=== PATIENT | male | born 1960 | race Caucasian/White ===

== ENCOUNTER 2018-02-19 21:29 | Emergency (ER) | payer SELFPAY ==
[2018-02-19 21:32] VITALS: BP 184/106; PULSE 110; RESP 24; TEMP 36.9; O2SAT 97
[2018-02-19] MEDS: ONDANSETRON 4 MG/2 ML INJ IV ×2 (21:57→23:10)
[2018-02-19] MEDS: LORazepam 2 MG/ML SYRINGE 1 MG IV (21:57)
[2018-02-19 22:11] LABS: Add Manual Diff / Slide Review NO; Basophils Percent Auto 0.9 % (0-2); Eosinophils Percent Auto 0.4 % (2-4); Hematocrit 39.7 % (41-53); Hemoglobin 13.9 g/dL (13.5-17.5); Lymphocytes Percent Auto 7.2 % (25-40); Mean Corpuscular Volume 97.3 fL (80-100); Monocytes Percent Auto 7.4 % (3-14); Neutrophils Absolute Auto 3700 /uL (3000-5900); Neutrophils Percent Auto 84.1 % (50-75); Red Blood Cell Count 4.08 X10^6/uL (4.5-5.9); Red Cell Distribution Width 14.3 % (11.6-14.8); White Blood Cell Count 4.4 X10^3/uL (4.5-11.0)
[2018-02-19] MEDS: SODIUM CHLORIDE 0.9% 1,000 ML 150 ML IV (22:13)
--- NOTE | 2018-02-19 22:13 | PC.NURSE ---
pt comes in via [facility]. states he had been a long time hard life drinker and stopped four years ago. pt experienced stressors latley and began to drink again. Pt states he drank a fith a day for last two weeks or so. stopped cold turkey yesterday at 4pm. began having headaches and tremmors today and called EMS for help. pt had one liter infused in EMS rig and provider verbally changed ordered rate to 150ml/hr for TKO. Pt states he has withdrawn in the past and has experienced headaches, tremmors and sweats. never siezed. Provider notified and orders recieved.
[2018-02-19 22:28] LABS: Platelet Count 41 X10^3/uL (150-400)
[2018-02-19 22:30] LABS: Alanine Aminotransferase 173 IU/L (21-72); Albumin 4.9 g/dL (3.5-5.0); Albumin Globulin Ratio 1.5 (1.0-2.8); Alkaline Phosphatase 101 U/L (38-126); Aspartate Aminotransferase 234 IU/L (17-59); BUN Creatinine Ratio 17.1 (6-22); Bilirubin Total 3.5 mg/dL (0.2-1.3); Blood Urea Nitrogen 12 mg/dL (9-20); Carbon Dioxide 26 mmol/L (22-32); Chloride 101 mmol/L (98-107); Estimated Glomerular Filt Rate > 60.0 mL/min (>60); Ethanol (ETOH) < 10 mg/dL; Globulin 3.3 g/dL (1.7-4.1); Glucose 140 mg/dL (70-100); HEMOLYSIS < 15 (0-50); Lipase 316 U/L (23-300); Potassium 3.7 mmol/L (3.4-5.1); Sodium 141 mmol/L (137-145); Total Protein 8.2 g/dL (6.3-8.2)
--- NOTE | 2018-02-19 22:56 | DI.US.S_ITS ---
PROCEDURE: US ABDOMEN COMPLETE INDICATIONS: ruq pain elevated bili TECHNIQUE: Real-time scanning was performed of the abdominal and retroperitoneal organs, with image documentation. COMPARISON: None. FINDINGS: Liver: Hepatic parenchyma is mottled and demonstrates increased echogenicity, compatible with steatosis. Gallbladder: Demonstrates calculi within its lumen but no evidence of wall thickening. Gallbladder is distended. Biliary ducts: Intrahepatic bile ducts are non-dilated. Extrahepatic bile duct caliber measures 8 mm. Normal is 6-7 mm or less in diameter, or 10 mm or less post-cholecystectomy. Pancreas: Visualized portions of the pancreas are sonographically normal. Spleen: Spleen is normal in size and homogeneous in echotexture. Kidneys: Kidneys are normal in size and echotexture. Right kidney measures 12.5 cm long; left kidney measures 13.8 cm long. No hydronephrosis or nephrolithiasis. No solid masses. Aorta: Not well-seen Iliacs: Not well-seen IVC: Not well-seen Miscellaneous: No free abdominal fluid. IMPRESSION: 1. Mottled appearance of hepatic parenchyma. Hepatic steatosis. 2. Cholelithiasis. Mild gallbladder distention. Recommend correlation with clinical symptoms for cholecystitis. 3. Concordant with preliminary interpretation. Dictated by: Meghna Emery M.D. on 02/20/2018 at 10:22 Approved by: Meghna Emery M.D. on 02/20/2018 at 10:25
--- NOTE | 2018-02-19 23:04 | ED_ITS ---
HPI - Alcohol General Chief Complaint: Toxicology Problem Stated Complaint: ETOH Time Seen by Provider: 02/19/18 21:44 Source: EMS Mode of arrival: EMS Limitations: no limitations History of Present Illness HPI narrative: Patient is a 57-year-old male who presents with alcohol withdrawal. He was sober previously for the last 4 years until 2 weeks ago. He recently moved here not much social life. He started drinking a 5th a day. Last drink was yesterday. Started having chest pain and vomiting today. He started feeling shaking unable to keep anything down. He said he previously home when to [facility] and then his checked himself into rehab place in [place]. complaint: alcohol withdrawal Related Data Home Medications Medication Instructions Recorded Confirmed labetalol 100 mg PO BID #0 tab 04/29/16 lisinopril 10 mg PO QDAY #0 04/29/16 Previous Rx's Medication Instructions Recorded lorazepam [Ativan] 2 mg PO SEE INSTRUCTIONS #11 tab 03/14/16 ondansetron [Zofran ODT] 4 mg SUBLINGUAL Q6HP PRN #10 odt 03/14/16 lorazepam [Ativan] 1 mg PO QD-BID PRN #7 tab 02/20/18 ondansetron HCl [Zofran] 4 mg PO Q6-8H PRN #10 tab 02/20/18 Allergies Allergy/AdvReac Type Severity Reaction Status Date / Time caffeine [CAFFEINE] Allergy Unknown RASH, FEVER Verified 02/19/18 23:02 codeine [CODEINE] Allergy Unknown RASH Verified 02/19/18 23:02 Review of Systems Review of Systems All systems reviewed & are unremarkable except as noted in HPI and below Constitutional Denies chills, Denies fever(s), Denies lethargy and Denies weakness Eyes Denies blurry vision Cardiovascular Reports chest pain (Worse with breathing and movement), Denies dyspnea and Denies dyspnea on exertion Respiratory Denies cough, Denies dyspnea, Denies dyspnea on exertion and Denies wheezing Gastrointestinal Gastrointestinal: Reports as per HPI Neurologic Denies confusion and Denies weakness Psychiatric Denies anxiety, Denies confusion and Denies mood swings Allergic/Immunologic Denies wheezing PFSH Medical History Alcohol abuse (Acute) Social History alcohol intake: current Exam Initial Vital Signs Initial Vital Signs: Vital Signs Temperature 98.4 F 02/19/18 21:32 Pulse Rate 110 H 02/19/18 21:32 Respiratory Rate 24 02/19/18 21:32 Blood Pressure 184/106 H 02/19/18 21:32 Pulse Oximetry 97 02/19/18 21:32 GENERAL: [Well-appearing, well-nourished] and in [no acute] distress. HEENT: Head atraumatic,EOMI, pupils reactive, face symmetric CARDIOVASCULAR: Regular rate and rhythm without murmurs, rubs or gallops. RESPIRATORY: Breath sounds equal bilaterally, no wheezes rales or rhonchi. ABDOMEN: Soft, nontender. Normoactive bowel sounds all 4 quadrants. No guarding or rebound. EXTREMITIES: Normal range of motion, no clubbing or edema. Neurovascularly intact NEUROLOGICAL: Alert and oriented x4.Normal gait and speech. Cranial nerves II through XII grossly intact. No tremors, no asterixis. SKIN: Warm, dry, no laceration, no petechiae, no rashes or lesions. Course Orders Ordered: Discontinued Medications Sodium Chloride (Normal Saline 0.9%) 1,000 mls @ 1,000 mls/hr IV BOLUS ONE Stop: 02/19/18 22:43 Last Infusion: 02/20/18 05:45 Dose: 0 mls/hr Admin: 02/19/18 22:13 Dose: 150 mls/hr Lorazepam (Ativan) 1 mg IV NOW ONE Stop: 02/19/18 21:45 Last Admin: 02/19/18 21:57 Dose: 1 mg Lorazepam (Ativan) 2 mg IV NOW ONE Stop: 02/19/18 22:57 Last Admin: 02/19/18 23:10 Dose: 2 mg Lorazepam (Ativan) 2 mg IV NOW ONE Stop: 02/20/18 03:31 Last Admin: 02/20/18 05:05 Dose: 2 mg Ondansetron HCl (Zofran) 4 mg IV NOW ONE Stop: 02/19/18 21:45 Last Admin: 02/19/18 21:57 Dose: 4 mg Ondansetron HCl (Zofran) 4 mg IV NOW ONE Stop: 02/19/18 22:57 Last Admin: 02/19/18 23:10 Dose: 4 mg Vital Signs - 8 hr 02/19/18 21:32 Temperature 98.4 F Pulse Rate 110 H Respiratory Rate 24 Blood Pressure 184/106 H Pulse Oximetry 97 MDM - Alcohol Lab Data Attestation: I reviewed the patient's lab results. Result diagrams: 02/19/18 22:00 02/19/18 22:00 Labs: Lab Results 02/19/18 02/19/18 02/19/18 Range/Units 22:00 22:00 22:00 WBC 4.4 L (4.5-11.0) X10^3/uL RBC 4.08 L (4.5-5.9) X10^6/uL Hgb 13.9 (13.5-17.5) g/dL Hct 39.7 L (41-53) % MCV 97.3 (80-100) fL MCH 34.0 (26-34) PG MCHC 35.0 (30-36) % RDW 14.3 (11.6-14.8) % Plt Count 41 L (150-400) X10^3/uL Neut % (Auto) 84.1 H (50-75) % Lymph % (Auto) 7.2 L (25-40) % [place] % (Auto) 7.4 (3-14) % Eos % (Auto) 0.4 L (2-4) % Baso % (Auto) 0.9 (0-2) % Neut # (Auto) 3700 (6000-3577) /uL Sodium 141 (137-145) mmol/L Potassium 3.7 (3.4-5.1) mmol/L Chloride 101 (98-107) mmol/L Carbon Dioxide 26 (22-32) mmol/L BUN 12 (9-20) mg/dL Creatinine 0.70 (0.66-1.25) mg/dL Estimated GFR > 60.0 (>60) mL/min BUN/Creatinine Ratio 17.1 (6-22) Glucose 140 H (70-100) mg/dL Calcium 10.0 (8.4-10.2) mg/dL Total Bilirubin 3.5 H (0.2-1.3) mg/dL AST 234 H (17-59) IU/L ALT 173 H (21-72) IU/L Alkaline Phosphatase 101 (38-126) U/L Total Creatine Kinase 438 H (55-170) U/L CK-MB (CK-2) 5.00 H (<2.37) ng/mL CK-MB (CK-2) Rel Index 1.1 L (1.5-5.0) % Troponin I < 0.012 (0.01-0.034) ng/mL Total Protein 8.2 (6.3-8.2) g/dL Albumin 4.9 (3.5-5.0) g/dL Globulin 3.3 (1.7-4.1) g/dL Albumin/Globulin Ratio 1.5 (1.0-2.8) Lipase 316 H (23-300) U/L Ethyl Alcohol < 10 mg/dL Imaging Data Chest x-ray: Attestation: I personally reviewed and interpreted this imaging study as follows: My impression: No acute cardiopulmonary process US - abdomen: Radiologist's impression: 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 Negative reported sonographic Prajapati sign but correlate with whether patient was premedicated. No bile duct dilation or eliana cholecystic fluid. Slightly dilated at 8 mm common bile duct. Not seen distally. Hepatomegaly and fatty liver. Limited visual lies a peña of pain crease and distal duci. MDM Narrative Medical decision making narrative: Patient requires couple doses of IV Ativan but overall does not appear in or delirium tremens. Noted to have elevated bilirubin and liver enzymes. And 2016 total bilirubin was 1.4, AST 194 and ALT 177. Today total bilirubin 3.5 AST 234 and ALT 173. He is reexamined multiple times without any right upper quadrant pain. Ultrasound does show sludge and stones. At this time I have discussed with him that he may electively require a cholecystectomy however a without pain or symptoms at this time likely not needed emergently. I think liver enzymes and bilirubin are likely from recent alcohol use. Discharge Plan Departure Patient Disposition: Home, Self-Care Clinical Impression: Alcohol withdrawal Discharge Date/Time: 02/20/18 05:45 Interventions: ED Discharge Assessment Last Done: 02/20/18 05:46 Instructions: DI for Drug or Alcohol Withdrawal Activity Restrictions/Additional Instructions: *You have been diagnosed with alcohol withdrawal *What to do: New may eventually need to have your gallbladder removed, please make appointment with surgery in the next 1-2 weeks *Continue to take medications as directed -Ativan at taper as prescribed -Zofran 4 mg every 6-8 hours if needed for nausea or vomiting *Follow up with your primary care provider in 2-3 days *Return to ER if you should have or any new, worsening or concerning symptoms Prescriptions: New ondansetron HCl [Zofran] 4 mg tablet 4 mg PO Q6-8H PRN (Reason: nausea and vomiting) Qty: 10 RF: 0 lorazepam [Ativan] 1 mg tablet 1 mg PO QD-BID PRN (Reason: tremor(s)) Qty: 7 RF: 0 No Action lorazepam [Ativan] 2 MG tablet 2 mg PO SEE INSTRUCTIONS Qty: 11 RF: 0 ondansetron [Zofran ODT] 4 MG tablet,disintegrating 4 mg Sublingual Q6HP PRNQty: 10 RF: 0 lisinopril 10 MG tablet 10 mg PO QDAY Qty: 0 RF: 0 labetalol 100 MG tablet 100 mg PO BID Qty: 0 RF: 0 Referrals: [facility] [Outside] [facility] [Outside] Milli Boateng ARNP [Primary Care Provider] -
[2018-02-19 23:10] LABS: Creatine Kinase 438 U/L (55-170)
[2018-02-19] MEDS: LORazepam 2 MG/ML SYRINGE IV (23:10)
--- NOTE | 2018-02-19 23:21 | DI.RAD.S_ITS ---
PROCEDURE: XR CHEST 1V INDICATIONS: chest pain TECHNIQUE: One view of the chest was acquired. COMPARISON: [facility], CR, XR [employer] PA CXR MIN 3VW RT, 04/01/2016, 20:14. FINDINGS: Surgical changes and devices: None. Lungs and pleura: No pleural effusions or pneumothorax. Lungs are clear. Mediastinum: Mediastinal contours appear normal. Heart size is normal. Bones and chest wall: No suspicious bony lesions. Overlying soft tissues appear unremarkable. IMPRESSION: No acute process. Concordant with preliminary interpretation. Dictated by: Meghna Emery M.D. on 02/20/2018 at 9:34 Approved by: Meghna Emery M.D. on 02/20/2018 at 9:34
[2018-02-19 23:25] LABS: CKMB % Relative Index 1.1 % (1.5-5.0)
[2018-02-19 23:26] LABS: Troponin I < 0.012 ng/mL (0.01-0.034)
[2018-02-19 23:49] VITALS: BP 146/107; PULSE 92; RESP 26; O2SAT 99
[2018-02-20 00:10] VITALS: BP 169/96; PULSE 85; RESP 19; O2SAT 96
[2018-02-20] MEDS: LORazepam 2 MG/ML SYRINGE IV (05:05)
[2018-02-20 05:46] VITALS: BP 173/106; PULSE 101; RESP 18; TEMP 37.1; O2SAT 100
== END 2018-02-20 05:45 | disposition home or self-care (01) ==
PROVIDERS: Emergency Provider Emergency Medicine; Family Provider Nurse Practitioner Gerontology; PCP Nurse Practitioner Gerontology
DX: F10.239 Alcohol dependence with withdrawal, unspecified (principal)
CPT/HCPCS: 36415; 71045; 76700; 80053; 80320; 82550; 82553; 83690; 84484; 85025; 96361; 96374; 96375; 96376; 99283; 99284; J2060; J2405

== ENCOUNTER 2018-03-31 20:54 | Emergency (ER) | payer MEDICARE, SELFPAY ==
[2018-03-31 21:07] VITALS: BP 159/89; PULSE 120; RESP 17; O2SAT 99; BMI 27.6
--- NOTE | 2018-03-31 21:29 | PC.NURSE ---
Asked pt. and daughter several times to stay to have ribs and ETOH assessed by MD. Pt. reported that he was going to go home and go to detox in am. He refused my assistance to help - Was a and o at time of leaving. Daughter and grandson with patient.
== END 2018-03-31 21:29 | disposition left against medical advice (07) ==
LOC: ED 21:09
PROVIDERS: Family Provider Nurse Practitioner Gerontology; PCP Nurse Practitioner Gerontology
DX: F10.929 Alcohol use, unspecified with intoxication, unspecified (principal)
CPT/HCPCS: 99282; 99283

== ENCOUNTER 2018-05-21 11:49 | Emergency (ER) | payer MEDICARE, SELFPAY ==
--- NOTE | 2018-05-21 12:10 | PC.NURSE ---
Have gone out twice for patient and center receptionist told me that he has stepped outside, I will check back in the lobby for him and i am checking into the crisis center now to see if we have a bed available.
[2018-05-21 12:21] VITALS: BP 173/103; PULSE 93; RESP 18; TEMP 37.1; O2SAT 98; BMI 28.5
== END 2018-05-21 14:07 | disposition left against medical advice (07) ==
PROVIDERS: Family Provider Nurse Practitioner Gerontology; PCP Nurse Practitioner Gerontology
DX: F10.929 Alcohol use, unspecified with intoxication, unspecified (principal)
CPT/HCPCS: 99281; 99282

== ENCOUNTER 2022-10-24 12:27 | Emergency (ER) | payer MEDICARE, SELFPAY ==
[2022-10-24] VITALS (28 sets, daily range): BP systolic 126–178; BP diastolic 71–92; PULSE 81–107; RESP 12–24; TEMP 36.9; O2SAT 93–98; BMI 27.0
--- NOTE | 2022-10-24 13:39 | DI.CT.S_ITS ---
PROCEDURE: CT CERVICAL SPINE WO CON INDICATIONS: multiple falls / etoh TECHNIQUE: Noncontrast 3 mm thick sections acquired from the skull base to the T4 level. Sagittal and coronal reformats were then constructed. For radiation dose reduction, the following was used: automated exposure control, adjustment of mA and/or kV according to patient size. COMPARISON: None. FINDINGS: Image quality: Excellent. Bones: No fractures or dislocations. Visualized superior ribs are intact. Cervical spondylosis with multilevel facet arthropathy, left greater than right. There are levels of bony foraminal narrowing present. Soft tissues: Prevertebral soft tissues are normal in thickness. No paravertebral hematomas. No apical pneumothoraces. Dense bilateral carotid atherosclerotic calcifications. IMPRESSION: 1. No evidence acute cervical fracture or dislocation. 2. Cervical spondylosis. 3. ASCVD. Dictated by: Sriram Cash M.D. on 10/24/2022 at 14:56 Approved by: Sriram Cash M.D. on 10/24/2022 at 15:00
--- NOTE | 2022-10-24 13:39 | DI.CT.S_ITS ---
PROCEDURE: CT HEAD/BRAIN WO CON INDICATIONS: multiple falls / etoh TECHNIQUE: Noncontrast 4.5 mm thick angled axial sections acquired from the foramen magnum to the vertex, with coronal and sagittal reformats. For radiation dose reduction, the following was used: automated exposure control, adjustment of mA and/or kV according to patient size. COMPARISON: [facility], CT, HEAD WITHOUT CONTRAST, 05/26/2011, 11:05. FINDINGS: Image quality: Excellent. CSF spaces: Basal cisterns are patent. No extra-axial fluid collections. The ventricles are symmetric in size and shape. Brain: No intracranial bleeds or masses. There is cerebral volume loss for age, with resultant ventricular and sulcal prominence. There are periventricular and deep white matter chronic small vessel ischemic changes. There is intracranial internal carotid artery and vertebral artery atherosclerosis. Skull and face: Calvarium and visualized facial bones appear intact, without suspicious lesions. Sinuses: Visualized sinuses and mastoids are clear. IMPRESSION: 1. No evidence acute intracranial abnormality. 2. ASCVD. Dictated by: Sriram Cash M.D. on 10/24/2022 at 15:02 Approved by: Sriram Cash M.D. on 10/24/2022 at 15:03
[2022-10-24 14:19] LABS: Add Manual Diff / Slide Review NO; Basophils Absolute Auto 100 /uL (0-100); Basophils Percent Auto 3.1 % (0-2); Eosinophils Absolute Auto 0 /uL (0-450); Eosinophils Percent Auto 0.5 % (2-4); Hematocrit 39.5 % (41-53); Hemoglobin 13.5 g/dL (13.5-17.5); Lymphocytes Absolute Auto 2000 /uL (1100-4500); Lymphocytes Percent Auto 46.7 % (25-40); Mean Corpuscular HGB Conc 34.2 % (30-36); Mean Corpuscular Hemoglobin 31.5 PG (26-34); Mean Corpuscular Volume 92.2 fL (80-100); Monocytes Absolute Auto 400 /uL (0-900); Monocytes Percent Auto 9.3 % (3-14); Neutrophils Absolute Auto 1700 /uL (1500-7000); Neutrophils Percent Auto 40.4 % (50-75); Platelet Count 189 X10^3/uL (150-400); Red Blood Cell Count 4.29 X10^6/uL (4.5-5.9); Red Cell Distribution Width 17.4 % (11.6-14.8); White Blood Cell Count 4.2 X10^3/uL (4.5-11.0)
[2022-10-24 14:33] LABS: Acetaminophen < 10 ug/mL (10-30); Alanine Aminotransferase 48 IU/L (<50); Albumin 4.5 g/dL (3.5-5.0); Alkaline Phosphatase 82 U/L (38-126); Aspartate Aminotransferase 80 IU/L (17-59); Bilirubin Total 0.8 mg/dL (0.2-1.3); Blood Urea Nitrogen 19 mg/dL (9-20); COVID19 -Nasal RAPID Negative (Negative); Calcium 8.6 mg/dL (8.4-10.2); Carbon Dioxide 20 mmol/L (22-32); Chloride 106 mmol/L (98-107); Estimated Glomerular Filt Rate > 60 mL/min (>60); Globulin 4.4 g/dL (1.7-4.1); Glucose 84 mg/dL (80-110); Potassium 4.4 mmol/L (3.4-5.1); Salicylate < 1.0 mg/dL (<20); Sodium 146 mmol/L (137-145); Total Protein 8.9 g/dL (6.3-8.2)
[2022-10-24 14:41] LABS: Ethanol (ETOH) 387 mg/dL; HEMOLYSIS 63 (0-50)
[2022-10-24 14:48] LABS: Free T4, Direct Thyroxine 0.67 ng/dL (0.78-2.19)
[2022-10-24 15:03] LABS: Thyroid Stimulating Hormone 0.429 uIU/mL (0.47-4.68)
--- NOTE | 2022-10-24 15:23 | ED.FALL ---
HPI - Fall General Chief Complaint: Fall Stated Complaint: alcohol issues Time Seen by Provider: 10/24/22 13:50 Source: family Mode of arrival: Wheelchair History of Present Illness HPI Narrative: Patient is a 62-year-old male. A significant history of alcohol abuse. Also has a history of alcohol withdrawal. Is here for evaluation of injuries that he sustained when 2 days ago he fell. He states he was drinking at the time. He did sustain a bruise to his left forehead. Also has bruising on the back of his right wrist. He denies any neck pain but does admit to drinking alcohol today. He is also here seeking help with alcohol. He was recently admitted to an outside facility for several days for alcohol detox. He was discharged with resources for follow-up and rehab however he has continued to drink. Here in the emergency department he denies any specific pain. Related Data Allergies Allergy/AdvReac Type Severity Reaction Status Date / Time caffeine [CAFFEINE] Allergy Unknown RASH, FEVER Verified 10/24/22 17:11 codeine [CODEINE] Allergy Unknown RASH Verified 10/24/22 17:11 Review of Systems Review of Systems ROS Unobtainable: All systems reviewed & are unremarkable except as noted in HPI and below Patient History Medical History Alcohol abuse Social History Smoking Status: Never smoker alcohol intake: current Smoking Status: Never smoker alcohol intake frequency: 3 or more drinks per day Substance Use Type: does not use Exam Initial Vital Signs Initial Vital Signs: Vital Signs Temperature 98.5 F 10/24/22 13:03 Pulse Rate 89 10/24/22 13:03 Respiratory Rate 18 10/24/22 13:03 Blood Pressure 142/86 H 10/24/22 13:03 Pulse Oximetry 97 10/24/22 13:03 Oxygen Delivery Method Room Air 10/24/22 13:03 Const General: cooperative and comfortable HENMT Head: contusion (Left forehead) Face and sinus: normal facial exam Resp Effort & Inspection: normal respiratory effort Auscultation: clear to auscultation bilaterally Cardio Rate: regular rate Rhythm: regular rhythm Skin Other: Contusion on the back of the right hand Neuro General: patient alert, patient awake and moves all extremities Extrem Other: Contusion on the back of the right hand however is full range of motion. Course Orders Ordered: ED Orders 10/24/22 13:39 CT cervical spine wo con Stat CT head/brain wo con Stat 10/24/22 13:43 Consult to DIELECTRIC TESTER - Taxonomist Stat 10/24/22 13:52 EKG-12 Lead Stat 10/24/22 14:08 Acetaminophen Stat COVID19 -Nasal RAPID Stat Complete Blood Count AUTO DIFF Stat Comprehensive Metabolic Panel Stat Ethanol (ETOH) Stat Free T4, Direct Thyroxine Stat Salicylate Stat Thyroid Stimulating Hormone Stat 10/24/22 16:30 Urine Culture Stat Urine Drug Screen, Rapid Stat Urine Microscopic Stat 10/24/22 18:00 ETOH [Ethanol (ETOH)] Stat Discontinued Medications Acetaminophen (Acetaminophen 325 Mg Tablet) 650 mg PO NOW ONE Stop: 10/24/22 15:24 Last Admin: 10/24/22 15:43 Dose: 650 mg Documented By: NEMO Sodium Chloride (Normal Saline 0.9%) 1,000 mls @ 1,000 mls/hr IV BOLUS ONE Stop: 10/24/22 16:22 Last Infusion: 10/24/22 16:52 Dose: 0 mls/hr Documented By: Admin: 10/24/22 15:44 Dose: 1,000 mls/hr Documented By: NEMO Thiamine HCl 100 mg/ Sodium (Chloride) 101 mls @ 404 mls/hr IV NOW ONE Stop: 10/24/22 15:24 Last Infusion: 10/24/22 15:59 Dose: 0 mls/hr Documented By: Admin: 10/24/22 15:44 Dose: 404 mls/hr Documented By: NEMO Vital Signs Vital signs: Vital Signs - 8 hr 10/24/22 13:03 10/24/22 13:33 10/24/22 13:34 Temperature 98.5 F Pulse Rate 89 84 Respiratory Rate 18 Blood Pressure 142/86 H 164/91 H Pulse Oximetry 97 96 Oxygen Delivery Method Room Air 10/24/22 13:34 10/24/22 14:00 10/24/22 14:00 Temperature Pulse Rate 82 81 Respiratory Rate 20 19 Blood Pressure 174/92 H Pulse Oximetry 96 95 Oxygen Delivery Method 10/24/22 14:30 10/24/22 14:31 10/24/22 14:31 Temperature Pulse Rate 90 89 Respiratory Rate 19 14 Blood Pressure 144/77 H Pulse Oximetry 96 97 Oxygen Delivery Method 10/24/22 15:00 10/24/22 15:04 10/24/22 15:04 Temperature Pulse Rate 92 H 89 Respiratory Rate 12 21 Blood Pressure 152/82 H Pulse Oximetry 98 96 Oxygen Delivery Method 10/24/22 15:30 10/24/22 15:30 10/24/22 16:00 Temperature Pulse Rate 93 H Respiratory Rate 12 Blood Pressure 149/81 H 126/71 Pulse Oximetry 97 Oxygen Delivery Method Room Air 10/24/22 16:00 10/24/22 16:22 10/24/22 16:22 Temperature Pulse Rate 98 H 102 H Respiratory Rate 22 12 Blood Pressure 178/90 H Pulse Oximetry 97 97 Oxygen Delivery Method 10/24/22 16:30 10/24/22 16:30 10/24/22 17:00 Temperature Pulse Rate 100 H Respiratory Rate 17 Blood Pressure 156/87 H 161/83 H Pulse Oximetry 95 Oxygen Delivery Method Room Air 10/24/22 17:00 10/24/22 17:30 Temperature Pulse Rate 91 H 101 H Respiratory Rate 20 22 Blood Pressure Pulse Oximetry 97 Oxygen Delivery Method Room Air MDM - Fall Medical Records Attestation: I reviewed the patient's medical records. Lab Data Attestation: I reviewed the patient's lab results. 10/24/22 14:08 10/24/22 14:08 Labs: Lab Results 10/24/22 10/24/22 10/24/22 Range/Units 14:08 14:08 14:08 WBC 4.2 L (4.5-11.0) X10^3/uL RBC 4.29 L (4.5-5.9) X10^6/uL Hgb 13.5 (13.5-17.5) g/dL Hct 39.5 L (41-53) % MCV 92.2 (80-100) fL MCH 31.5 (26-34) PG MCHC 34.2 (30-36) % RDW 17.4 H (11.6-14.8) % Plt Count 189 (150-400) X10^3/uL Neut % (Auto) 40.4 L (50-75) % Lymph % (Auto) 46.7 H (25-40) % [place] % (Auto) 9.3 (3-14) % Eos % (Auto) 0.5 L (2-4) % Baso % (Auto) 3.1 H (0-2) % Neut # (Auto) 1700 (3953-3526) /uL Lymph # (Auto) 2000 (5241-0076) /uL [place] # (Auto) 400 (0-900) /uL Eos # (Auto) 0 (0-450) /uL Baso # (Auto) 100 (0-100) /uL Sodium 146 H (137-145) mmol/L Potassium 4.4 (3.4-5.1) mmol/L Chloride 106 (98-107) mmol/L Carbon Dioxide 20 L (22-32) mmol/L BUN 19 (9-20) mg/dL Creatinine 0.73 (0.66-1.25) mg/dL Estimated GFR > 60 (>60) mL/min BUN/Creatinine Ratio 26.0 H (6-22) Glucose 84 (80-110) mg/dL Calcium 8.6 (8.4-10.2) mg/dL Total Bilirubin 0.8 (0.2-1.3) mg/dL AST 80 H (17-59) IU/L ALT 48 (<50) IU/L Alkaline Phosphatase 82 (38-126) U/L Total Protein 8.9 H (6.3-8.2) g/dL Albumin 4.5 (3.5-5.0) g/dL Globulin 4.4 H (1.7-4.1) g/dL Albumin/Globulin Ratio 1.0 (1.0-2.8) TSH 0.429 L (0.47-4.68) uIU/mL Free T4 0.67 L (0.78-2.19) ng/dL Urine RBC (0-5/HPF) Urine WBC (0-5/HPF) Urine Bacteria (None) Urine Mucus (Negative) Ur Culture Indicated? Salicylates < 1.0 (<20) mg/dL U Opiates 300ng/mL cut (Negative) Ur Oxycodone Screen (Negative) Urine Methadone Screen (Negative) Acetaminophen < 10 (10-30) ug/mL Ur Barbiturates Screen (Negative) U Tricyclic Antidepress (Negative) Ur Phencyclidine Scrn (Negative) Ur Amphetamines Screen (Negative) U Methamphetamines Scrn (Negative) Ur MDMA Scrn (Ecstasy) (Negative) U Benzodiazepines Scrn (Negative) Urine Cocaine Screen (Negative) U Marijuana (THC) Screen (Negative) Ethyl Alcohol 387 H ( - 10) mg/dL SARS-CoV-2 (PCR) (Negative) 10/24/22 10/24/22 10/24/22 Range/Units 14:08 16:30 16:30 WBC (4.5-11.0) X10^3/uL RBC (4.5-5.9) X10^6/uL Hgb (13.5-17.5) g/dL Hct (41-53) % MCV (80-100) fL MCH (26-34) PG MCHC (30-36) % RDW (11.6-14.8) % Plt Count (150-400) X10^3/uL Neut % (Auto) (50-75) % Lymph % (Auto) (25-40) % [place] % (Auto) (3-14) % Eos % (Auto) (2-4) % Baso % (Auto) (0-2) % Neut # (Auto) (8807-0036) /uL Lymph # (Auto) (3824-9964) /uL [place] # (Auto) (0-900) /uL Eos # (Auto) (0-450) /uL Baso # (Auto) (0-100) /uL Sodium (137-145) mmol/L Potassium (3.4-5.1) mmol/L Chloride (98-107) mmol/L Carbon Dioxide (22-32) mmol/L BUN (9-20) mg/dL Creatinine (0.66-1.25) mg/dL Estimated GFR (>60) mL/min BUN/Creatinine Ratio (6-22) Glucose (80-110) mg/dL Calcium (8.4-10.2) mg/dL Total Bilirubin (0.2-1.3) mg/dL AST (17-59) IU/L ALT (<50) IU/L Alkaline Phosphatase (38-126) U/L Total Protein (6.3-8.2) g/dL Albumin (3.5-5.0) g/dL Globulin (1.7-4.1) g/dL Albumin/Globulin Ratio (1.0-2.8) TSH (0.47-4.68) uIU/mL Free T4 (0.78-2.19) ng/dL Urine RBC 0-1/hpf (0-5/HPF) Urine WBC 5-10/hpf H (0-5/HPF) Urine Bacteria Few (2-10) H (None) Urine Mucus 2+ H (Negative) Ur Culture Indicated? Specimen cultured Salicylates (<20) mg/dL U Opiates 300ng/mL cut Negative (Negative) Ur Oxycodone Screen Negative (Negative) Urine Methadone Screen Negative (Negative) Acetaminophen (10-30) ug/mL Ur Barbiturates Screen Positive H (Negative) U Tricyclic Antidepress Negative (Negative) Ur Phencyclidine Scrn Negative (Negative) Ur Amphetamines Screen Negative (Negative) U Methamphetamines Scrn Negative (Negative) Ur MDMA Scrn (Ecstasy) Negative (Negative) U Benzodiazepines Scrn Positive H (Negative) Urine Cocaine Screen Negative (Negative) U Marijuana (THC) Screen Negative (Negative) Ethyl Alcohol ( - 10) mg/dL SARS-CoV-2 (PCR) Negative (Negative) Urine Dip Bedside Urine Glucose Negative Bedside Urine Bilirubin - Negative Bedside Urine Ketone +/- 5 Urine Specific [place] 1.030 Bedside Urine Occult Blood +/- Bedside Urine pH 5.5 Bedside Urine Protein ++ 100 Bedside Urine Urobilinogen - Negative Bedside Urine Nitrite - Negative Bedside Urine Leukocytes - Negative Esterase Imaging Data CT - cervical spine: Radiologist's Impression: PROCEDURE:? CT CERVICAL SPINE WO CON ? INDICATIONS:? multiple falls / etoh ? TECHNIQUE:? Noncontrast 3 mm thick sections acquired from the skull base to the T4 level.? Sagittal and coronal reformats were then constructed.? For radiation dose reduction, the following was used:? automated exposure control, adjustment of mA and/or kV according to patient size.? ? COMPARISON:? None. ? FINDINGS:? Image quality:? Excellent.? ? Bones:? No fractures or dislocations.? Visualized superior ribs are intact.? Cervical spondylosis with multilevel facet arthropathy, left greater than right.? There are levels of bony foraminal narrowing present. ? Soft tissues:? Prevertebral soft tissues are normal in thickness.? No paravertebral hematomas.? No apical pneumothoraces.? Dense bilateral carotid atherosclerotic calcifications.? ? ? IMPRESSION:? ? 1. No evidence acute cervical fracture or dislocation. ? 2. Cervical spondylosis. ? 3. ASCVD.? CT scan - head: Radiologist's Impression: PROCEDURE:? CT HEAD/BRAIN WO CON ? INDICATIONS:? multiple falls / etoh ? TECHNIQUE:? Noncontrast 4.5 mm thick angled axial sections acquired from the foramen magnum to the vertex, with coronal and sagittal reformats.? For radiation dose reduction, the following was used:? automated exposure control, adjustment of mA and/or kV according to patient size.? ? COMPARISON:? [facility], CT, HEAD WITHOUT CONTRAST, 05/26/2011, 11:05. ? FINDINGS:? Image quality:? Excellent.? ? CSF spaces:? Basal cisterns are patent.? No extra-axial fluid collections.? The ventricles are symmetric in size and shape.? ? Brain:? No intracranial bleeds or masses.? There is cerebral volume loss for age, with resultant ventricular and sulcal prominence.? There are periventricular and deep white matter chronic small vessel ischemic changes.? There is intracranial internal carotid artery and vertebral artery atherosclerosis.? ? Skull and face:? Calvarium and visualized facial bones appear intact, without suspicious lesions.? ? Sinuses:? Visualized sinuses and mastoids are clear.? ? IMPRESSION:? ? 1. No evidence acute intracranial abnormality. ? 2. ASCVD ECG Data Attestation: I personally reviewed and interpreted this ECG as follows: Interpretation: Sinus rhythm Ventricular rate is 78 Normal axis Normal QRS Normal QTC PVC MDM Narrative Medical decision making narrative: Patient's head CT and cervical spine CT are negative. He does have a contusion to his left forehead and a contusion in the back of his right wrist that did no specific intervention here in the emergency department. He reports no other injuries from his fall 2 days ago. He is intoxicated. He does not have any signs of withdrawal currently but I would not be surprised given his previous history. I was able to review the records from his prior admission. He states he does have a place at a rehab facility however social work was able to look into this facility appears that it is not a medical detox facility which I feel that the patient would need medications for the withdrawal. Care turned over to Dr. Jacobo to follow-up on his alcohol level and disposition. Discharge Plan Departure Referrals: Milli Boateng ARNP [Primary Care Provider] -
[2022-10-24] MEDS: ACETAMINOPHEN 325 MG TABLET 650 MG PO (15:43)
[2022-10-24] MEDS: THIAMINE 100 MG in SODIUM CHLORIDE 0.9% 100 ML 404 MG IV (15:44)
[2022-10-24] MEDS: SODIUM CHLORIDE 0.9% 1,000 ML 1000 ML IV (15:44)
[2022-10-24 17:27] LABS: UR Morphine/Opiate cutoff 300 Negative (Negative); Ur Creatinine Normal (Normal); Ur Specific Gravity Normal (Normal); Urine Amphetamines Negative (Negative); Urine Cocaine Negative (Negative); Urine Methamphetamines Negative (Negative); Urine Phencyclidine Negative (Negative); Urine Tetrahydrocannabinol Negative (Negative); Urine pH Normal (Normal)
[2022-10-24 17:28] LABS: Urine Barbiturates Positive (Negative); Urine Benzodiazepines Positive (Negative); Urine MDMA Negative (Negative); Urine Methadone Negative (Negative); Urine Oxycodone Negative (Negative); Urine Tricyclic Antidepressant Negative (Negative)
[2022-10-24 17:30] LABS: RBC Urine 0-1/HPF (0-5/HPF); WBC Urine 5-10/HPF (0-5/HPF)
[2022-10-24 17:31] LABS: Bacteria Urine Few (2-10); Culture Indicated Urine Specimen Cultured; Mucus Urine 2+ (Negative)
--- NOTE | 2022-10-24 17:49 | CM.SWNOTE ---
ANIMAL EVISCERATOR Assessment ANIMAL EVISCERATOR - Supervisor Scrap Preparation Assessment ANIMAL EVISCERATOR/Supervisor Scrap Preparation Assessment Time Spent with Patient Start date 10/24/22 Visit Start Time 17:10 End date 10/24/22 Visit End Time 17:25 Total time Care Management spent on 15 minutes patient visit-in minutes Substance Abuse Screening Include Onset, Duration, Intensity Presenting Problem Patient presents to ED with daughter due to ETOH dependence and concern for withdrawals. Patient's daughter was called by hotel staff where patient was staying, patient was found unconscious. Patient endorses he drank at least 10-12 ounces of [employer] whiskey today, patient endorses drinking a 1/ 5 of whiskey daily. Patient's BAL upon arrival is 387. Patient's daughter endorses that patient has hx of drinking a half gallon of ETOH on a daily basis. Precipitating Event(s) Patient endorses his brother recently in [place]. Patient recently discharged from [facility] 10/14/22-10/19/22 for ETOH withdrawals, prior to that patient was at [facility] 09/21/22-/10/04/22 for similar presentation as well. Patient Strengths Patient is seeking help and sobriety, patient's daughter is supportive and wanting to support patient in getting into [facility] in [place], [place] (Ph. # [phone]) A year long rehab, sobriety program. Current Behavioral Health Provider(s) Patient has hx of with [facility], Provider, Ph. # in [place], patient denies current outpatient provider. Family Hx of Behavioral Abuse None reported Rehab Facilities? ((Date(s), Location(s) Patient has hx of detoxing at ) hospitals, patient endorses he was at [facility] a few years ago. Patient endorses hx of engaging in AA. History of Withdrawal? Seizures? Patient denies hx of seizures and DTs. Patient endorses hx of shakes. Longest Period of Sobriety Patient endorses that he was sober from [id number] Psychosocial information & Support Patient is 62 y/o male who has Systems [facility] in [place]. Patient has daughter, grandchildren and men's group from [employer] as supports. School/Work Patient is on SSI disability. Legal Concerns Legal Matters - Outstanding Issues Patient endorses he has a breathalyzer in his car, and has an upcoming court date for a charge he does not know the specifics of. Mental Status Orientation (Person/Place/Time) A/Ox4 Stated Mood ok Affect (Congruent with Mood?) euthymic, full range, congruent with mood Thought Content - Specify/Describe None reported Obsessions, Delusions, Hallucinations Thought Processes (Itlvrur-Hrvkbdus-Kqtj coherent Natngcoq-Kbweqibq-Mvplsoxjnw- Yavsbkfngddkcg-Nmvqvud-Bbowiceoqshy- Thought Blocking) Speech (Jlcdhr-Hrca-Tlnmizm-Rapid-Soft- normal Loud-Pressured) Motor (Itnana-Halyfgnjm-Lxme-Other) normal Insight (Dfsv-Ygxc-Lhid/Limited) fair Judgement (Whcm-Daou-Vgjb/Limited) fair Impulse Control (Adequate-Impaired) adequate Memory (Jmromjdso-Qyjyhs-Xomlsf, intact, not formally assessed Impaired-Intact) Concentration (Intact-Impaired) intact Attention (Intact-Impaired) intact Behavior (Appropriate-Inappropriate) appropriate Additional Comment Patient presents as calm, cooperative and communicative. Risk Assessment Suicidal Ideation (Plan) No Homicidal Ideation (Plan) No Intervention Intervention ANIMAL EVISCERATOR enters room to meet with patient. Patient endorses daily Whiskey intake, and endorses that his brother recently. Patient presents as tearful, patient endorses he is voluntarily seeking detox and wants to go the the [facility] year long inpatient program he went to before. Patient has support from daughter and support from [employer] who will pick patient up upon d/c from [facility](ph. # [phone]) Patient has hx of daily drinking, going to hospital due to withdrawals, discharging and then drinking again. Patient endorses plan to detox and sustain from drinking. It is the opinion of this ANIMAL EVISCERATOR that patient is appropriate for and will benefit from detox for crisis stabilization and medication management. ANIMAL EVISCERATOR reviews the above with ED provider Dr. Valdes who indicates agreement and understanding. Plan RA Plan ANIMAL EVISCERATOR to seek detox bed for patient upon medical clearance . ESE FergusonSW
[2022-10-24 19:16] LABS: Ethanol (ETOH) 230 mg/dL
--- NOTE | 2022-10-24 19:56 | CM.SWNOTE ---
BILLING SPEC Note BILLING SPEC calls [facility] intake Julito per patient and patient's daughter's report of plan of care for rehabilitation. Julito reports that they are not a detox facility and patient will need to detox prior to rehab, it is reported that Julito can pick patient up when he is medically clear from detox. (Ph. # [phone] BILLING SPEC calls [facility], it is reported they are full. BILLING SPEC calls [facility], it is reported they are full. BILLING SPEC calls [facility], no answer BILLING SPEC calls [facility], it is reported there are no voluntary intakes until Thursday. BILLING SPEC calls [facility], it is reported they have detox beds, BILLING SPEC faxes clinicals for review. [facility] calls and reports patient has been accepted at [facility] with ETA of 2:30 AM on 10/25/22. Accepting provider VICKIE Garcia. Nurse to Nurse Ph. # [phone]. With patient's consent, BILLING SPEC calls patient's daughter Bigg (Ph. [phone] ) who reports she will gather clothing and belongings and bring them to patient at facility in [place]. Bigg reports that she spoke with Julito and he plans to pick patient up from detox. BILLING SPEC calls Julito with [facility] and leaves with patient's consent regarding patient's acceptance to detox facility [facility], BILLING SPEC provides phone number and address for facility. Plan: patient to transfer to [facility] via EMS for detox bed early tomorrow AM, Patient to f/u with residential rehab after detox. Lexis Chacko, JEWEL INSERTER
[2022-10-24] MEDS: PHENobarbital 65 MG/ML VIAL 260 MG IV (20:03)
[2022-10-25] VITALS: PULSE 81; O2SAT 94
[2022-10-25 00:30] VITALS: PULSE 93; O2SAT 95
[2022-10-25 01:00] VITALS: PULSE 77; RESP 20; O2SAT 93
== END 2022-10-25 02:01 ==
PROVIDERS: Emergency Medicine; Emergency Provider Emergency Medicine; Family Provider Nurse Practitioner Gerontology; PCP Nurse Practitioner Gerontology
DX: F10.129 Alcohol abuse with intoxication, unspecified (principal); S00.83XA Contusion of other part of head, initial encounter; W19.XXXA Unspecified fall, initial encounter; Y90.8 Blood alcohol level of 240 mg/100 ml or more; Z20.822 Contact with and (suspected) exposure to COVID-19; R07.9 Chest pain, unspecified
CPT/HCPCS: 36415; 70450; 72125; 80053; 80305; 80320; 80329; 81003; 81015; 84439; 84443; 85025; 87086; 87635; 93005; 93010; 96374; 99285; C9803; G0480; J2560

== ENCOUNTER 2024-10-29 08:06 | Inpatient (IN) | payer MEDICARE, SELFPAY ==
[2024-10-29] VITALS (29 sets, daily range): BP systolic 118–196; BP diastolic 63–110; PULSE 87–155; RESP 6–28; TEMP 36.4–36.9; O2SAT 89–99; BMI 26.3
--- NOTE | 2024-10-29 08:28 | EKG_ITS ---
[facility] [address] [place] [address] Test Date: 2024-10-29 Pat Name: Gold Alaniz Department: [facility] Room: Gender: Male Fitness Instructor: : 1960 Requested By: Order Number: [id number] Reading MD: Gian Mc MD Measurements Intervals [place] Rate: 110 P: 85 MA: 178 QRS: 63 QRSD: 140 T: 39 QT: 368 QTc: 498 Interpretive Statements Critical Test Result: Arrhythmia Poor data quality, interpretation may be adversely affected Sinus tachycardia with frequent and consecutive premature ventricular complexes Right bundle branch block Electronically Signed On 10-30-2024 8:25:11 PDT by Gian Mc MD
--- NOTE | 2024-10-29 08:29 | DI.RAD.S_ITS ---
PROCEDURE: XR KNEE LT 3V INDICATIONS: Pain/injury TECHNIQUE: 3 views of the knee were acquired. COMPARISON: Located Within [facility], CR, XR KNEE 3 VIEWS BILATERAL, 09/21/2022, 11:15. FINDINGS: Bones: No fractures or dislocations. No suspicious bony lesions. Tiny osteophytes of the patella and central knee Soft tissues: No joint effusion. No suspicious soft tissue calcifications. IMPRESSION: No acute bony abnormality or significant effusion. Tiny osteophytes consistent with mild osteoarthrosis. Dictated by: Craig Hernandez M.D. on 10/29/2024 at 8:24 Approved by: Craig Hernandez M.D. on 10/29/2024 at 8:26
--- NOTE | 2024-10-29 08:32 | ED_ITS ---
HPI - Alcohol General Chief Complaint: Toxicology Problem Stated Complaint: LT knee pain; serious alcohol withdrawl Time Seen by Provider: 10/29/24 08:22 History of Present Illness HPI narrative: Patient here for alcohol withdrawal shakes tremors. No seizure or hallucinations or altered mental status. Last alcohol consumption 2-1/2 hours ago. Patient drinks a 5th of whiskey a day. He is trying to stop drinking. Complains of left knee pain. 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 Has had pain and swelling since then. No nausea or vomiting. Patient is very tremulous. Patient is cooperative. Related Data Allergies Allergy/AdvReac Type Severity Reaction Status Date / Time caffeine [CAFFEINE] Allergy Unknown RASH, FEVER Verified 10/29/24 11:37 codeine [CODEINE] Allergy Unknown RASH Verified 10/29/24 11:37 Review of Systems Review of Systems Narrative: GENERAL: Negative chills, fatigue, malaise, fever, sweats. HEENT: Negative sinus pain, ear pain, sore throat RESPIRATORY: Negative dyspnea, cough CARDIOVASCULAR: Negative chest pain, palpitations GASTROINTESTINAL: Negative vomiting, nausea, abdominal pain : Negative dysuria, frequency, hematuria MUSCULOSKELETAL: Positive muscle or bony pain SKIN: Negative rash, skin lesions NEUROLOGIC: Negative weakness, numbness, positive tremors ROS Unobtainable: All systems reviewed & are unremarkable except as noted in HPI and below Patient History Medical History Alcohol abuse Social History household members: none Smoking Status: Never smoker alcohol intake: current alcohol intake frequency: 3 or more drinks per day Exam Narrative Exam Narrative: GENERAL: in no distress, not toxic not dyspneic HEAD: Normocephalic. EYES: Pupils equal round ENT: Mucous membranes moist. NECK: Trachea midline. CARDIOVASCULAR: Regular rate and rhythm RESPIRATORY: Clear to auscultation. Breath sounds equal bilaterally. No wheezes, rales, or rhonchi. GASTROINTESTINAL: Abdomen soft, non-tender EXTREMITIES: No gross deformities. Shoes and socks and pants removed. Left knee more edematous compared to the left. Multiple abrasions of the legs due to being on the ground he states from working on his truck. Limited flexion- extension of the knee due to pain. Pain but no laxity of the left knee with anterior posterior medial rotational stress, lateral stress of the left leg. Foot warm soft and pink strong pedal pulse brisk cap refills light touch intact to foot and toes. BACK: No flank tenderness. NEURO: AOx4. Clear speech, patient is very tremulous. SKIN: Warm and dry PSYCH: Appears anxious, is cooperative Initial Vital Signs Initial Vital Signs: Vital Signs Temperature 98.4 F 10/29/24 08:10 Pulse Rate 120 H 10/29/24 08:10 Respiratory Rate 24 10/29/24 08:10 Blood Pressure 196/110 H 10/29/24 08:10 Pulse Oximetry 99 10/29/24 08:10 Oxygen Delivery Method Room Air 10/29/24 08:10 Course Orders Ordered: ED Orders 10/29/24 08:28 EKG-12 Lead Stat 10/29/24 08:29 XR knee LT 3V Stat Urine Drug Screen, Rapid Stat 10/29/24 08:39 Consult to [facility] [place] Chief Legal Officer Stat 10/29/24 08:47 Complete Blood Count AUTO DIFF Stat Comprehensive Metabolic Panel Stat Ethanol (ETOH) Stat Magnesium Stat Folic Acid (Folic Acid 1 Mg Tablet) 1 mg PO DAILY [facility] Last Admin: 10/29/24 09:18 Dose: 1 mg Documented By: Lorazepam (Lorazepam 2 Mg/Ml Inj) 0 mg IV CIWAPRN PRN; Protocol PRN Reason: Alcohol Withdrawal Last Admin: 10/29/24 11:30 Dose: 2 mg Documented By: Admin: 10/29/24 08:55 Dose: 2 mg Documented By: DONI Multivitamins (Multivitamin 1 Tablet) 1 tab PO DAILY [facility] Last Admin: 10/29/24 09:18 Dose: 1 tab Documented By: Ondansetron HCl (Ondansetron 4 Mg/2 Ml Inj) 4 mg IV Q6HR PRN PRN Reason: Nausea And Vomiting Last Admin: 10/29/24 08:58 Dose: 4 mg Documented By: DONI Phenobarbital (Phenobarbital 65 Mg/Ml Vial) 65 mg IV Q8H [facility] Stop: 11/01/24 09:01 Thiamine HCl (Thiamine 100 Mg Tablet) 100 mg PO DAILY [facility] Stop: 11/01/24 09:01 Last Admin: 10/29/24 09:18 Dose: 100 mg Documented By: Discontinued Medications Sodium Chloride (Normal Saline 0.9%) 1,000 mls @ 1,000 mls/hr IV BOLUS ONE Stop: 10/29/24 10:29 Last Infusion: 10/29/24 11:22 Dose: Infused Documented By: Admin: 10/29/24 09:32 Dose: 1,000 mls/hr Documented By: Phenobarbital (Phenobarbital 65 Mg/Ml Vial) 260 mg IV NOW ONE Stop: 10/29/24 09:01 Last Admin: 10/29/24 09:18 Dose: 260 mg Documented By: Vital Signs Vital signs: Vital Signs - 8 hr 10/29/24 08:10 10/29/24 08:22 10/29/24 08:30 Temperature 98.4 F Pulse Rate 120 H 104 H 109 H Respiratory Rate 24 14 Blood Pressure 196/110 H Pulse Oximetry 99 96 Oxygen Delivery Method Room Air Room Air Oxygen Flow Rate 10/29/24 08:33 10/29/24 08:33 10/29/24 09:00 Temperature Pulse Rate 104 H Respiratory Rate 24 Blood Pressure 130/91 H 153/85 H Pulse Oximetry 94 Oxygen Delivery Method Oxygen Flow Rate 10/29/24 09:00 10/29/24 09:30 10/29/24 09:30 Temperature Pulse Rate 98 H 93 H Respiratory Rate 23 24 Blood Pressure 153/83 H Pulse Oximetry 89 L 93 Oxygen Delivery Method Nasal Cannula Nasal Cannula Oxygen Flow Rate 2 MDM - Alcohol Lab Data 10/29/24 08:47 10/29/24 08:47 Labs: Lab Results 10/29/24 Range/Units 08:47 WBC 8.5 (4.5-11.0) X10^3/uL RBC 4.27 L (4.5-5.9) X10^6/uL Hgb 13.4 L (13.5-17.5) g/dL Hct 38.1 L (41-53) % MCV 89.3 (80-100) fL MCH 31.4 (26-34) PG MCHC 35.2 (30-36) % RDW 16.7 H (11.6-14.8) % Plt Count 97 L (150-400) X10^3/uL Neut % (Auto) 72.5 (50-75) % Lymph % (Auto) 17.9 L (25-40) % [place] % (Auto) 8.9 (3-14) % Eos % (Auto) 0.3 L (2-4) % Baso % (Auto) 0.4 (0-2) % Neut # (Auto) 6200 (5228-3404) /uL Lymph # (Auto) 1500 (3915-2919) /uL [place] # (Auto) 800 (0-900) /uL Eos # (Auto) 0 (0-450) /uL Baso # (Auto) 0 (0-100) /uL Sodium 141 (137-145) mmol/L Potassium 3.8 (3.4-5.1) mmol/L Chloride 104 (98-107) mmol/L Carbon Dioxide 16 L (22-32) mmol/L BUN 29 H (9-20) mg/dL Creatinine 0.98 (0.66-1.25) mg/dL Estimated GFR > 60 (>60) mL/min BUN/Creatinine Ratio 29.6 H (6-22) Glucose 154 H (80-110) mg/dL Calcium 9.5 (8.4-10.2) mg/dL Magnesium 1.9 (1.6-2.3) mg/dL Total Bilirubin 3.0 H (0.2-1.3) mg/dL AST 97 H (17-59) IU/L ALT 46 (<50) IU/L Alkaline Phosphatase 76 (38-126) U/L Total Protein 8.4 H (6.3-8.2) g/dL Albumin 4.8 (3.5-5.0) g/dL Globulin 3.6 (1.7-4.1) g/dL Albumin/Globulin Ratio 1.3 (1.0-2.8) Ethyl Alcohol 155 H ( - 10) mg/dL Imaging Data Extremity x-ray #1: Radiologist's Impressoin: [address] [address] XRay Report Signed Patient: Gold Alaniz MR#: [id number] : 1960 Acct:[id number] Age/Sex: 64 / M Date of Service: 10/29/24 Loc: ED Accession Number: [id number] Procedure: XR knee LT 3V Ordering Provider: Craig Thomas MD PROCEDURE: XR KNEE LT 3V INDICATIONS: Pain/injury TECHNIQUE: 3 views of the knee were acquired. COMPARISON: [facility], CR, XR KNEE 3 VIEWS BILATERAL, 09/21/2022, 11:15. FINDINGS: Bones: No fractures or dislocations. No suspicious bony lesions. Tiny osteophytes of the patella and central knee Soft tissues: No joint effusion. No suspicious soft tissue calcifications. IMPRESSION: No acute bony abnormality or significant effusion. Tiny osteophytes consistent with mild osteoarthrosis. Dictated by: Craig Hernandez M.D. on 10/29/2024 at 8:24 Approved by: Craig Hernandez M.D. on 10/29/2024 at 8:26 [facility] Narrative Medical decision making narrative: Patient here for alcohol withdrawal shakes tremors. No seizure or hallucinations or altered mental status. Last alcohol consumption 2-1/2 hours ago. Patient drinks a 5th of whiskey a day. He is trying to stop drinking. Complains of left knee pain. 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 Has had pain and swelling since then. No nausea or vomiting. Patient is very tremulous. Patient is cooperative. After history and exam, [facility] protocol order set, CBC CMP alcohol level, x-ray left knee, likely admit, EKG [facility] Medical records reviewed: No recent visit for this complaint Differential considered: Includes but not limited to alcohol withdrawal delirium tremens knee contusion strain sprain fracture Lab Test results independently reviewed as above. Pertinent findings: WBC 8.5 hemoglobin 13.4 sodium 141 potassium 3.8 BUN 29 creatinine 0.98 glucose 154 total bilirubin 3.0 AST 97 ALT 46 Independently reviewed EKG sinus tachycardia PVC is noted. Right bundle-branch block. Rate 110. Imaging studies independently reviewed: X-ray left knee no acute finding Consultations: 9:[address] Garcia, who will admit patient. Re-evaluations: 9:30 a.m.. Patient doing better CIWA score of 21. He does agree for admission. X-ray reviewed with him. No acute finding. Likely from poor, struck likely strained his knee. Discussion: Appropriate for admission for alcohol withdrawal. [place] protocol has been started. Diagnosis: Alcohol withdrawal/knee strain Discharge Plan Departure Patient Disposition: Admitted As Inpatient Clinical Impression: Alcohol withdrawal Qualifiers: Complication of substance-induced condition: uncomplicated Qualified Code(s): F 10.930 - Alcohol use, unspecified with withdrawal, uncomplicated Strain of left knee Qualifiers: Encounter type: initial encounter Qualified Code(s): S86.912A - Strain of unspecified muscle(s) and tendon(s) at lower leg level, left leg, initial encounter Admit Date/Time: 10/29/24 09:40 Admit Provider: Bennie Garcia V
--- NOTE | 2024-10-29 08:41 | EKG_ITS ---
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
[2024-10-29] MEDS: LORazepam 2 MG/ML INJ IV ×5 (08:55→21:07)
[2024-10-29] MEDS: ONDANSETRON 4 MG/2 ML INJ IV ×2 (08:58→19:44)
[2024-10-29 09:03] LABS: Add Manual Diff / Slide Review NO; Basophils Absolute Auto 0 /uL (0-100); Basophils Percent Auto 0.4 % (0-2); Eosinophils Absolute Auto 0 /uL (0-450); Eosinophils Percent Auto 0.3 % (2-4); Hematocrit 38.1 % (41-53); Hemoglobin 13.4 g/dL (13.5-17.5); Lymphocytes Absolute Auto 1500 /uL (1100-4500); Lymphocytes Percent Auto 17.9 % (25-40); Mean Corpuscular HGB Conc 35.2 % (30-36); Mean Corpuscular Hemoglobin 31.4 PG (26-34); Mean Corpuscular Volume 89.3 fL (80-100); Monocytes Absolute Auto 800 /uL (0-900); Monocytes Percent Auto 8.9 % (3-14); Neutrophils Absolute Auto 6200 /uL (1500-7000); Neutrophils Percent Auto 72.5 % (50-75); Platelet Count 97 X10^3/uL (150-400); Red Blood Cell Count 4.27 X10^6/uL (4.5-5.9); Red Cell Distribution Width 16.7 % (11.6-14.8); White Blood Cell Count 8.5 X10^3/uL (4.5-11.0)
[2024-10-29 09:10] LABS: Alanine Aminotransferase 46 IU/L (<50); Albumin 4.8 g/dL (3.5-5.0); Albumin Globulin Ratio 1.3 (1.0-2.8); Alkaline Phosphatase 76 U/L (38-126); Aspartate Aminotransferase 97 IU/L (17-59); BUN Creatinine Ratio 29.6 (6-22); Blood Urea Nitrogen 29 mg/dL (9-20); Calcium 9.5 mg/dL (8.4-10.2); Carbon Dioxide 16 mmol/L (22-32); Chloride 104 mmol/L (98-107); Estimated Glomerular Filt Rate > 60 mL/min (>60); Ethanol (ETOH) 155 mg/dL; Globulin 3.6 g/dL (1.7-4.1); Glucose 154 mg/dL (80-110); HEMOLYSIS < 15 (0-50); Potassium 3.8 mmol/L (3.4-5.1); Sodium 141 mmol/L (137-145); Total Protein 8.4 g/dL (6.3-8.2)
[2024-10-29 09:11] LABS: Magnesium 1.9 mg/dL (1.6-2.3)
[2024-10-29] MEDS: FOLIC ACID 1 MG TABLET PO (09:18)
[2024-10-29] MEDS: MULTIVITAMIN 1 TABLET 1 TAB PO (09:18)
[2024-10-29] MEDS: PHENobarbital 65 MG/ML VIAL 260 MG IV (09:18)
[2024-10-29] MEDS: THIAMINE 100 MG TABLET PO (09:18)
[2024-10-29] MEDS: SODIUM CHLORIDE 0.9% 1,000 ML 1000 ML IV (09:32)
--- NOTE | 2024-10-29 09:34 | PC.NURSE ---
Pt sitting up in bed. Wakes easily to sound. Pt reports that he is feeling nauseated. Discussed plan of care, understands.
--- NOTE | 2024-10-29 10:57 | P.HP_ITS ---
History of Present Illness History of Present Illness Date Patient Seen: 10/29/24 Time Patient Seen: 12:36 Chief complaint: LT knee pain; serious alcohol withdrawl Narrative: 64-year-old man presently without primary care provider states that he decided stopped drinking today after a longstanding history of a 5th of whiskey daily, with his last consumption this morning. He fell a few days ago working on his truck and injured his left knee, also noting chest pain from the fall. He was found to be tremulous in the emergency department and started on phenobarbital and lorazepam intravenously. After arrival to the medical floor he is interviewed and calm, denying anxiety at this point, in noting moderate left knee pain. He states a history of alcohol withdrawal hospitalization in the past on more than 1 occasion, typically up to 4-5 days in the hospital. [facility] Medical History Alcohol abuse Social History household members: none Smoking Status: Never smoker alcohol intake: current Meds Home Medications and Allergies Allergies Allergy/AdvReac Type Severity Reaction Status Date / Time caffeine [CAFFEINE] Allergy Unknown RASH, FEVER Verified 10/29/24 11:37 codeine [CODEINE] Allergy Unknown RASH Verified 10/29/24 11:37 Review of Systems Review of Systems ROS: Yes All systems reviewed with the patient and are negative except as otherwise documented Exam Vital Signs (past 8 hours): - 10/29/24 08:10 10/29/24 08:22 10/29/24 08:30 Temperature 98.4 F Pulse Rate 120 H 104 H 109 H Respiratory Rate 24 14 Blood Pressure 196/110 H Pulse Oximetry 99 96 Oxygen Delivery Method Room Air Room Air Oxygen Flow Rate 10/29/24 08:33 10/29/24 08:33 10/29/24 09:00 Temperature Pulse Rate 104 H Respiratory Rate 24 Blood Pressure 130/91 H 153/85 H Pulse Oximetry 94 Oxygen Delivery Method Oxygen Flow Rate 10/29/24 09:00 10/29/24 09:30 10/29/24 09:30 Temperature Pulse Rate 98 H 93 H Respiratory Rate 23 24 Blood Pressure 153/83 H Pulse Oximetry 89 L 93 Oxygen Delivery Method Nasal Cannula Nasal Cannula Oxygen Flow Rate 2 10/29/24 10:00 10/29/24 10:00 Temperature Pulse Rate 87 Respiratory Rate 22 Blood Pressure 161/84 H Pulse Oximetry 95 Oxygen Delivery Method Nasal Cannula Oxygen Flow Rate Oxygen Delivery Method Nasal Cannula Oxygen Flow Rate 2 Narrative Exam Narrative: GENERAL: This is a well-nourished, well-developed patient, in no apparent distress, mild somnolent though arousable. HEAD: Atraumatic. Normocephalic. No temporal or scalp tenderness. EYES: Pupils equal round and reactive. Extraocular motions intact. No scleral icterus. No injection or drainage. ENT: Mucous membranes pink and moist. NECK: Trachea midline. No JVD, bruits or lymphadenopathy. Supple, nontender, no meningeal signs. CARDIOVASCULAR: Regular rate and rhythm without murmurs, gallops, or rubs. RESPIRATORY: Clear to auscultation. GASTROINTESTINAL: Abdomen soft, non-tender, nondistended. EXTREMITIES: No clubbing, cyanosis, or edema. MUSCULOSKELETAL: Left with decreased ROM with swelling and effusion, no warmth or erythema. Multiple abrasions of both legs. Left costosternal junction tenderness to palpation. BACK: Nontender without deformity or crepitance. No flank tenderness. NEUROLOGIC: Alert, oriented, speech fluent, full upper and lower motor strength, no focal deficits evident. DERMATOLOGIC: No rashes or skin lesions. Objective ECG Impression: Sinus tachycardia with frequent and consecutive premature ventricular complexes versus NSVT at 110bpm Right bundle branch block Imaging Left knee xray 10/29/2024:: Radiologist's impression: No acute bony abnormality or significant effusion. Tiny osteophytes consistent with mild osteoarthrosis. Labs 10/29/24 08:47 10/29/24 08:47 Labs: Laboratory Results - last 24 hr 10/29/24 08:47 WBC 8.5 RBC 4.27 L Hgb 13.4 L Hct 38.1 L MCV 89.3 MCH 31.4 MCHC 35.2 RDW 16.7 H Plt Count 97 L Neut % (Auto) 72.5 Lymph % (Auto) 17.9 L [place] % (Auto) 8.9 Eos % (Auto) 0.3 L Baso % (Auto) 0.4 Neut # (Auto) 6200 Lymph # (Auto) 1500 [place] # (Auto) 800 Eos # (Auto) 0 Baso # (Auto) 0 Sodium 141 Potassium 3.8 Chloride 104 Carbon Dioxide 16 L BUN 29 H Creatinine 0.98 Estimated GFR > 60 BUN/Creatinine Ratio 29.6 H Glucose 154 H Calcium 9.5 Magnesium 1.9 Total Bilirubin 3.0 H AST 97 H ALT 46 Alkaline Phosphatase 76 Total Protein 8.4 H Albumin 4.8 Globulin 3.6 Albumin/Globulin Ratio 1.3 Ethyl Alcohol 155 H Assessment & Plan Assessment & Plan narrative: 1. Acute alcohol withdrawal syndrome due to abrupt cessation chronic alcohol use. He demonstrates active withdrawal and will be treated with phenobarbital and benzodiazepines, thiamine and folate. Monitor on CIWA protocol. 2. Left knee contusion/strain. Rest, ice and analgesia as needed. DVT prophylaxis: SCDs, avoid anticoagulants given recent the trauma, potential fall risk Code status: Full code. His daughter Bigg is his surrogate decision maker. Quality MIPS - Admit I confirm the patient?s Advance Care Plan is present, Code status is documented, Surrogate decision maker is in patient?s record [If Yes, STOP here]: Yes [facility] - Meds 'Current medications' to include all prescriptions, [id number] products, herbals, cannabis/cannabidiol products, and vitamin/mineral/dietary (nutritional) supplements. I have utilized all available resources to obtain, update, or review the patient?s current medications. [If Yes, STOP here]: Yes [facility] Licensed Direct Entry Midwife Document charge(s): No Charge Codes Initial inpatient/observation care: [id number]
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
--- NOTE | 2024-10-29 11:48 | PC.NURSE ---
When patient arrived to ER, left knee swollen and bruised. brusing on his left knee and lateral leg. . pt has scabs and bruising over his right leg. some bruising noted on the back. all bruising at various stages of healing. Dr. Thomas at bedside during assessment.
--- NOTE | 2024-10-29 12:12 | PC.ADMIT ---
[facility] Admission Note: Admitted from the ED via stretcher. Patient able to ambulate to new room bed with assistance. No medications infusing. A/O x4. CIWA 13, notable for severe tremors and severe headache. States left knee is pain, denied medication. States desire to quit drinking alcohol and has attempted to quit several times. The patient,Gold Alaniz,64 y/o, was given written information regarding hospital policies, unit procedures and contact persons. Patient's smoking status: Never smoker. Vital Signs - 8 hr 10/29/24 08:10 10/29/24 08:22 10/29/24 08:30 Temperature 98.4 F Pulse Rate 120 H 104 H 109 H Respiratory Rate 24 14 Blood Pressure 196/110 H Pulse Oximetry 99 96 Oxygen Delivery Method Room Air Room Air Oxygen Flow Rate 10/29/24 08:33 10/29/24 08:33 10/29/24 09:00 Temperature Pulse Rate 104 H Respiratory Rate 24 Blood Pressure 130/91 H 153/85 H Pulse Oximetry 94 Oxygen Delivery Method Oxygen Flow Rate 10/29/24 09:00 10/29/24 09:30 10/29/24 09:30 Temperature Pulse Rate 98 H 93 H Respiratory Rate 23 24 Blood Pressure 153/83 H Pulse Oximetry 89 L 93 Oxygen Delivery Method Nasal Cannula Nasal Cannula Oxygen Flow Rate 2 10/29/24 09:46 10/29/24 10:00 10/29/24 10:00 Temperature Pulse Rate 87 Respiratory Rate 22 Blood Pressure 161/84 H Pulse Oximetry 95 Oxygen Delivery Method Room Air Nasal Cannula Oxygen Flow Rate 10/29/24 10:30 10/29/24 10:30 10/29/24 11:00 Temperature Pulse Rate 87 88 Respiratory Rate 20 22 Blood Pressure 171/89 H Pulse Oximetry 98 96 Oxygen Delivery Method Nasal Cannula Oxygen Flow Rate 10/29/24 11:30 10/29/24 11:54 Temperature Pulse Rate 88 89 Respiratory Rate 22 17 Blood Pressure 174/87 H Pulse Oximetry 95 Oxygen Delivery Method Oxygen Flow Rate
[2024-10-29 13:24] LABS: MRSA (Nasal) PCR NOT DETECTED (Not Detect)
[2024-10-29] MEDS: dilTIAZem 25 MG/5 ML SDV 10 MG IV (14:18)
--- NOTE | 2024-10-29 14:25 | PC.NURSE ---
Addendum entered by Gian Nieslen R.N. 10/29/24 17:36: Per Dr Garcia, start Esmolol drip in conjunction with Diltiazem drip, titrate down Diltiazem as needed for rate control. Esmolol loading dose administered at 500mcg/kg over 1 minute and initial dose started at 50mcg/kg/min both per protocol and okayed by Dr Garcia. Addendum entered by Gian Nielsen R.N. 10/29/24 14:28: Clarifying previous note. Dr Garcia ordered both Diltiazem administrations, drip started at 5mg/hr per protocol. Original Note: Patient's HR 170's, A Fib RVR, Dr Garcia notified. 10mg IV Diltiazem once and Diltiazem drip ordered per protocol.
[2024-10-29] MEDS: dilTIAZem 125 MG in SODIUM CHLORIDE 0.9% 100 ML IV (14:34)
[2024-10-29] MEDS: ESMOLOL 2.5 GM/250 ML IV.SOLN IV (17:33)
[2024-10-29] MEDS: PHENobarbital 65 MG/ML VIAL IV (17:38)
[2024-10-29] MEDS: HYDROMORPHONE 0.5 MG INJ IV (19:44)
[2024-10-29] MEDS: dilTIAZem 125 MG in SODIUM CHLORIDE 0.9% 100 ML 15 MG IV (22:19)
[2024-10-30] VITALS (78 sets, daily range): BP systolic 76–153; BP diastolic 51–120; PULSE 93–158; RESP 16–34; TEMP 35.9–37.2; O2SAT 86–100
[2024-10-30] MEDS: LORazepam 2 MG/ML INJ IV ×6 (00:20→22:47)
[2024-10-30] MEDS: PHENobarbital 65 MG/ML VIAL IV ×3 (00:56→16:51)
[2024-10-30] MEDS: ESMOLOL 2.5 GM/250 ML IV.SOLN IV (01:21)
[2024-10-30 01:56] LABS: UR Morphine/Opiate cutoff 300 Negative (Negative); Ur Creatinine Normal (Normal); Ur Specific Gravity Normal (Normal); Urine Amphetamines Negative (Negative); Urine Cocaine Negative (Negative); Urine MDMA Negative (Negative); Urine Methamphetamines Negative (Negative); Urine Phencyclidine Negative (Negative); Urine Tetrahydrocannabinol Negative (Negative); Urine pH Normal (Normal)
[2024-10-30 01:57] LABS: Urine Barbiturates Positive (Negative); Urine Benzodiazepines Positive (Negative); Urine Methadone Negative (Negative); Urine Oxycodone Negative (Negative); Urine Tricyclic Antidepressant Negative (Negative)
[2024-10-30] MEDS: SODIUM CHLORIDE 0.9% FLUSH 10 ML IV ×2 (04:00→20:43)
[2024-10-30 05:21] LABS: Add Manual Diff / Slide Review NO; Basophils Absolute Auto 0 /uL (0-100); Basophils Percent Auto 0.3 % (0-2); Eosinophils Absolute Auto 0 /uL (0-450); Eosinophils Percent Auto 0.5 % (2-4); Hematocrit 35.2 % (41-53); Hemoglobin 12.5 g/dL (13.5-17.5); Lymphocytes Absolute Auto 700 /uL (1100-4500); Lymphocytes Percent Auto 9.3 % (25-40); Mean Corpuscular HGB Conc 35.4 % (30-36); Mean Corpuscular Hemoglobin 31.8 PG (26-34); Mean Corpuscular Volume 89.8 fL (80-100); Monocytes Absolute Auto 500 /uL (0-900); Neutrophils Absolute Auto 6100 /uL (1500-7000); Neutrophils Percent Auto 82.9 % (50-75); Platelet Count 62 X10^3/uL (150-400); Red Blood Cell Count 3.93 X10^6/uL (4.5-5.9); Red Cell Distribution Width 16.9 % (11.6-14.8); White Blood Cell Count 7.3 X10^3/uL (4.5-11.0)
[2024-10-30 05:29] LABS: Alanine Aminotransferase 41 IU/L (<50); Albumin 4.2 g/dL (3.5-5.0); Albumin Globulin Ratio 1.4 (1.0-2.8); Alkaline Phosphatase 66 U/L (38-126); Aspartate Aminotransferase 73 IU/L (17-59); BUN Creatinine Ratio 37.3 (6-22); Bilirubin Total 4.3 mg/dL (0.2-1.3); Blood Urea Nitrogen 28 mg/dL (9-20); Calcium 9.2 mg/dL (8.4-10.2); Carbon Dioxide 26 mmol/L (22-32); Chloride 103 mmol/L (98-107); Estimated Glomerular Filt Rate > 60 mL/min (>60); Globulin 3.1 g/dL (1.7-4.1); Glucose 129 mg/dL (80-110); HEMOLYSIS < 15 (0-50); Potassium 4.3 mmol/L (3.4-5.1); Sodium 138 mmol/L (137-145); Total Protein 7.3 g/dL (6.3-8.2)
[2024-10-30 05:47] LABS: Magnesium 1.9 mg/dL (1.6-2.3)
[2024-10-30] MEDS: ACETAMINOPHEN 325 MG TABLET 650 MG PO ×2 (07:33→22:47)
--- NOTE | 2024-10-30 08:07 | PM.PN.IH.1 ---
Subjective Subjective Date Patient Seen: 10/30/24 Time Patient Seen: 07:38 Interval history: Narrative: 64-year-old man presently without primary care provider states that he decided stopped drinking today after a longstanding history of a 5th of whiskey daily, with his last consumption this morning. He fell a few days ago working on his truck and injured his left knee, also noting chest pain from the fall. He was found to be tremulous in the emergency department and started on phenobarbital and lorazepam intravenously. After arrival to the medical floor he is interviewed and calm, denying anxiety at this point, in noting moderate left knee pain. He states a history of alcohol withdrawal hospitalization in the past on more than 1 occasion, typically up to 4-5 days in the hospital. Subjective: The patient developed atrial fibrillation with rapid ventricular response on 10/29. He was started on diltiazem infusion though had no response, with rates controlled in the 110s to 120s on esmolol infusion. He denies chest pain or shortness of breath or prior history of arrhythmia. He appears calm and stable followed on [place] protocol. Exam Vital Signs (past 8 hours): - 10/30/24 00:16 10/30/24 00:16 10/30/24 00:30 Temperature Pulse Rate 113 H 112 H Respiratory Rate 23 25 H Blood Pressure 139/77 Pulse Oximetry 95 94 Oxygen Delivery Method Oxygen Flow Rate 10/30/24 00:30 10/30/24 00:40 10/30/24 00:46 Temperature Pulse Rate 123 H Respiratory Rate 22 Blood Pressure 150/69 H 135/94 H 135/94 H Pulse Oximetry Oxygen Delivery Method Oxygen Flow Rate 10/30/24 00:46 10/30/24 00:57 10/30/24 01:00 Temperature 96.7 F L Pulse Rate 123 H 122 H Respiratory Rate 26 H 18 Blood Pressure Pulse Oximetry 94 97 Oxygen Delivery Method Oxygen Flow Rate 10/30/24 01:01 10/30/24 01:01 10/30/24 01:30 Temperature Pulse Rate 102 H 104 H Respiratory Rate 19 21 Blood Pressure 117/64 Pulse Oximetry 97 98 Oxygen Delivery Method Oxygen Flow Rate 1 10/30/24 01:31 10/30/24 01:31 10/30/24 01:51 Temperature Pulse Rate 109 H Respiratory Rate 20 Blood Pressure 93/71 121/62 Pulse Oximetry 97 Oxygen Delivery Method Oxygen Flow Rate 1 10/30/24 01:51 10/30/24 02:00 10/30/24 02:00 Temperature Pulse Rate 93 H 98 H Respiratory Rate 21 19 Blood Pressure 107/60 Pulse Oximetry 98 98 Oxygen Delivery Method Oxygen Flow Rate 1 10/30/24 02:30 10/30/24 02:30 10/30/24 03:00 Temperature Pulse Rate 124 H 121 H Respiratory Rate 19 19 Blood Pressure 115/79 Pulse Oximetry 97 96 Oxygen Delivery Method Oxygen Flow Rate 10/30/24 03:00 10/30/24 03:30 10/30/24 03:30 Temperature Pulse Rate 97 H Respiratory Rate 23 Blood Pressure 112/77 102/69 Pulse Oximetry 99 Oxygen Delivery Method Oxygen Flow Rate 10/30/24 04:00 10/30/24 04:00 10/30/24 04:00 Temperature 98.3 F Pulse Rate 97 H 123 H Respiratory Rate 23 20 Blood Pressure 102/69 Pulse Oximetry 99 100 Oxygen Delivery Method Nasal Cannula Oxygen Flow Rate 1 1 10/30/24 04:01 10/30/24 04:01 10/30/24 04:20 Temperature Pulse Rate 122 H 120 H Respiratory Rate 19 19 Blood Pressure 128/73 Pulse Oximetry 99 Oxygen Delivery Method Oxygen Flow Rate 1 10/30/24 04:30 10/30/24 04:30 10/30/24 05:00 Temperature Pulse Rate 119 H 98 H Respiratory Rate 20 19 Blood Pressure 128/87 Pulse Oximetry 98 97 Oxygen Delivery Method Oxygen Flow Rate 1 1 10/30/24 05:00 10/30/24 05:30 10/30/24 05:30 Temperature Pulse Rate 111 H Respiratory Rate 21 Blood Pressure 108/78 120/71 Pulse Oximetry 98 Oxygen Delivery Method Oxygen Flow Rate 1 10/30/24 06:00 10/30/24 06:00 Temperature Pulse Rate 112 H Respiratory Rate 20 Blood Pressure 109/68 Pulse Oximetry 99 Oxygen Delivery Method Oxygen Flow Rate 1 Oxygen Delivery Method Nasal Cannula Oxygen Flow Rate 1 Narrative Exam Narrative: GENERAL: This is a well-nourished, well-developed patient, in no apparent distress, mild somnolent though arousable. EYES: Pupils equal round and reactive. Extraocular motions intact. No scleral icterus. No injection or drainage. ENT: Mucous membranes pink and moist. NECK: Trachea midline. No JVD, bruits or lymphadenopathy. Supple, nontender, no meningeal signs. CARDIOVASCULAR: Irregular tachycardic rhythm with grade 2/6 systolic murmur across precordium. RESPIRATORY: Clear to auscultation. GASTROINTESTINAL: Abdomen soft, non-tender, nondistended. EXTREMITIES: No clubbing, cyanosis, or edema. MUSCULOSKELETAL: Left knee with decreased ROM with swelling and effusion, no warmth or erythema. Multiple abrasions of both legs. Left costosternal junction tenderness to palpation. NEUROLOGIC: Alert, oriented, speech fluent, full upper and lower motor strength, no focal deficits evident. DERMATOLOGIC: No rashes or skin lesions except lower extremity abrasions. Objective ECG Impression: Sinus tachycardia with frequent and consecutive premature ventricular complexes versus NSVT at 110bpm Right bundle branch block 10/29 Imaging Left knee xray 10/29/2024:: Radiologist's impression: No acute bony abnormality or significant effusion. Tiny osteophytes consistent with mild osteoarthrosis. Labs 10/30/24 04:16 10/30/24 04:16 Labs: Laboratory Results - last 24 hr 10/29/24 10/29/24 10/30/24 08:47 12:00 01:44 WBC 8.5 RBC 4.27 L Hgb 13.4 L Hct 38.1 L MCV 89.3 MCH 31.4 MCHC 35.2 RDW 16.7 H Plt Count 97 L Neut % (Auto) 72.5 Lymph % (Auto) 17.9 L [place] % (Auto) 8.9 Eos % (Auto) 0.3 L Baso % (Auto) 0.4 Neut # (Auto) 6200 Lymph # (Auto) 1500 [place] # (Auto) 800 Eos # (Auto) 0 Baso # (Auto) 0 Sodium 141 Potassium 3.8 Chloride 104 Carbon Dioxide 16 L BUN 29 H Creatinine 0.98 Estimated GFR > 60 BUN/Creatinine Ratio 29.6 H Glucose 154 H Calcium 9.5 Magnesium 1.9 Total Bilirubin 3.0 H AST 97 H ALT 46 Alkaline Phosphatase 76 Total Protein 8.4 H Albumin 4.8 Globulin 3.6 Albumin/Globulin Ratio 1.3 Nasal Screen MRSA (PCR) Not detected U Opiates 300ng/mL cut Negative Ur Oxycodone Screen Negative Urine Methadone Screen Negative Ur Barbiturates Screen Positive H U Tricyclic Antidepress Negative Ur Phencyclidine Scrn Negative Ur Amphetamines Screen Negative U Methamphetamines Scrn Negative Ur MDMA Scrn (Ecstasy) Negative U Benzodiazepines Scrn Positive H Urine Cocaine Screen Negative U Marijuana (THC) Screen Negative Urine pH Normal Urine Specific [place] Normal Ethyl Alcohol 155 H Ur Creatinine Normal 10/30/24 04:16 WBC 7.3 RBC 3.93 L Hgb 12.5 L Hct 35.2 L MCV 89.8 MCH 31.8 MCHC 35.4 RDW 16.9 H Plt Count 62 L Neut % (Auto) 82.9 H Lymph % (Auto) 9.3 L [place] % (Auto) 7.0 Eos % (Auto) 0.5 L Baso % (Auto) 0.3 Neut # (Auto) 6100 Lymph # (Auto) 700 L [place] # (Auto) 500 Eos # (Auto) 0 Baso # (Auto) 0 Sodium 138 Potassium 4.3 Chloride 103 Carbon Dioxide 26 BUN 28 H Creatinine 0.75 Estimated GFR > 60 BUN/Creatinine Ratio 37.3 H Glucose 129 H Calcium 9.2 Magnesium 1.9 Total Bilirubin 4.3 H AST 73 H ALT 41 Alkaline Phosphatase 66 Total Protein 7.3 Albumin 4.2 Globulin 3.1 Albumin/Globulin Ratio 1.4 Nasal Screen MRSA (PCR) U Opiates 300ng/mL cut Ur Oxycodone Screen Urine Methadone Screen Ur Barbiturates Screen U Tricyclic Antidepress Ur Phencyclidine Scrn Ur Amphetamines Screen U Methamphetamines Scrn Ur MDMA Scrn (Ecstasy) U Benzodiazepines Scrn Urine Cocaine Screen U Marijuana (THC) Screen Urine pH Urine Specific [place] Ethyl Alcohol Ur Creatinine [facility] Medical History Alcohol abuse Social History household members: none Smoking Status: Never smoker alcohol intake: current Assessment & Plan Assessment & Plan narrative: 1. Acute alcohol withdrawal syndrome due to abrupt cessation chronic alcohol use. He demonstrates active withdrawal and will be treated with phenobarbital and benzodiazepines, thiamine and folate. Monitor on CIWA protocol. 2. Left knee contusion/strain. Rest, ice and analgesia as needed. 3. Atrial fibrillation with rapid ventricular response. Continue diltiazem and esmolol infusions. Check TSH, troponin, EKG, chest x-ray and echocardiogram. Follow in ICU setting. DVT prophylaxis: SCDs, avoid anticoagulants given recent the trauma, potential fall risk Code status: Full code. His daughter Tamar is his surrogate decision maker. 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
--- NOTE | 2024-10-30 08:11 | DI.RAD.S_ITS ---
PROCEDURE: XR CHEST 1V INDICATIONS: afib TECHNIQUE: One view of the chest was acquired. COMPARISON: [facility], CR, XR CHEST 1 VIEW, 09/23/2022, 16:02. FINDINGS: Surgical changes and devices: None. Lungs and pleura: Left basilar subsegmental atelectasis. No pleural effusions or pneumothorax. Mediastinum: Mediastinal contours appear normal. Heart size is normal. Bones and chest wall: No suspicious bony lesions. Severe left glenohumeral osteoarthritis. Overlying soft tissues appear unremarkable. IMPRESSION: Left basilar subsegmental atelectasis. Otherwise, no acute cardiothoracic process. Dictated by: Jermaine Rhodes M.D. on 10/30/2024 at 8:45 Approved by: Jermaine Rhodes M.D. on 10/30/2024 at 8:46
--- NOTE | 2024-10-30 08:15 | EKG_ITS ---
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
[2024-10-30 09:06] LABS: Troponin I 0.104 ng/mL (0.01-0.034)
--- NOTE | 2024-10-30 09:08 | DI.ECHO.S_ITS ---
[facility]---------+ [facility] : : [address] : : [place] : : [id number] : : Phone: [phone] Echocardiogram Report + + :Name: DEYANIRA CHAMBERS Study Date: 10/30/2024 Height: 31 in : :Hospital ReadingLocation: Weight: 511 lb : : Gender: Male BSA: 1.7 m2 : :: 1960 Age: 64 yrs BP: 113/55 mmHg: :Reason For Study: ETOH : :Ordering Physician: RONNY, : :ALBERT Performed By: Akila Curtis : :Referring: ALBERT JEFFERSON : + + Interpretation Summary The patient was in atrial fibrillation with heart rates between 80-100 bpm during the exam. The study quality was technically difficult. Left ventricular wall thickness is mildly increased. The ejection fraction is estimated to be 60-65%. Diastolic function could not be accurately assessed due to atrial fibrillation. The left atrium is severely dilated. Borderline right ventricular enlargement. Right ventricular systolic function is mildly reduced. There is some degree of aortic stenosis however assessment is difficult due to tachycardia and atrial fibrillation (suspect severe). This study should be repeated when the heart rate and/or rhythm are under control. There is mild aortic regurgitation. The right ventricular systolic pressure is estimated to be at least 28 mmHg based on an estimated right atrial pressure of 3 mm Hg. Procedure: A two-dimensional transthoracic echocardiogram with color flow and Doppler was performed. Comparison is made with the echocardiogram of . The study quality was technically difficult. The patient was in atrial fibrillation with heart rates between 80-100 bpm during the exam. Left Ventricle: The left ventricle is normal in size. Left ventricular wall thickness is mildly increased. The ejection fraction is estimated to be 60- 65%. Diastolic function could not be accurately assessed due to atrial fibrillation. Right Ventricle: Borderline right ventricular enlargement. Right ventricular systolic function is mildly reduced. Atria: The left atrium is severely dilated. Right atrial size is normal. The interatrial septum grossly appears intact with no obvious evidence for an atrial septal defect. Mitral Valve: The mitral valve leaflets appear mildly thickened, but open well. There is no mitral regurgitation noted. Aortic Valve: The aortic valve is moderately calcified. The calculated aortic valve area is 1.4 cm2. The peak aortic velocity is 3.2 m/sec. The peak aortic velocity on the previous exam was 2.8 m/sec. There is some degree of aortic stenosis however assessment is difficult due to tachycardia and atrial fibrillation (suspect severe). This study should be repeated when the heart rate and/or rhythm are under control. There is mild aortic regurgitation. Tricuspid Valve: The tricuspid valve leaflets are thin and pliable. There is a trace or physiologic amount of tricuspid regurgitation. The right ventricular systolic pressure is estimated to be at least 28 mmHg based on an estimated right atrial pressure of 3 mm Hg. Pulmonic Valve: The pulmonic valve is not well visualized. Great Vessels: The aortic root is normal size. The ascending aorta could not be visualized. The aortic arch is normal in size. The IVC is of normal diameter and collapses greater than 50% with a sniff. This suggests a low right atrial pressure of 3 mm Hg. Pericardium/ Pleura There is no pericardial effusion. There is no pleural effusion. MMode/2D Measurements & Calculations LVIDd: 4.8 cm LVOT diam: 2.5 cm LVIDs: 3.1 cm Ao root diam: 3.9 cm FS: 35.3 % Ao Arch Diam (Prox Trans): 3.2 cm IVSd: 1.2 cm LVPWd: 1.1 cm LV ware. diameter/BSA (cm/m^2): 2.8 LV sys. diameter/BSA (cm/m^2): 1.8 LA A2 area: 27.0 cm2 RA long axis: 5.7 cm LA A4 area: 32.1 cm2 RA area: 20.9 cm2 LA length (vol): 6.6 cm RA vol: 65.1 ml LA vol: 110.3 ml RA : 37.7 ml/m2 LA vol index: 63.9 ml/m2 IVC diam: 2.1 cm RVD1 (basal): 4.1 cm TAPSE: 2.2 cm Doppler Measurements & Calculations Ao V2 max: 321.3 cm/sec LVOT Max Dante: 86.4 cm/sec Ao V2 mean: 237.0 cm/sec LV V1 max P.0 mmHg Ao max P.0 mmHg LV V1 VTI: 17.7 cm Ao mean P.5 mmHg ERIC(I,D): 1.4 cm2 Ao V2 VTI: 60.7 cm ERIC(V,D): 1.3 cm2 sev ratio: 0.29 ERIC indexed to BSA (cm^2/m^2): 0.83 MVA(VTI): 4.9 cm2 TR max dante: 251.6 cm/sec TR max P.3 mmHg MV V2 mean: 64.2 cm/sec SV(LVOT): 86.6 ml MV mean P.9 mmHg MV V2 VTI: 17.6 cm Reading Physician:05:28 PM
[2024-10-30] MEDS: dilTIAZem 125 MG in SODIUM CHLORIDE 0.9% 100 ML 10 MG IV (09:24)
[2024-10-30] MEDS: AMIODARONE 360 MG/200 ML PIGGYBACK 33.33 MG IV (10:17)
--- NOTE | 2024-10-30 15:34 | CM.DPC ---
DCP Cont: Per MD, pt continues to have withdrawal symptoms and heart rate issues and medicated for withdrawals. MD anticipated another 2-3 days before stable enough for discharge. Per RN, pt recently with dry heaves/tremors/nausea/high heart rate and feeling quite poorly and recommend discharge discussion when pt more medically appropriate to fully participate in discussion. Pt confirmed he is agreeable with staff keeping his local Dtr updated and RN kindly updated Dtr when she called today. Plan: SW to follow closely for bedside discussion with pt regarding ETOH tx at d/c when more medically stable to participate. Nely Gomez MSW
[2024-10-30] MEDS: dexmedeTOMIDine in 0.9 % NaCL 400 MCG/100 ML PLAST..BAG 10.55 MCG IV (15:43)
[2024-10-30] MEDS: AMIODARONE 360 MG/200 ML PIGGYBACK 16.7 MG IV (16:24)
[2024-10-30 16:36] LABS: Troponin I 0.066 ng/mL (0.01-0.034)
[2024-10-30] MEDS: ONDANSETRON 4 MG/2 ML INJ IV (20:43)
[2024-10-31] VITALS (60 sets, daily range): BP systolic 85–163; BP diastolic 55–107; PULSE 65–150; RESP 18–30; TEMP 36.1–36.7; O2SAT 89–100
[2024-10-31] MEDS: PHENobarbital 65 MG/ML VIAL IV ×3 (00:55→16:56)
[2024-10-31] MEDS: LORazepam 2 MG/ML INJ IV ×4 (03:29→21:15)
[2024-10-31] MEDS: AMIODARONE 360 MG/200 ML PIGGYBACK 16.7 MG IV ×2 (03:29→05:03)
[2024-10-31] MEDS: ACETAMINOPHEN 325 MG TABLET 650 MG PO ×3 (04:47→18:24)
[2024-10-31] MEDS: HYDROMORPHONE 0.5 MG INJ IV ×3 (05:02→21:59)
[2024-10-31 05:10] LABS: Add Manual Diff / Slide Review NO; Basophils Absolute Auto 0 /uL (0-100); Basophils Percent Auto 0.5 % (0-2); Eosinophils Absolute Auto 200 /uL (0-450); Eosinophils Percent Auto 3.2 % (2-4); Hematocrit 33.2 % (41-53); Hemoglobin 11.8 g/dL (13.5-17.5); Lymphocytes Absolute Auto 800 /uL (1100-4500); Lymphocytes Percent Auto 16.3 % (25-40); Mean Corpuscular HGB Conc 35.6 % (30-36); Mean Corpuscular Hemoglobin 32.2 PG (26-34); Mean Corpuscular Volume 90.6 fL (80-100); Monocytes Absolute Auto 300 /uL (0-900); Monocytes Percent Auto 5.9 % (3-14); Neutrophils Absolute Auto 3900 /uL (1500-7000); Neutrophils Percent Auto 74.1 % (50-75); Platelet Count 68 X10^3/uL (150-400); Red Blood Cell Count 3.67 X10^6/uL (4.5-5.9); Red Cell Distribution Width 16.8 % (11.6-14.8); White Blood Cell Count 5.2 X10^3/uL (4.5-11.0)
[2024-10-31 05:30] LABS: Alanine Aminotransferase 40 IU/L (<50); Albumin 3.8 g/dL (3.5-5.0); Albumin Globulin Ratio 1.3 (1.0-2.8); Alkaline Phosphatase 62 U/L (38-126); Aspartate Aminotransferase 65 IU/L (17-59); Bilirubin Total 2.2 mg/dL (0.2-1.3); Blood Urea Nitrogen 30 mg/dL (9-20); Carbon Dioxide 26 mmol/L (22-32); Chloride 103 mmol/L (98-107); Estimated Glomerular Filt Rate > 60 mL/min (>60); Globulin 2.9 g/dL (1.7-4.1); Glucose 121 mg/dL (80-110); HEMOLYSIS < 15 (0-50); Potassium 3.4 mmol/L (3.4-5.1); Sodium 136 mmol/L (137-145); Total Protein 6.7 g/dL (6.3-8.2)
[2024-10-31 05:40] LABS: Troponin I 0.043 ng/mL (0.01-0.034)
[2024-10-31 06:46] LABS: Thyroid Stimulating Hormone 3.13 uIU/mL (0.47-4.68)
[2024-10-31] MEDS: THIAMINE 100 MG TABLET PO (08:25)
[2024-10-31] MEDS: MULTIVITAMIN 1 TABLET 1 TAB PO (08:25)
[2024-10-31] MEDS: ONDANSETRON 4 MG/2 ML INJ IV ×2 (08:25→21:19)
[2024-10-31] MEDS: FOLIC ACID 1 MG TABLET PO (08:25)
[2024-10-31] MEDS: SODIUM CHLORIDE 0.9% FLUSH 10 ML IV ×2 (08:26→20:33)
--- NOTE | 2024-10-31 09:37 | DI.US.S_ITS ---
PROCEDURE: US ABDOMEN LIMITED INDICATIONS: ELEVATED BILIRUBIN TECHNIQUE: Real-time scanning was performed of the abdominal and retroperitoneal organs, with image documentation. COMPARISON: [facility], CT, CT CHEST ABDOMEN PELVIS WITH CONTRAST, 09/21/2022, 10:55. [facility], US, US ABDOMEN COMPLETE, 02/19/2018, 23:37. FINDINGS: Liver: Liver is normal in size and coarse in echotexture. The parenchyma is hyperechoic. The contour is macronodular. Gallbladder: Punctate gallstones. No abnormal wall thickening. No pericholecystic fluid. Negative sonographic Prajapati sign. Biliary ducts: Intrahepatic bile ducts are non-dilated. Extrahepatic bile duct caliber measures 6 mm. Normal is 6-7 mm or less in diameter, or 10 mm or less post-cholecystectomy. Pancreas: Obscured due to overlying bowel gas per Miscellaneous: No free abdominal fluid. IMPRESSION: 1. Cirrhotic morphology of the liver. No focal mass lesion in the field of view. 2. Cholelithiasis without sonographic evidence of acute cholecystitis. Dictated by: Jermaine Rhodes M.D. on 10/31/2024 at 10:50 Approved by: Jermaine Rhodes M.D. on 10/31/2024 at 10:54
[2024-10-31] MEDS: LIDOCAINE 5% PATCH 1 EACH TOP (09:46)
[2024-10-31] MEDS: dilTIAZem 25 MG/5 ML SDV 10 MG IV (09:46)
[2024-10-31] MEDS: POTASSIUM CHLORIDE 20 MEQ TAB 40 MEQ PO (11:26)
[2024-10-31] MEDS: dexmedeTOMIDine in 0.9 % NaCL 400 MCG/100 ML PLAST..BAG 5.275 MCG IV (11:28)
--- NOTE | 2024-10-31 14:55 | P.PN_ITS ---
Subjective Subjective Interval history: 64 M with PMH of alcohol use with likely cirrhosis, moderate aortic stenosis (last TTE 1 yr ago) admitted for alcohol withdrawal. Currently on precedex along with continued benzos/CIWA protocol and phenobarb. Also admitted with afib with RVR which is persistent today. Seen after dose of benzos this morning, falls asleep easily. He denies any pain, chest discomfort, nausea, vomiting this morning. Exam Vital Signs (past 8 hours): - 10/31/24 07:01 10/31/24 07:03 10/31/24 07:03 Pulse Rate 134 H 134 H Respiratory Rate 22 Blood Pressure 133/105 H Pulse Oximetry 90 L 95 Oxygen Delivery Method 10/31/24 07:30 10/31/24 07:31 10/31/24 07:31 Pulse Rate 133 H 128 H Respiratory Rate 19 23 Blood Pressure 116/63 Pulse Oximetry 93 95 Oxygen Delivery Method 10/31/24 08:00 10/31/24 08:00 10/31/24 08:00 Pulse Rate 65 129 H Respiratory Rate 19 20 Blood Pressure 114/71 Pulse Oximetry 89 L 92 Oxygen Delivery Method Room Air 10/31/24 08:00 10/31/24 08:30 10/31/24 08:30 Pulse Rate 133 H Respiratory Rate 25 H Blood Pressure 114/71 117/70 Pulse Oximetry 94 Oxygen Delivery Method 10/31/24 08:45 10/31/24 09:00 10/31/24 09:00 Pulse Rate 127 H 125 H Respiratory Rate 20 19 Blood Pressure 117/70 114/61 Pulse Oximetry 92 Oxygen Delivery Method 10/31/24 09:30 10/31/24 09:31 10/31/24 09:31 Pulse Rate 123 H 124 H Respiratory Rate 21 21 Blood Pressure 135/84 Pulse Oximetry 93 94 Oxygen Delivery Method 10/31/24 09:46 10/31/24 10:00 10/31/24 10:00 Pulse Rate 120 H 107 H Respiratory Rate 21 Blood Pressure 135/84 103/71 Pulse Oximetry 95 Oxygen Delivery Method 10/31/24 10:30 10/31/24 10:30 10/31/24 11:00 Pulse Rate 115 H 117 H Respiratory Rate 30 H 22 Blood Pressure 101/66 Pulse Oximetry 96 94 Oxygen Delivery Method 10/31/24 11:02 10/31/24 11:02 10/31/24 11:30 Pulse Rate 124 H Respiratory Rate 27 H Blood Pressure 128/74 139/107 H Pulse Oximetry 96 Oxygen Delivery Method 10/31/24 11:30 10/31/24 12:00 10/31/24 12:00 Pulse Rate 118 H Respiratory Rate 25 H Blood Pressure 119/66 Pulse Oximetry 97 Oxygen Delivery Method Room Air 10/31/24 12:00 10/31/24 12:30 10/31/24 12:30 Pulse Rate 118 H 113 H Respiratory Rate 19 18 Blood Pressure 119/66 95/67 Pulse Oximetry 96 93 Oxygen Delivery Method 10/31/24 13:00 10/31/24 13:00 10/31/24 13:30 Pulse Rate 117 H Respiratory Rate 21 Blood Pressure 105/73 105/73 104/62 Pulse Oximetry 93 Oxygen Delivery Method 10/31/24 13:30 10/31/24 14:00 10/31/24 14:00 Pulse Rate 115 H 109 H Respiratory Rate 24 24 Blood Pressure 87/60 L Pulse Oximetry 96 93 Oxygen Delivery Method Oxygen Delivery Method Room Air Oxygen Flow Rate 0 Narrative Exam Narrative: GENERAL: This is a well-nourished, well-developed patient, in no apparent distress, mild somnolent though arousable. EYES: Pupils equal round and reactive. Extraocular motions intact. No scleral icterus. No injection or drainage. ENT: Mucous membranes pink and moist. NECK: Trachea midline. No JVD, bruits or lymphadenopathy. Supple, nontender, no meningeal signs. CARDIOVASCULAR: Irregular tachycardic rhythm with grade 3/6 harsh systolic murmur across precordium. RESPIRATORY: Clear to auscultation. GASTROINTESTINAL: Abdomen soft, non-tender, nondistended. EXTREMITIES: No clubbing, cyanosis, or edema. MUSCULOSKELETAL: Left knee with decreased ROM with swelling and effusion, no warmth or erythema. Multiple abrasions of both legs. Left costosternal junction tenderness to palpation. NEUROLOGIC: Alert, oriented, speech fluent, full upper and lower motor strength, no focal deficits evident. DERMATOLOGIC: No rashes or skin lesions except lower extremity abrasions. Objective Labs 10/31/24 04:30 10/31/24 04:30 Labs: Laboratory Results - last 24 hr 10/30/24 10/31/24 16:00 04:30 WBC 5.2 RBC 3.67 L Hgb 11.8 L Hct 33.2 L MCV 90.6 MCH 32.2 MCHC 35.6 RDW 16.8 H Plt Count 68 L Neut % (Auto) 74.1 Lymph % (Auto) 16.3 L [place] % (Auto) 5.9 Eos % (Auto) 3.2 Baso % (Auto) 0.5 Neut # (Auto) 3900 Lymph # (Auto) 800 L [place] # (Auto) 300 Eos # (Auto) 200 Baso # (Auto) 0 Sodium 136 L Potassium 3.4 Chloride 103 Carbon Dioxide 26 BUN 30 H Creatinine 0.91 Estimated GFR > 60 BUN/Creatinine Ratio 33.0 H Glucose 121 H Calcium 10.0 Total Bilirubin 2.2 H AST 65 H ALT 40 Alkaline Phosphatase 62 Troponin I 0.066 H 0.043 H Total Protein 6.7 Albumin 3.8 Globulin 2.9 Albumin/Globulin Ratio 1.3 TSH 3.13 PFSH Medical History Alcohol abuse Social History household members: none Smoking Status: Never smoker alcohol intake: current Assessment & Plan Assessment & Plan narrative: 1. Acute alcohol withdrawal syndrome due to abrupt cessation chronic alcohol use. - start librium 25 mg TID, may need increase but will attempt to get off of precedex. - continue precedex infusion for now, ativan per [facility] protocol, also has prn phenobarb ordered. - MVI/folate/thiamine - has multiple prior admissions for EtOH withdrawal per outside chart review (mostly near [place], [place]) - RUQ US unremarkable 2. Left knee contusion/strain. Rest, ice and analgesia as needed. 3. Atrial fibrillation with rapid ventricular response. - discussed with cardiology, TTE showing RVR unable to assess aortic stenosis severity. Recommended uptitration of beta devika at this time. SBP in the 120s, occasionally lower. Ideally with improved rate control would have improved output and increased BP in response. - of note there is a discordance between pulse rate on pulse oximeter / exam and lunchroom monitor, due to non-conducted electrical beats. Pulse in the 60s-80s on pulse ox, 120s on lunchroom monitor. Minimal change with esmolol but also noted hypotension with esmolol. - start metoprolol 25 mg q6, may need to increase dosing. - amiodarone was not particularly sucessful, stopped with alcohol use and cirrhosis / liver issues for now. - if unable to further titrate, re-consult with cardiology - cardiology recommended initiation of anticoagulation, will wait until h/h stabilizes at this time given decline since admit from 13.4 to 11.8. 4. Moderate (poss. severe) Aortic stenosis, present on admission - repeat TTE recommended after adequate rate control achieved to assess severity of aortic stenosis - previous TTE last year ((09/2023) showed moderate with valve area 1.5. 5. Chronic alcoholic cirrhosis - seen on US, Tbili slightly improved today. - continue to follow CMP. 6. Myocardial injury - likely troponin elevation due to above RVR, improving this morning. DVT prophylaxis: SCDs, avoid anticoagulants given recent the trauma, potential fall risk Code status: Full code. His daughter Tamar is his surrogate decision maker. I spent 45 minutes providing critical care management this patient. This excludes time spent in performing separately billed procedures. Time-Based Coding :: [TOTAL MINUTES] spent with patient and on the chart (including review of chart, obtaining history, exam, reviewing outside data, placing orders, documenting exam and treatment plan, and counseling patient) on [DATE].
[2024-10-31] MEDS: chlordiazePOXIDE 25 MG CAPSULE PO ×2 (15:05→20:29)
[2024-10-31] MEDS: METOPROLOL IR 25 MG TABLET PO ×2 (15:05→20:32)
--- NOTE | 2024-10-31 21:22 | EKG_ITS ---
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
[2024-11-01] VITALS (21 sets, daily range): BP systolic 79–133; BP diastolic 50–79; PULSE 87–128; RESP 15–31; TEMP 36.3–36.6; O2SAT 91–99
[2024-11-01] MEDS: PHENobarbital 65 MG/ML VIAL IV ×2 (00:38→08:40)
[2024-11-01] MEDS: HYDROMORPHONE 0.5 MG INJ IV (00:38)
[2024-11-01 04:43] LABS: Add Manual Diff / Slide Review NO; Basophils Absolute Auto 0 /uL (0-100); Basophils Percent Auto 0.5 % (0-2); Eosinophils Absolute Auto 200 /uL (0-450); Eosinophils Percent Auto 3.8 % (2-4); Hematocrit 31.8 % (41-53); Hemoglobin 11.1 g/dL (13.5-17.5); Lymphocytes Absolute Auto 1100 /uL (1100-4500); Lymphocytes Percent Auto 21.1 % (25-40); Mean Corpuscular Hemoglobin 31.8 PG (26-34); Mean Corpuscular Volume 90.8 fL (80-100); Monocytes Absolute Auto 300 /uL (0-900); Neutrophils Absolute Auto 3700 /uL (1500-7000); Neutrophils Percent Auto 68.6 % (50-75); Platelet Count 72 X10^3/uL (150-400); Red Blood Cell Count 3.51 X10^6/uL (4.5-5.9); Red Cell Distribution Width 16.9 % (11.6-14.8); White Blood Cell Count 5.4 X10^3/uL (4.5-11.0)
[2024-11-01 05:39] LABS: Alanine Aminotransferase 41 IU/L (<50); Albumin 3.4 g/dL (3.5-5.0); Albumin Globulin Ratio 1.2 (1.0-2.8); Alkaline Phosphatase 64 U/L (38-126); Aspartate Aminotransferase 56 IU/L (17-59); BUN Creatinine Ratio 29.5 (6-22); Bilirubin Total 1.6 mg/dL (0.2-1.3); Blood Urea Nitrogen 26 mg/dL (9-20); Calcium 8.8 mg/dL (8.4-10.2); Carbon Dioxide 25 mmol/L (22-32); Chloride 101 mmol/L (98-107); Estimated Glomerular Filt Rate > 60 mL/min (>60); Globulin 2.8 g/dL (1.7-4.1); Glucose 98 mg/dL (80-110); HEMOLYSIS < 15 (0-50); Magnesium 1.6 mg/dL (1.6-2.3); Potassium 3.6 mmol/L (3.4-5.1); Sodium 132 mmol/L (137-145); Total Protein 6.2 g/dL (6.3-8.2)
--- NOTE | 2024-11-01 06:34 | PC.NURSE ---
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
[2024-11-01] MEDS: MAGNESIUM CHLORIDE 64 MG TABLET 128 MG PO (08:40)
[2024-11-01] MEDS: METOPROLOL IR 25 MG TABLET PO ×2 (08:40→14:29)
[2024-11-01] MEDS: FOLIC ACID 1 MG TABLET PO (08:40)
[2024-11-01] MEDS: MULTIVITAMIN 1 TABLET 1 TAB PO (08:40)
[2024-11-01] MEDS: THIAMINE 100 MG TABLET PO (08:40)
[2024-11-01] MEDS: chlordiazePOXIDE 25 MG CAPSULE 50 MG PO ×2 (08:40→14:28)
[2024-11-01] MEDS: PANTOPRAZOLE 40 MG VIAL IV (08:40)
[2024-11-01] MEDS: SODIUM CHLORIDE 0.9% FLUSH 10 ML IV (08:41)
[2024-11-01] MEDS: LIDOCAINE 5% PATCH 1 EACH TOP (08:57)
[2024-11-01] MEDS: ACETAMINOPHEN 325 MG TABLET 650 MG PO ×2 (10:47)
[2024-11-01 11:28] LABS: Troponin I 0.123 ng/mL (0.01-0.034)
--- NOTE | 2024-11-01 12:25 | CM.DPC ---
DCP Cont. Reviewed EMR and team rounds for status updates. Pt is still not in a cognitive status to discuss post-discharge tx options, is experiencing increased troponins, chest pain, and CIWA protocol still needing PRN medication for agitation. Will assess again tomorrow for MARYANA assessment readiness.
--- NOTE | 2024-11-01 13:10 | P.DS_ITS ---
History of Present Illness History of Present Illness Date Patient Seen: 11/01/24 Time Patient Seen: 13:10 Chief complaint: LT knee pain; serious alcohol withdrawl Narrative: Per admitting provider, 64-year-old man presently without primary care provider states that he decided stopped drinking today after a longstanding history of a 5th of whiskey daily, with his last consumption this morning. He fell a few days ago working on his truck and injured his left knee, also noting chest pain from the fall. He was found to be tremulous in the emergency department and started on phenobarbital and lorazepam intravenously. After arrival to the medical floor he is interviewed and calm, denying anxiety at this point, in noting moderate left knee pain. He states a history of alcohol withdrawal hospitalization in the past on more than 1 occasion, typically up to 4-5 days in the hospital. Discharge Providers Provider Date of admission: 10/29/24 09:40 Discharge Date: 11/01/24 Primary care physician: VICKIE Vera Consults: 10/29/24 08:39 Consult to [facility] [place] - [employer] Business [employer] Developer Stat Comment: [employer] Developer Consult needed for:: Substance abuse Discharge provider: Trenton Lin DO Summary Hospital Course Discharge Diagnosis: Please see hospital course by problem list noted below Hospital Course: # Acute alcohol withdrawal syndrome due to abrupt cessation chronic alcohol use. - initially treated with phenobarbital pushes, ativan per CIWA protocol, eventually moved to precedex in addition for continued elevated CIWA scores. - started librium 25 mg TID on 10/31, increased to 50 mg 11/01. Able to wean off of precedex at this time. Generally improving and stable on librium. - MVI/folate/thiamine was started. - has multiple prior admissions for EtOH withdrawal per outside chart review (mostly near [place], [place]) - RUQ US unremarkable except for known cirrhosis - Tbili peak at 4.3, improved to 1.6 today. # Atrial fibrillation with rapid ventricular response, new diagnosis. - discussed with cardiology multiple times, TTE with his RVR unable to assess aortic stenosis severity. Recommended uptitration of beta devika initially given withdrawal but this maxed out at 25 mg metoprolol tartarate q6h currently. SBP now in the 90s-100s currently. Reviewed outside ER visits and admissions without note of prior atrial fibrillation. - of note there is a discordance between pulse rate on pulse oximeter / exam and cardiac catheterization technologist, due to non-conducted electrical beats. Pulse in the 60s-80s on pulse ox, 120s on cardiac catheterization technologist. Minimal change with esmolol but also noted hypotension with esmolol. He has a loud murmur on exam. - amiodarone was not particularly sucessful after IV load, stopped after completion of IV infusion with alcohol use and cirrhosis / liver issues for now. - cardiology recommended initiation of anticoagulation, currently until h/h stabilizes at this time given decline since admit from 13.4 to 11.1. Started PPI 11/01. - Over the course of his stay, diltiazem, metoprolol, amiodarone was attempted for rate control with minimal success. Generally rates improved but still consistent tachycardia in the 110s-120s today, also with elevated troponin again and intermittent chest pressure. Disucussed with [facility] cardiology, recommended transfer for cardiology consultatation and probable TERRIE with cardioversion, not available at [facility]. Discussed with cardiology at [facility] agreed with recommendation for transfer. Patient accepted by hospitalist at [facility] Dr. Oneil. #Moderate (poss. severe) Aortic stenosis, present on admission - repeat TTE recommended after adequate rate control achieved to assess severity of aortic stenosis. Peak flow on TTE here was noted to be 3.4 also consistent with moderate disease. EF was 60%. - previous TTE last year ((09/2023) showed moderate with valve area 1.5 (noted in a discharge summary in [facility]) #Chronic alcoholic cirrhosis - seen on US, Tbili slightly improved today. - continue to follow CMP. # Myocardial injury - likely troponin elevation due to above RVR, improved initially from 0.1 to 0.04. Repeated 11/01 given recurrent chest discomfort and was 0.123. Recommend continued following at OSH. Next troponin (q6) would be at 17:00. - discussed with cardiology, given anemia downtrend, and cirrhosis, anticoagulation with heparin not recommended at this time. # Acute anemia, normocytic, not present on admission. - slow downtrend in hg from 13.4 on admission to 11.1 today. No melena, hematochezia, or hematemesis. - started PPI IV BID 11/01 given chest discomfort and continued downtrend in Hg # Left knee contusion/strain. Rest, ice and analgesia as needed. DVT prophylaxis: SCDs, avoid anticoagulants given recent the trauma, potential fall risk Code status: Full code. His daughter Tamar is his surrogate decision maker. Time Spent with Patient Time spent: Greater than 30 minutes Exam Vital Signs (past 8 hours): - 11/01/24 06:00 11/01/24 06:01 11/01/24 06:01 Pulse Rate 102 H 100 H Respiratory Rate 23 15 Blood Pressure 96/57 L Pulse Oximetry 97 96 Oxygen Delivery Method Oxygen Flow Rate 0 11/01/24 07:00 11/01/24 07:00 11/01/24 08:00 Pulse Rate 98 H 119 H Respiratory Rate 19 29 H Blood Pressure 113/71 Pulse Oximetry 98 99 Oxygen Delivery Method Oxygen Flow Rate 11/01/24 08:00 11/01/24 08:00 11/01/24 09:00 Pulse Rate 120 H Respiratory Rate 25 H Blood Pressure 129/79 Pulse Oximetry Oxygen Delivery Method Room Air Oxygen Flow Rate 11/01/24 09:01 11/01/24 09:01 11/01/24 09:09 Pulse Rate 117 H 114 H Respiratory Rate 23 18 Blood Pressure 85/62 L Pulse Oximetry Oxygen Delivery Method Oxygen Flow Rate 11/01/24 09:09 11/01/24 10:00 11/01/24 10:00 Pulse Rate 98 H Respiratory Rate 19 Blood Pressure 102/67 117/55 L 117/55 L Pulse Oximetry 97 Oxygen Delivery Method Oxygen Flow Rate 11/01/24 11:00 11/01/24 11:00 11/01/24 12:00 Pulse Rate 101 H 107 H Respiratory Rate 19 22 Blood Pressure 104/65 104/65 101/55 L Pulse Oximetry 97 99 Oxygen Delivery Method Oxygen Flow Rate 11/01/24 12:00 Pulse Rate Respiratory Rate Blood Pressure Pulse Oximetry Oxygen Delivery Method Room Air Oxygen Flow Rate Oxygen Delivery Method Room Air Oxygen Flow Rate 0 Narrative Exam Narrative: GENERAL: This is a well-nourished, well-developed patient, in no apparent distress, mild somnolent though arousable. EYES: Pupils equal round and reactive. Extraocular motions intact. No scleral icterus. No injection or drainage. ENT: Mucous membranes pink and moist. NECK: Trachea midline. No JVD, bruits or lymphadenopathy. Supple, nontender, no meningeal signs. CARDIOVASCULAR: Irregular tachycardic rhythm with grade 3/6 harsh systolic murmur across precordium. RESPIRATORY: Clear to auscultation. GASTROINTESTINAL: Abdomen soft, non-tender, nondistended. EXTREMITIES: No clubbing, cyanosis, or edema. MUSCULOSKELETAL: Left knee with decreased ROM with swelling and effusion, no warmth or erythema. Multiple abrasions of both legs. Left costosternal junction tenderness to palpation. NEUROLOGIC: Alert, oriented, speech fluent, full upper and lower motor strength, no focal deficits evident. DERMATOLOGIC: No rashes or skin lesions except lower extremity abrasions. Objective Labs 11/01/24 04:10 11/01/24 04:10 Labs: Laboratory Results - last 24 hr 11/01/24 11/01/24 04:10 10:52 WBC 5.4 RBC 3.51 L Hgb 11.1 L Hct 31.8 L MCV 90.8 MCH 31.8 MCHC 35.0 RDW 16.9 H Plt Count 72 L Neut % (Auto) 68.6 Lymph % (Auto) 21.1 L [place] % (Auto) 6.0 Eos % (Auto) 3.8 Baso % (Auto) 0.5 Neut # (Auto) 3700 Lymph # (Auto) 1100 [place] # (Auto) 300 Eos # (Auto) 200 Baso # (Auto) 0 Sodium 132 L Potassium 3.6 Chloride 101 Carbon Dioxide 25 BUN 26 H Creatinine 0.88 Estimated GFR > 60 BUN/Creatinine Ratio 29.5 H Glucose 98 Calcium 8.8 Magnesium 1.6 Total Bilirubin 1.6 H AST 56 ALT 41 Alkaline Phosphatase 64 Troponin I 0.123 H* Total Protein 6.2 L Albumin 3.4 L Globulin 2.8 Albumin/Globulin Ratio 1.2 [facility] Medical History Alcohol abuse Social History household members: none Smoking Status: Never smoker alcohol intake: current Discharge Plan Discharge Plan Patient Disposition: [facility] Hospital Provider Discharge Comment: See discharge summary. Discharge Health Status Multidrug resistant organism: No MDRO Precautions: [place] Diet/Activity/Treatments Diet: Diet as Tolerated and Regular Liquid consistency: Normal/Thin Food texture: Regular Activity: No restrictions, as tolerated Discharge Data Primary Care Provider: Milli Boateng
--- NOTE | 2024-11-01 15:19 | PC.NURSE ---
Report given to Katerine at [facility] [phone]. Patient picked up by [facility] for transport. Patient sent with all his belongings, including his cell phone, wallet, boots and clothes. Patient reached out to his daughter Bigg and friend Akila to notify them of his transfer.
== END 2024-11-01 14:45 | disposition short-term general hospital (02) | DRG 897 ==
LOC: ED 09:37 → AC 09:41 → ICU 10:15
PROVIDERS: Internal Medicine; Admitting Provider Internal Medicine; Emergency Provider Emergency Medicine; Family Provider Nurse Practitioner Gerontology; PCP Nurse Practitioner Gerontology; Referring Provider Emergency Medicine; Visit Provider Internal Medicine
DX: F10.939 Alcohol use, unspecified with withdrawal, unspecified (principal); I5A Non-ischemic myocardial injury (non-traumatic); S86.912A Strain of unspecified muscle(s) and tendon(s) at lower leg level, left leg, initial encounter; I48.91 Unspecified atrial fibrillation; Y90.6 Blood alcohol level of 120-199 mg/100 ml; I35.0 Nonrheumatic aortic (valve) stenosis; K70.30 Alcoholic cirrhosis of liver without ascites; D64.9 Anemia, unspecified; W19.XXXA Unspecified fall, initial encounter
CPT/HCPCS: 36415; 71045; 73562; 76705; 80053; 80305; 80320; 82962; 83735; 84443; 84484; 85025; 87797; 93005; 93306; 96361; 96374; 99284; 99285; J0282; J1171; J2060; J2405; J2470; J2560

== ENCOUNTER 2024-11-06 07:02 | Emergency (ER) | payer MEDICARE, SELFPAY ==
[2024-10-29 09:46] VITALS: BMI 26.3
[2024-11-06] VITALS (8 sets, daily range): BP systolic 117–137; BP diastolic 57–74; PULSE 55–61; RESP 18; TEMP 36.4; O2SAT 94–100; BMI 27.0
--- NOTE | 2024-11-06 07:32 | DI.RAD.S_ITS ---
PROCEDURE: XR KNEE LT 3V INDICATIONS: Red and swollen TECHNIQUE: 3 views of the knee were acquired. COMPARISON: [facility], CR, XR KNEE LT 3V, 10/29/2024, 8:41. FINDINGS: Bones: No fractures or dislocations. Minimal early osteoarthritic changes redemonstrated. No suspicious bony lesions. Soft tissues: No joint effusion. No suspicious soft tissue calcifications. IMPRESSION: No acute osseous abnormality. If pain persists with conservative management, consider repeat x-ray in 10-14 days or cross-sectional imaging. Dictated by: Kaveh Tarango M.D. on 11/06/2024 at 8:04 Approved by: Kaveh Tarango M.D. on 11/06/2024 at 8:05
--- NOTE | 2024-11-06 08:40 | ED_ITS ---
HPI - Extremity Problem General Chief complaint: Extremity Problem,Nontraumatic Stated complaint: Left knee pain x 5 days, fever in leg Time Seen by Provider: 11/06/24 08:40 Source: patient, RN notes reviewed and old records reviewed Mode of arrival: Ambulatory Limitations: no limitations History of Present Illness HPI Narrative: 64-year-old male history of chronic alcohol use admitted on 10/29 for alcohol withdrawal symptom, aortic stenosis, alcoholic cirrhosis AFib RVR which was newly diagnosed and was transferred for TERRIE and cardioversion to [facility]. At that time patient's ER and discharge summary from the both note left knee changes. Patient notes he has had persistent pain in that left knee since. He does not initially recall any trauma but states he was had bruising he does not know exactly when that started if it was pre or post hospitalization. He notes that he did have a large tool box that he was dragging behind him which may have banged in his legs several times. He denies fevers. No chest pain, no shortness of breath since his hospitalization no nausea or vomiting. No issues with bowel movements or urination. He states that his catheterization was in his right arm. He states he did not have any catheterization in the left. Patient denies any flank pain or bruising of his abdomen or back. He states he can walk but it is uncomfortable in the knee. He was states it is also uncomfortable to flex extend but can do so. He notes that is a little bit more swollen. He feels like the leg is little bit warmer. Has not seen any redness. He states he was discharged on Plavix as well as several other medications for his heart he was supposed to follow up for his aortic valve for surgery. He states no tobacco normally, no IV or injection drugs, has not had any alcohol since discharge. Denies any allergies to medications. Related Data Home Medications Medication Instructions Recorded Confirmed No Known Home Medications 10/29/24 10/29/24 Allergies Allergy/AdvReac Type Severity Reaction Status Date / Time caffeine [CAFFEINE] Allergy Unknown RASH, FEVER Verified 10/29/24 11:37 codeine [CODEINE] Allergy Unknown RASH Verified 10/29/24 11:37 Review of Systems Review of Systems ROS Unobtainable: All systems reviewed & are unremarkable except as noted in HPI and below Patient History Medical History Alcohol abuse Social History household members: none Smoking Status: Never smoker alcohol intake: current Smoking Status: Never smoker alcohol intake frequency: 3 or more drinks per day Alcohol type: hard liquor Exam Narrative Exam Narrative: GENERAL: Alert and oriented x three, male in mild distress HEENT: Head normocephalic, atraumatic, EOMI, pupils reactive, face symmetric, moist mucous membranes NECK: Supple, full range of motion CARDIOVASCULAR: Regular rate and rhythm without murmurs, rubs or gallops. No JVD. Patient was slight edema left compared to right. Nonpitting. RESPIRATORY: Breath sounds equal bilaterally, no wheezes rales or rhonchi. No tachypnea accessory muscle use ABDOMEN: Soft, nontender. Normoactive bowel sounds all 4 quadrants. No guarding or rebound, rigidity, no mass : No CVA tenderness EXTREMITIES: Normal range of motion, no clubbing or edema. Neurovascularly intact NEUROLOGICAL: Cranial nerves II through XII grossly intact. Moving all extremities SKIN: Warm, dry, no petechiae, no rashes, patient has ecchymosis running from his left hip down the left leg towards the knee, no palpable hematoma on exam there is a scant amount over his calf. This is on the lateral side. Patient has no bony tenderness on examination throughout the entire left leg. There was no warmth. Left leg is slightly more swollen than the right. He does have some greenish discoloration consistent with ecchymosis as well. Negative anterior and posterior drawer, negative valgus varus. He was full range of motion without any discomfort. There is no erythema. Patient does not have any effusion appreciated on exam over the knee. He was positive pulses bilaterally. Does have some abrasions on bilateral lower extremities on the left foot several small abrasions and on the right lower extremity has a abrasions on his anterior peña and foot as well these do not have any warmth erythema or drainage. Initial Vital Signs Initial Vital Signs: Vital Signs Temperature 97.6 F 11/06/24 07:21 Pulse Rate 61 11/06/24 07:21 Respiratory Rate 18 11/06/24 07:21 Blood Pressure 126/62 11/06/24 07:21 Pulse Oximetry 99 11/06/24 07:21 Oxygen Delivery Method Room Air 11/06/24 07:21 Course Orders Ordered: Discontinued Medications Ibuprofen (Ibuprofen 400 Mg Tablet) 800 mg PO NOW ONE Stop: 11/06/24 08:56 Last Admin: 11/06/24 09:17 Dose: 800 mg Documented By: STEFANIE Vital Signs Vital signs: Vital Signs - 8 hr 11/06/24 10:30 11/06/24 10:30 Pulse Rate 55 L Blood Pressure 137/69 Pulse Oximetry 100 MDM - Extremity (Nontraumatic) Lab Data 11/06/24 09:10 11/06/24 09:10 Labs: Lab Results 11/06/24 Range/Units 09:10 WBC 4.8 (4.5-11.0) X10^3/uL RBC 3.44 L (4.5-5.9) X10^6/uL Hgb 10.9 L (13.5-17.5) g/dL Hct 31.9 L (41-53) % MCV 92.6 (80-100) fL MCH 31.5 (26-34) PG MCHC 34.1 (30-36) % RDW 17.3 H (11.6-14.8) % Plt Count 152 (150-400) X10^3/uL Neut % (Auto) 58.0 (50-75) % Lymph % (Auto) 19.8 L (25-40) % [place] % (Auto) 17.2 H (3-14) % Eos % (Auto) 4.1 H (2-4) % Baso % (Auto) 0.9 (0-2) % Neut # (Auto) 2800 (2953-0253) /uL Lymph # (Auto) 900 L (7305-4103) /uL [place] # (Auto) 800 (0-900) /uL Eos # (Auto) 200 (0-450) /uL Baso # (Auto) 0 (0-100) /uL PT 13.7 H (9.4-12.5) SECONDS INR 1.2 (0.9-1.3) APTT 38 H (25.1-36.5) SECONDS Sodium 138 (137-145) mmol/L Potassium 4.4 (3.4-5.1) mmol/L Chloride 107 (98-107) mmol/L Carbon Dioxide 24 (22-32) mmol/L BUN 18 (9-20) mg/dL Creatinine 1.06 (0.66-1.25) mg/dL Estimated GFR > 60 (>60) mL/min BUN/Creatinine Ratio 17.0 (6-22) Glucose 109 H (70-99) mg/dL Calcium 8.7 (8.4-10.2) mg/dL Total Bilirubin 0.9 (0.2-1.3) mg/dL AST 35 (17-59) IU/L ALT 31 (<50) IU/L Alkaline Phosphatase 81 (38-126) U/L Total Protein 6.8 (6.3-8.2) g/dL Albumin 4.0 (3.5-5.0) g/dL Globulin 2.8 (1.7-4.1) g/dL Albumin/Globulin Ratio 1.4 (1.0-2.8) MDM Narrative Medical decision making narrative: 64-year-old male comes in with complaint of left knee pain he states it was hurting he was seen here in the department and admitted for alcohol withdrawal Dinora found to be in AFib RVR, had positive troponins and was transferred had cardiac stents, TERRIE patient states he was discharged home with plan for follow up for surgery for aortic stenosis on Plavix. Patient unclear if he ever had any trauma to his leg he does note he possibly had some he was unsure of the bruising started pre or post hospitalization. It is not noted in his last ED visit but they do note that he had abrasions and skin changes and discomfort in the knee. We will attempt to obtain records. Evaluation does not appear to be infected does have quite a bit of bruising we will obtain labs although patient notes that he did not have catheterization on that left leg he was hemodynamically stable at this time. He does not appreciate expanding bruising over time. Patient's workup shows that his white count had decreased during his hospitalization but has stayed stable since the . He does not have any changes consistent with infection. Just had a TERRIE during his recent hospitalization so likelihood of infectious or source from his valve is unlikely. Has been using does look a little bit older. Left Knee x-ray shows no acute change Labs show white count of 4.8 hemoglobin is 10.9 has decreased over time but was 11.1 on 11/01 so minimal waste/materials exchange specialist the past 5 days this does seem can somewhat consistent with the patient's bruising but I do not suspect acute bleeding currently. Platelets are 152 actually improved from his most recent hospitalization when he was in the 90s to 70s. PTT is 38 INR is 1.2. Chemistries are appropriate creatinine is 1.06 glucose is 109 LFTs are negative. DVT ultrasound he was negative for acute change. Discussed findings with the patient plan for follow up with primary care continue his current medications. Discussed patient's findings, he feels comfortable with discharge is able to ambulate in the department without issue. Discharge Plan Departure Patient Disposition: Home Clinical Impression: Knee pain, left, Multiple ecchymoses of thigh Instructions: DI for Knee Pain Activity Restrictions/Additional Instructions: Follow up for rechecked, your hemoglobin did decrease from your initial presentation on the but has made very minimal changes in the past 5 days. I do not think you have any active bleeding currently. Elevated affected body part to decrease swelling. OK to use ice pack on the affected body part. Use for 15-20 minutes each time, for 5-6x per day. You can wrap your leg with a brace or Bob wrap if you find it is helpful but it was not required. Continue weightbear as tolerated. Please return for fevers, rapidly worsening changes, increasing swelling, increasing redness, new or increasing bruising, worsening pain, inability to weightbear or worsening pain with movement your knee or other new or concerning changes. Prescriptions: No Action No Known Home Medications Referrals: Milli Boateng ARNP [Primary Care Provider] - Stand Alone Forms: Patient Portal/API/Survey
--- NOTE | 2024-11-06 08:55 | DI.US.S_ITS ---
PROCEDURE: US PERIPH VENOUS LOW EXTREM LT INDICATIONS: knee pain, swelling, bruising TECHNIQUE: Real-time imaging, as well as color and pulse Doppler interrogation, were performed of the lower extremity deep veins from the inguinal ligament to the popliteal fossa, with documentation of the visualized calf veins. COMPARISON: None. FINDINGS: The common femoral, femoral, popliteal, and the visualized calf veins are normally compressible, and free of intraluminal thrombus. Color and pulse Doppler demonstrate normal phasic intraluminal flow. There is normal augmentation response to distal compression maneuver. IMPRESSION: No findings of lower extremity deep venous thrombosis. Approved by: Jan Degroot M.D. on 11/06/2024 at 9:15
[2024-11-06] MEDS: IBUPROFEN 400 MG TABLET 800 MG PO (09:17)
--- NOTE | 2024-11-06 09:21 | PC.NURSE ---
Pt has significant bruising from left hip to left knee with slight bruising on left calf. Left knee swollen. Bilateral pedal pulses present. Dr rodgers notified.
[2024-11-06 09:24] LABS: INR 1.2 (0.9-1.3); Prothrombin Time 13.7 SECONDS (9.4-12.5)
[2024-11-06 09:26] LABS: PTT Partial Thromboplastin Tim 38 SECONDS (25.1-36.5)
[2024-11-06 09:32] LABS: Alanine Aminotransferase 31 IU/L (<50); Albumin Globulin Ratio 1.4 (1.0-2.8); Alkaline Phosphatase 81 U/L (38-126); Aspartate Aminotransferase 35 IU/L (17-59); Bilirubin Total 0.9 mg/dL (0.2-1.3); Blood Urea Nitrogen 18 mg/dL (9-20); Calcium 8.7 mg/dL (8.4-10.2); Carbon Dioxide 24 mmol/L (22-32); Chloride 107 mmol/L (98-107); Estimated Glomerular Filt Rate > 60 mL/min (>60); Globulin 2.8 g/dL (1.7-4.1); Glucose 109 mg/dL (70-99); HEMOLYSIS < 15 (0-50); Potassium 4.4 mmol/L (3.4-5.1); Sodium 138 mmol/L (137-145); Total Protein 6.8 g/dL (6.3-8.2)
[2024-11-06 09:39] LABS: Add Manual Diff / Slide Review NO; Basophils Absolute Auto 0 /uL (0-100); Basophils Percent Auto 0.9 % (0-2); Eosinophils Absolute Auto 200 /uL (0-450); Eosinophils Percent Auto 4.1 % (2-4); Hematocrit 31.9 % (41-53); Hemoglobin 10.9 g/dL (13.5-17.5); Lymphocytes Absolute Auto 900 /uL (1100-4500); Lymphocytes Percent Auto 19.8 % (25-40); Mean Corpuscular HGB Conc 34.1 % (30-36); Mean Corpuscular Hemoglobin 31.5 PG (26-34); Mean Corpuscular Volume 92.6 fL (80-100); Monocytes Absolute Auto 800 /uL (0-900); Monocytes Percent Auto 17.2 % (3-14); Neutrophils Absolute Auto 2800 /uL (1500-7000); Platelet Count 152 X10^3/uL (150-400); Red Blood Cell Count 3.44 X10^6/uL (4.5-5.9); Red Cell Distribution Width 17.3 % (11.6-14.8); White Blood Cell Count 4.8 X10^3/uL (4.5-11.0)
== END 2024-11-06 10:53 | disposition home or self-care (01) ==
PROVIDERS: Emergency Provider Emergency Medicine; Family Provider Nurse Practitioner Gerontology; PCP Nurse Practitioner Gerontology
DX: M25.562 Pain in left knee (principal); S70.12XA Contusion of left thigh, initial encounter; I48.91 Unspecified atrial fibrillation; Z79.01 Long term (current) use of anticoagulants; Z95.5 Presence of coronary angioplasty implant and graft
CPT/HCPCS: 36415; 73562; 80053; 85025; 85610; 85730; 93971; 99283; 99284

== ENCOUNTER 2024-12-01 09:15 | Emergency (ER) | payer MEDICARE, SELFPAY ==
[2024-10-29 09:46] VITALS: BMI 26.3
[2024-12-01] VITALS (39 sets, daily range): BP systolic 113–190; BP diastolic 70–109; PULSE 85–156; RESP 0–33; TEMP 36.9; O2SAT 89–100; BMI 25.5
--- NOTE | 2024-12-01 09:21 | DI.RAD.S_ITS ---
PROCEDURE: XR CHEST 1V INDICATIONS: Chest Pain TECHNIQUE: One view of the chest was acquired. COMPARISON: [facility], CR, XR CHEST 1V, 10/30/2024, 8:19. [facility], CR, XR CHEST 1V, 02/19/2018, 23:30. FINDINGS: Surgical changes and devices: None. Lungs and pleura: Lungs are clear. No pleural effusions or pneumothorax. Mediastinum: Mediastinal contours appear normal. Heart size is normal. Bones and chest wall: No suspicious bony lesions. Overlying soft tissues appear unremarkable. IMPRESSION: No acute cardiopulmonary abnormality is seen. Dictated by: Kaveh Tarango M.D. on 12/01/2024 at 10:05 Approved by: Kaveh Tarango M.D. on 12/01/2024 at 10:08
--- NOTE | 2024-12-01 09:21 | EKG_ITS ---
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
[2024-12-01 09:41] LABS: Add Manual Diff / Slide Review NO; Basophils Absolute Auto 100 /uL (0-100); Eosinophils Absolute Auto 0 /uL (0-450); Eosinophils Percent Auto 0.3 % (2-4); Hematocrit 38.1 % (41-53); Hemoglobin 13.2 g/dL (13.5-17.5); Lymphocytes Absolute Auto 1400 /uL (1100-4500); Lymphocytes Percent Auto 15.9 % (25-40); Mean Corpuscular HGB Conc 34.5 % (30-36); Mean Corpuscular Hemoglobin 31.9 PG (26-34); Mean Corpuscular Volume 92.3 fL (80-100); Monocytes Absolute Auto 600 /uL (0-900); Monocytes Percent Auto 6.7 % (3-14); Neutrophils Absolute Auto 6800 /uL (1500-7000); Neutrophils Percent Auto 76.1 % (50-75); Platelet Count 79 X10^3/uL (150-400); Red Blood Cell Count 4.13 X10^6/uL (4.5-5.9); White Blood Cell Count 8.9 X10^3/uL (4.5-11.0)
[2024-12-01 09:47] LABS: INR 1.1 (0.9-1.3); Prothrombin Time 12.1 SECONDS (9.4-12.5)
[2024-12-01 09:49] LABS: PTT Partial Thromboplastin Tim 29 SECONDS (25.1-36.5)
[2024-12-01 09:51] LABS: Ethanol (ETOH) 275 mg/dL (<10)
[2024-12-01 09:52] LABS: Alanine Aminotransferase 167 IU/L (<50); Albumin 4.8 g/dL (3.5-5.0); Albumin Globulin Ratio 1.3 (1.0-2.8); Alkaline Phosphatase 74 U/L (38-126); Aspartate Aminotransferase 221 IU/L (17-59); BUN Creatinine Ratio 22.1 (6-22); Bilirubin Total 2.3 mg/dL (0.2-1.3); Blood Urea Nitrogen 23 mg/dL (9-20); Calcium 8.6 mg/dL (8.4-10.2); Carbon Dioxide 12 mmol/L (22-32); Chloride 101 mmol/L (98-107); Creatine Kinase 1110 U/L (55-170); Estimated Glomerular Filt Rate > 60 mL/min (>60); Globulin 3.6 g/dL (1.7-4.1); Glucose 125 mg/dL (70-99); HEMOLYSIS < 15 (0-50); Lipase 271 U/L (23-300); Magnesium 1.9 mg/dL (1.6-2.3); Sodium 137 mmol/L (137-145); Total Protein 8.4 g/dL (6.3-8.2)
[2024-12-01 10:03] LABS: NT-proBNP (BNP-Adult 18+) 343 pg/mL (<125)
[2024-12-01 10:04] LABS: Troponin I 0.152 ng/mL (0.01-0.034)
[2024-12-01] MEDS: PHENobarbital 65 MG/ML VIAL 130 MG IV ×2 (10:09→11:47)
[2024-12-01] MEDS: PANTOPRAZOLE 40 MG VIAL 80 MG IV (10:09)
--- NOTE | 2024-12-01 11:03 | ED_ITS ---
HPI - Chest Pain General Chief Complaint: Chest Pain Stated Complaint: Chest Pain/Nausea Time Seen by Provider: 12/01/24 09:49 Source: EMS Mode of arrival: EMS History of Present Illness HPI narrative: 64-year-old male with history of coronary artery disease, status post 3 coronary stents placed last month at [facility], also has history of aortic valve problem, awaiting TAVR procedure yet to be scheduled, admits to ongoing alcohol use, had been drinking alcohol in the past, was sober for 2 years, now drinking again for the last month or so, regularly drinking 8-10 oz daily whiskey, last drink earlier today. Complains of left anterior chest discomfort onset 0500, without associated diaphoresis, without associated nausea or vomiting, without radiation to the arm jaw or back. No black or red stools. No vomiting. No injury or trauma or new activities. He has had alcohol withdrawal in the past, can not recall any prior seizures, feels shaky and tremulous as if he is having some alcohol withdrawal. Related Data Home Medications Medication Instructions Recorded Confirmed No Known Home Medications 10/29/24 10/29/24 Allergies Allergy/AdvReac Type Severity Reaction Status Date / Time caffeine [CAFFEINE] Allergy Unknown RASH, FEVER Verified 12/01/24 09:30 codeine [CODEINE] Allergy Unknown RASH Verified 12/01/24 09:30 Patient History Medical History Alcohol abuse Social History household members: none alcohol intake: current alcohol intake frequency: 3 or more drinks per day Alcohol type: hard liquor Exam Narrative Exam Narrative: GENERAL: Well-developed patient, in mild distress. Anxious appearing. HEAD: Atraumatic. Normocephalic. EYES: Pupils equal round and reactive. Extraocular motions intact. No scleral icterus. No injection or drainage. ENT: Nose without bleeding, purulent drainage. Throat without erythema, tonsillar hypertrophy or exudate. Airway patent. NECK: Trachea midline. Non tender CARDIOVASCULAR: Regular rate and rhythm without murmurs, gallops, or rubs. RESPIRATORY: Clear to auscultation. Breath sounds equal bilaterally. No wheezes, rales, or rhonchi. GASTROINTESTINAL: Abdomen soft, non-tender, nondistended. EXTREMITIES: No edema or joint tenderness. BACK: Nontender without deformity or crepitance. No flank tenderness. NEURO: AOx3. Motor functions grossly nonfocal. Tremulousness noted. SKIN: No rash or erythema of visible areas Initial Vital Signs Initial Vital Signs: Vital Signs Pulse Rate 101 H 12/01/24 09:19 Respiratory Rate 21 12/01/24 09:19 Pulse Oximetry 96 12/01/24 09:19 Course Orders Ordered: ED Orders 12/01/24 11:21 EKG-12 Lead Stat 12/01/24 11:30 Troponin I Stat 12/01/24 18:53 EKG-12 Lead Stat 12/01/24 19:16 EKG-12 Lead Stat Discontinued Medications Acetaminophen (Acetaminophen 325 Mg Tablet) 975 mg PO NOW ONE Stop: 12/01/24 15:45 Last Admin: 12/01/24 15:48 Dose: 975 mg Documented By: MONSERRAT Aspirin (Aspirin 81 Mg Chew Tab) 324 mg PO NOW ONE Stop: 12/01/24 09:22 Last Admin: 12/01/24 09:58 Dose: Not Given Documented By: DEJUAN Chlordiazepoxide HCl (Chlordiazepoxide 25 Mg Capsule) 50 mg PO Q6H SALLIE Last Admin: 12/01/24 14:07 Dose: 50 mg Documented By: RENA Al Hydrox/Mg Hydrox/Simethicone 20 ml/ Lidocaine HCl 15 ml 0 ml PO NOW ONE Stop: 12/01/24 11:26 Last Admin: 12/01/24 13:39 Dose: 35 ml Documented By: RENA Diltiazem HCl (Diltiazem 25 Mg/5 Ml Sdv) 20 mg IV NOW ONE Stop: 12/01/24 16:19 Last Admin: 12/01/24 16:26 Dose: 20 mg Documented By: MONSERRAT Diphenhydramine HCl (Diphenhydramine 50 Mg/Ml Vial) 25 mg IV NOW ONE Stop: 12/01/24 18:58 Last Admin: 12/01/24 19:07 Dose: 25 mg Documented By: RENA Sodium Chloride (Normal Saline 0.9%) 1,000 mls @ 1,000 mls/hr IV BOLUS ONE Stop: 12/01/24 13:34 Last Infusion: 12/01/24 13:45 Dose: Infused Documented By: Admin: 12/01/24 12:42 Dose: 1,000 mls/hr Documented By: RENA dexmedeTOMIDine in 0.9 % NaCL (Precedex) 400 mcg in 100 mls @ 5.148 mls/hr IV TITRATE SALLIE; Protocol Last Admin: 12/01/24 13:50 Dose: 0.2 mcg/kg/hr, 5.148 mls/hr Documented By: RENA Magnesium Sulfate (Magnesium Sulfate) 2 gm in 50 mls @ 150 mls/hr IV NOW ONE Stop: 12/01/24 16:34 Last Infusion: 12/01/24 17:22 Dose: Infused Documented By: RENA Co-signed By: MONSERRAT Admin: 12/01/24 17:02 Dose: 150 mls/hr Documented By: RENA Co-signed By: [facility] Diltiazem HCl 125 mg/ Sodium (Chloride) 125 mls @ 5 mls/hr IV TITRATE SALLIE; Protocol Last Titration: 12/01/24 19:20 Dose: 5 mg/hr, 5 mls/hr Documented By: Titration: 12/01/24 17:30 Dose: 12.5 mg/hr, 12.5 mls/hr Documented By: Titration: 12/01/24 17:04 Dose: 7.5 mg/hr, 7.5 mls/hr Documented By: Admin: 12/01/24 16:27 Dose: 5 mg/hr, 5 mls/hr Documented By: MONSERRAT Sodium Chloride (Normal Saline 0.9%) 1,000 mls @ 1,000 mls/hr IV BOLUS PRN PRN Reason: Fluid replacement Last Infusion: 12/01/24 18:41 Dose: Infused Documented By: Admin: 12/01/24 17:42 Dose: 1,000 mls/hr Documented By: RENA Metoclopramide HCl (Metoclopramide 10 Mg/2 Ml Inj) 10 mg IV NOW ONE Stop: 12/01/24 18:58 Last Admin: 12/01/24 19:06 Dose: 10 mg Documented By: RENA Metoprolol Tartrate (Metoprolol Tartrate 5 Mg/5 Ml Inj) 5 mg IV NOW ONE Stop: 12/01/24 17:40 Last Admin: 12/01/24 18:13 Dose: 5 mg Documented By: RENA Metoprolol Tartrate (Metoprolol Tartrate 5 Mg/5 Ml Inj) 5 mg IV NOW ONE Stop: 12/01/24 18:38 Ondansetron HCl (Ondansetron 4 Mg/2 Ml Inj) 4 mg IV NOW ONE Stop: 12/01/24 14:33 Last Admin: 12/01/24 14:36 Dose: 4 mg Documented By: RENA Pantoprazole Sodium (Pantoprazole 40 Mg Vial) 80 mg IV NOW ONE Stop: 12/01/24 09:50 Last Admin: 12/01/24 10:09 Dose: 80 mg Documented By: DEJUAN Phenobarbital (Phenobarbital 65 Mg/Ml Vial) 130 mg IV NOW ONE Stop: 12/01/24 09:50 Last Admin: 12/01/24 10:09 Dose: 130 mg Documented By: DEJUAN Phenobarbital (Phenobarbital 65 Mg/Ml Vial) 130 mg IV NOW ONE Stop: 12/01/24 11:44 Last Admin: 12/01/24 11:47 Dose: 130 mg Documented By: RENA Vital Signs Vital signs: Vital Signs - 8 hr 12/01/24 12:20 12/01/24 12:20 12/01/24 12:30 Pulse Rate 102 H 103 H Respiratory Rate 21 23 Blood Pressure 166/71 H Pulse Oximetry 95 94 Oxygen Delivery Method 12/01/24 12:30 12/01/24 12:39 12/01/24 12:39 Pulse Rate 104 H Respiratory Rate Blood Pressure 174/80 H 190/93 H Pulse Oximetry 94 Oxygen Delivery Method 12/01/24 12:40 12/01/24 12:40 12/01/24 12:50 Pulse Rate 102 H 96 H Respiratory Rate 20 Blood Pressure 184/91 H Pulse Oximetry 94 92 Oxygen Delivery Method 12/01/24 12:50 12/01/24 13:00 12/01/24 13:00 Pulse Rate 96 H Respiratory Rate 22 Blood Pressure 176/94 H 179/90 H Pulse Oximetry 92 Oxygen Delivery Method 12/01/24 13:10 12/01/24 13:10 12/01/24 13:20 Pulse Rate 94 H Respiratory Rate 21 Blood Pressure 184/89 H 179/87 H Pulse Oximetry 92 Oxygen Delivery Method 12/01/24 13:20 12/01/24 13:30 12/01/24 13:30 Pulse Rate 100 H 98 H Respiratory Rate 24 33 H Blood Pressure 183/91 H Pulse Oximetry 96 95 Oxygen Delivery Method 12/01/24 13:40 12/01/24 13:40 12/01/24 13:50 Pulse Rate 97 H Respiratory Rate 16 Blood Pressure 181/91 H 171/81 H Pulse Oximetry 100 Oxygen Delivery Method 12/01/24 13:50 12/01/24 14:00 12/01/24 14:30 Pulse Rate 92 H 94 H Respiratory Rate 17 21 Blood Pressure 169/109 H Pulse Oximetry 99 99 Oxygen Delivery Method 12/01/24 14:30 12/01/24 15:00 12/01/24 15:00 Pulse Rate 116 H 92 H Respiratory Rate 26 H 23 Blood Pressure 164/74 H Pulse Oximetry 99 95 Oxygen Delivery Method 12/01/24 15:30 12/01/24 15:30 12/01/24 16:00 Pulse Rate 89 Respiratory Rate 22 Blood Pressure 159/80 H 152/72 H Pulse Oximetry 92 Oxygen Delivery Method 12/01/24 16:00 12/01/24 16:26 12/01/24 16:27 Pulse Rate 85 155 H 155 H Respiratory Rate 21 Blood Pressure 152/72 H 156/72 H Pulse Oximetry 92 Oxygen Delivery Method 12/01/24 16:30 12/01/24 16:30 12/01/24 16:40 Pulse Rate 156 H 142 H Respiratory Rate 22 24 Blood Pressure 134/85 Pulse Oximetry 95 92 Oxygen Delivery Method 12/01/24 16:40 12/01/24 16:50 12/01/24 16:50 Pulse Rate 150 H Respiratory Rate 22 Blood Pressure 132/80 133/80 Pulse Oximetry 90 L Oxygen Delivery Method 12/01/24 17:00 12/01/24 17:00 12/01/24 17:10 Pulse Rate 147 H Respiratory Rate 24 Blood Pressure 134/81 131/75 Pulse Oximetry 90 L Oxygen Delivery Method 12/01/24 17:10 12/01/24 17:21 12/01/24 17:21 Pulse Rate 151 H 140 H Respiratory Rate 22 23 Blood Pressure 113/70 Pulse Oximetry 96 93 Oxygen Delivery Method 12/01/24 18:13 Pulse Rate 150 H Respiratory Rate 16 Blood Pressure 117/76 Pulse Oximetry 97 Oxygen Delivery Method Room Air MDM - Chest Pain Lab Data Attestation: I reviewed the patient's lab results. Lab results narrative: White blood cell count 8900, hemoglobin 13.2, platelets 79,000. BUN 23 with creatinine 1.04 normal renal function. Glucose 125. Serum CO2 12 reduced. Sodium 137 with potassium 4.0 both normal. CPK 1110 elevated. Ethanol level 275 at 9:30 a.m. noted. Initial troponin 0.152, on repeat similar value 0.153 both mildly elevated. BNP 434. 12/01/24 09:30 12/01/24 09:30 Labs: Lab Results 12/01/24 12/01/24 Range/Units 09:30 11:30 WBC 8.9 (4.5-11.0) X10^3/uL RBC 4.13 L (4.5-5.9) X10^6/uL Hgb 13.2 L (13.5-17.5) g/dL Hct 38.1 L (41-53) % MCV 92.3 (80-100) fL MCH 31.9 (26-34) PG MCHC 34.5 (30-36) % RDW 16.0 H (11.6-14.8) % Plt Count 79 L (150-400) X10^3/uL Neut % (Auto) 76.1 H (50-75) % Lymph % (Auto) 15.9 L (25-40) % [place] % (Auto) 6.7 (3-14) % Eos % (Auto) 0.3 L (2-4) % Baso % (Auto) 1.0 (0-2) % Neut # (Auto) 6800 (9856-9280) /uL Lymph # (Auto) 1400 (7928-2412) /uL [place] # (Auto) 600 (0-900) /uL Eos # (Auto) 0 (0-450) /uL Baso # (Auto) 100 (0-100) /uL PT 12.1 (9.4-12.5) SECONDS INR 1.1 (0.9-1.3) APTT 29 (25.1-36.5) SECONDS Sodium 137 (137-145) mmol/L Potassium 4.0 (3.4-5.1) mmol/L Chloride 101 (98-107) mmol/L Carbon Dioxide 12 L (22-32) mmol/L BUN 23 H (9-20) mg/dL Creatinine 1.04 (0.66-1.25) mg/dL Estimated GFR > 60 (>60) mL/min BUN/Creatinine Ratio 22.1 H (6-22) Glucose 125 H (70-99) mg/dL Calcium 8.6 (8.4-10.2) mg/dL Magnesium 1.9 (1.6-2.3) mg/dL Total Bilirubin 2.3 H (0.2-1.3) mg/dL AST 221 H (17-59) IU/L ALT 167 H (<50) IU/L Alkaline Phosphatase 74 (38-126) U/L Total Creatine Kinase 1110 H (55-170) U/L Troponin I 0.152 H* 0.153 H* (0.01-0.034) ng/mL NT-Pro-B Natriuret Pep 343 H (<125) pg/mL Total Protein 8.4 H (6.3-8.2) g/dL Albumin 4.8 (3.5-5.0) g/dL Globulin 3.6 (1.7-4.1) g/dL Albumin/Globulin Ratio 1.3 (1.0-2.8) Lipase 271 (23-300) U/L Ethyl Alcohol 275 H (<10) mg/dL ECG Data Attestation: I personally reviewed and interpreted this ECG as follows: Interpretation: 0924, sinus tachycardia with rate 100, right bundle branch block, FL 134, QRS 142, QTC 503. 1125, sinus tachycardia with rate 101, right bundle branch block, FL 172, QRS 146, QTC 518. 1616, atrial fibrillation with rapid ventricular response, right bundle branch block, QRS 142, QTC 472. MDM Narrative Medical decision making narrative: 64-year-old male with history of CAD status post coronary stenting x3 about 3 weeks ago Theodore Aguilar, known aortic valve problem awaiting TAVR procedure yet to be scheduled, ongoing alcohol use, last drink alcohol this morning, left anterior chest pain since this morning, concerned that he might be in alcohol withdrawal, tremulousness. Initial CIWA score 12 elevated. Screening EKG without obvious ischemic changes, sinus tachycardia. Initial troponin 0.15 to mild elevation, We will repeat interval troponin. IV phenobarbital 130 mg bolus, transient improvement, then CIWA score 16, IV phenobarbital 130 mg bolus repeated. CIWA score 12 then 16 then 9, seems to be responding to repeat phenobarbital dosing. Chest x-ray without obvious acute changes. See radiology report. Repeat troponin 0.0153, similar value not obviously increasing. No in-house Cardiology, we will contact Cardiology from [facility] where he had his recent cardiac stenting last month. 1300, Case discussed with [facility] cardiology Dr. Tariq, who was able to review their records there, known right bundle branch block, known troponin elevation, troponin not less than 0.2 during the hospital stay there, doubts ischemic change in thrombosis at this time, likely due to ischemic cardiomyopathy. Advises holding off on IV heparin. Consider admission here for alcohol withdrawal. We will consult hospitalist. 1330, case discussed with hospitalist Dr. Lin here, agrees with holding off on heparin, however severe alcohol withdrawal would likely need ICU care, no ICU bed available. Would advise transfer for ICU further treatment of alcohol withdrawal. During his last hospitalization here he was in withdrawal and recalls the patient being given Librium 50 mg by mouth every 6 hours, and then weaning from Precedex. Advises Precedex titrated protocol, oral Librium dose, to see if Precedex can be weaned at some later time. Possible transfer for higher level of ICU care. 1515, case discussed with [facility]. Await call back. 1540, case discussed with hospitalist Dr. Scott at [facility] who accepts patient for transfer to their ICU. 1615, rhythm change on monitor, patient feels palpitations and fast heart rate, atrial fibrillation with rapid ventricular rate on monitor, confirmed on EKG, right bundle branch block again noted, no change in his recent chest pain, not on chronic anticoagulation, systolic blood pressure 150. IV magnesium given history of alcohol abuse. IV diltiazem 20 mg bolus with IV infusion ordered. We will update [facility]. Afib VR still 140s after IV Dilt bolus then infusion titrated to maximum. Add IV metoprool 5mg. AFib ventricular response rate 160s to 120s after additional IV metoprolol 5 mg, we will repeat dose, systolic blood pressure 130s noted. Bed assignment, anticipate EMS transport about 9:00 p.m. 191, on monitor there are P waves present, with ventricular rate 60s, apparently converted to sinus rhythm, we will continue diltiazem infusion for transport. EMS here for transport loading patient, we will give copy of last rhythm strip showing sinus rhythm. Transport to [facility] ICU as planned. Core Measures AMI core measures followed: Yes Critical Care Time Critical Care Time Total Critical Care Time: 35 Attestation: The high probability of a clinically significant, sudden or life threatening deterioration of the [cardiopulmonary, metabolic, neurologic] system(s) required my full and direct attention, intervention and personal management. The aggregate critical care time was [35] minutes. This time is in addition to time spent performing reported procedures but includes the following: [x] Data Review and interpretation [x] Patient assessment and monitoring of vital signs [x] Documentation [x] Medication orders and management Discharge Plan Departure Patient Disposition: [facility] Clinical Impression: Atrial fibrillation with rapid ventricular response, Alcohol withdrawal, Chest pain, History of coronary artery disease Prescriptions: No Action No Known Home Medications Referrals: Milli Boateng ARNP [Primary Care Provider] -
--- NOTE | 2024-12-01 11:08 | PC.NURSE ---
Pt resting on stretcher, RA, c/o CP 12/20 at this time, breathing even/equal/unlabored at this time. Call light within reach, pt denies other needs at this time
--- NOTE | 2024-12-01 11:25 | EKG_ITS ---
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
[2024-12-01 12:27] LABS: Troponin I 0.153 ng/mL (0.01-0.034)
[2024-12-01] MEDS: SODIUM CHLORIDE 0.9% 1,000 ML 1000 ML IV ×2 (12:42→17:42)
[2024-12-01] MEDS: MAG HYDROX/ALUMINUM/SIMETH SUS 20 ML, LIDOCAINE VISCOUS 2% 15 ML PO (13:39)
[2024-12-01] MEDS: dexmedeTOMIDine in 0.9 % NaCL 400 MCG/100 ML PLAST..BAG 5.148 MCG IV (13:50)
[2024-12-01] MEDS: chlordiazePOXIDE 25 MG CAPSULE 50 MG PO (14:07)
[2024-12-01] MEDS: ONDANSETRON 4 MG/2 ML INJ IV (14:36)
[2024-12-01] MEDS: ACETAMINOPHEN 325 MG TABLET 975 MG PO (15:48)
--- NOTE | 2024-12-01 16:16 | EKG_ITS ---
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
[2024-12-01] MEDS: dilTIAZem 25 MG/5 ML SDV 20 MG IV (16:26)
[2024-12-01] MEDS: dilTIAZem 125 MG in SODIUM CHLORIDE 0.9% 100 ML IV (16:27)
[2024-12-01] MEDS: MAGNESIUM SULFATE 2 GM/50 ML PIGGYBACK IV (17:02)
[2024-12-01] MEDS: METOPROLOL TARTRATE 5 MG/5 ML INJ IV (18:13)
[2024-12-01] MEDS: METOCLOPRAMIDE 10 MG/2 ML INJ IV (19:06)
[2024-12-01] MEDS: diphenhydrAMINE 50 MG/ML VIAL 25 MG IV (19:07)
--- NOTE | 2024-12-01 19:44 | PC.NURSE ---
Report called to Asha MARTÍNEZ at [facility]
== END 2024-12-01 20:07 | disposition short-term general hospital (02) ==
PROVIDERS: Emergency Provider Emergency Medicine; Family Provider Nurse Practitioner Gerontology; PCP Nurse Practitioner Gerontology
DX: I48.20 Chronic atrial fibrillation, unspecified (principal); R07.9 Chest pain, unspecified; F10.239 Alcohol dependence with withdrawal, unspecified; Y90.8 Blood alcohol level of 240 mg/100 ml or more; Z86.79 Personal history of other diseases of the circulatory system
CPT/HCPCS: 36415; 71045; 80053; 80320; 82550; 83690; 83735; 83880; 84484; 85025; 85610; 85730; 93005; 96361; 96365; 96366; 96367; 96368; 96375; 96376; 99284; 99291; J1200; J2405; J2470; J2560; J2765; J3475

== ENCOUNTER 2025-01-20 06:54 | Inpatient (IN) | payer MEDICARE, SELFPAY ==
[2024-10-29 09:46] VITALS: BMI 26.3
[2025-01-20] VITALS (16 sets, daily range): BP systolic 115–163; BP diastolic 74–105; PULSE 58–108; RESP 10–26; TEMP 36.6–37.1; O2SAT 93–99; BMI 27.0; BMI 23.6
[2025-01-20 08:13] LABS: Add Manual Diff / Slide Review NO; Hematocrit 40.8 % (41-53); Hemoglobin 14.0 g/dL (13.5-17.5); Lymphocytes Absolute Auto 1700 /uL (1100-4500); Mean Corpuscular HGB Conc 34.4 % (30-36); Mean Corpuscular Hemoglobin 31.1 PG (26-34); Mean Corpuscular Volume 90.6 fL (80-100); Platelet Count 138 X10^3/uL (150-400)
[2025-01-20 08:15] LABS: Alanine Aminotransferase 37 IU/L (<50); Albumin 4.7 g/dL (3.5-5.0); Albumin Globulin Ratio 1.3 (1.0-2.8); Alkaline Phosphatase 71 U/L (38-126); Blood Urea Nitrogen 24 mg/dL (9-20); Calcium 9.4 mg/dL (8.4-10.2); Carbon Dioxide 14 mmol/L (22-32); Chloride 108 mmol/L (98-107); Estimated Glomerular Filt Rate > 60 mL/min (>60); Ethanol (ETOH) 232 mg/dL (<10); Globulin 3.7 g/dL (1.7-4.1); Glucose 167 mg/dL (70-99); Magnesium 1.9 mg/dL (1.6-2.3); Potassium 4.2 mmol/L (3.4-5.1); Sodium 142 mmol/L (137-145); Total Protein 8.4 g/dL (6.3-8.2)
[2025-01-20 08:17] LABS: HEMOLYSIS 64 (0-50)
[2025-01-20 08:18] LABS: Acetaminophen < 10 ug/mL (10-30); Salicylate < 1.0 mg/dL (<20)
[2025-01-20] MEDS: MULTIVITAMIN 1 TABLET 1 TAB PO ×2 (08:18→13:54)
[2025-01-20] MEDS: THIAMINE 100 MG TABLET PO (08:19)
[2025-01-20] MEDS: MAGNESIUM SULFATE 2 GM/50 ML PIGGYBACK IV (08:19)
[2025-01-20] MEDS: SODIUM CHLORIDE 0.9% 1,000 ML 1000 ML IV (08:22)
--- NOTE | 2025-01-20 09:20 | EKG_ITS ---
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
[2025-01-20] MEDS: FOLIC ACID 1 MG TABLET PO (09:25)
--- NOTE | 2025-01-20 09:46 | ED.ALCOHOL ---
HPI - Alcohol General Chief Complaint: Toxicology Problem Stated Complaint: Alcohol withdrawl Time Seen by Provider: 01/20/25 07:53 Source: patient and EMS Mode of arrival: EMS History of Present Illness HPI narrative: 64-year-old man with a known history of alcohol abuse disorder and multiple hospitalizations in the past for alcohol withdrawal comes to the ER because of alcohol withdrawal symptoms especially tremor. He denies any other complaints at this time. He states he stopped drinking today before this, however when he awoke this morning his symptoms were already so bad that he did take 1 weeks week of liquor before coming to the ER. Unfortunately, this did not improve his symptoms. Last drink: hours (ago) Related Data Home Medications ?Medication ?Instructions ?Recorded ?Confirmed No Known Home Medications 10/29/24 10/29/24 Allergies Allergy/AdvReac Type Severity Reaction Status Date / Time caffeine (CAFFEINE) Allergy Unknown RASH, FEVER Verified 12/01/24 09:30 codeine (CODEINE) Allergy Unknown RASH Verified 12/01/24 09:30 Patient History Medical History Alcohol abuse Social History household members: none Smoking Status: Never smoker alcohol intake: current Smoking Status: Never smoker alcohol intake frequency: 3 or more drinks per day Alcohol type: hard liquor Exam Initial Vital Signs Initial Vital Signs: Vital Signs Pulse Rate 108 H 01/20/25 06:53 Blood Pressure 142/91 H 01/20/25 06:53 Pulse Oximetry 95 01/20/25 06:53 Const General: No healthy appearing, No comfortable, in distress, anxious, ill appearing and other (tremor) Nutritional Appearance: well nourished Limitations: mental status not altered [facility] Head: normocephalic and atraumatic Eyes General: Yes appearance normal, both eyes and all related structures Resp Effort & Inspection: normal respiratory effort and no respiratory distress Auscultation: clear to auscultation bilaterally Cardio Rate: tachycardic Rhythm: regular rhythm Heart Sounds: S1 normal and S2 normal Neuro General: patient alert, patient awake, patient oriented x3, CN's II-XI intact bilaterally, not confused and not obtunded Cranial Nerves: CN's II-XI intact bilaterally, PERRL, EOM intact bilaterally and facial strength normal Motor: tremor Course Course Course Narrative: Patient presented with clear alcohol withdrawal symptoms with his last drank only 2 hours prior to presentation although he was already having symptoms prior to that. His laboratory evaluation was consistent with somebody with alcohol abuse disorder. I discussed the case with the hospitalist Dr. Bell who accepted the patient for admission. Decision to Admit Date: 01/20/25 Orders Ordered: ED Orders 01/20/25 06:56 Acetaminophen Stat Complete Blood Count AUTO DIFF Stat Comprehensive Metabolic Panel Stat ETOH [Ethanol (ETOH)] Stat Magnesium Stat Salicylate Stat 01/20/25 08:00 Urine Drug Screen, Rapid Stat 01/20/25 09:20 EKG-12 Lead Stat Folic Acid (Folic Acid 1 Mg Tablet) 1 mg PO DAILY SALLIE Last Admin: 01/20/25 09:25 Dose: 1 mg Documented By: ADORE Magnesium Sulfate (Magnesium Sulfate) 2 gm in 50 mls @ 25 mls/hr IV NOW ONE Stop: 01/20/25 09:56 Last Admin: 01/20/25 08:19 Dose: 25 mls/hr Documented By: ADORE Co-signed By: YAMIL Sodium Chloride (Normal Saline 0.9%) 1,000 mls @ 150 mls/hr IV CONT SALLIE Multivitamins (Multivitamin 1 Tablet) 1 tab PO DAILY SALLIE Last Admin: 01/20/25 08:18 Dose: 1 tab Documented By: ADORE Thiamine HCl (Thiamine 100 Mg Tablet) 100 mg PO DAILY SALLIE Stop: 01/23/25 09:01 Last Admin: 01/20/25 08:19 Dose: 100 mg Documented By: ADORE Discontinued Medications Diazepam (Diazepam 10 Mg/2 Ml Syringe) 5 mg IV NOW ONE Stop: 01/20/25 08:10 Last Admin: 01/20/25 08:22 Dose: 5 mg Documented By: ADORE Diazepam (Diazepam 10 Mg/2 Ml Syringe) 10 mg IM NOW ONE Stop: 01/20/25 09:42 Sodium Chloride (Normal Saline 0.9%) 1,000 mls @ 1,000 mls/hr IV BOLUS ONE Stop: 01/20/25 09:18 Last Infusion: 01/20/25 09:31 Dose: Infused Documented By: Admin: 01/20/25 08:22 Dose: 1,000 mls/hr Documented By: ADORE Lorazepam (Lorazepam 2 Mg/Ml Inj) 0 mg IV CIWAPRN PRN; Protocol PRN Reason: Alcohol Withdrawal Lorazepam (Lorazepam 1 Mg Tablet) 0 mg PO CIWAPRN PRN; Protocol PRN Reason: Alcohol Withdrawal Vital Signs Vital signs: Vital Signs - 8 hr 01/20/25 06:53 01/20/25 06:53 01/20/25 06:57 Temperature 98.4 F Pulse Rate 108 H 101 H Respiratory Rate 26 H Blood Pressure 142/91 H 142/91 H Pulse Oximetry 95 97 Oxygen Delivery Method Room Air 01/20/25 07:00 01/20/25 07:00 01/20/25 07:30 Temperature Pulse Rate 99 H 97 H Respiratory Rate 14 10 L Blood Pressure 145/94 H Pulse Oximetry 94 93 Oxygen Delivery Method 01/20/25 07:30 01/20/25 08:00 01/20/25 08:00 Temperature Pulse Rate 96 H Respiratory Rate 11 L Blood Pressure 128/87 145/101 H Pulse Oximetry 94 Oxygen Delivery Method 01/20/25 08:30 01/20/25 08:30 01/20/25 09:00 Temperature Pulse Rate 96 H Respiratory Rate 24 Blood Pressure 115/74 144/94 H Pulse Oximetry 96 Oxygen Delivery Method 01/20/25 09:00 Temperature Pulse Rate 90 Respiratory Rate 11 L Blood Pressure Pulse Oximetry 96 Oxygen Delivery Method MDM - Alcohol Differential Diagnosis Differential diagnosis: Likely alcohol withdrawal delirium, hypomagnesemia, alcohol intoxication, alcohol withdrawal syndrome and alcohol withdrawal seizure Condition is:: Improved Lab Data 01/20/25 06:56 01/20/25 06:56 Labs: Lab Results 01/20/25 Range/Units 06:56 WBC 7.8 (4.5-11.0) X10^3/uL RBC 4.50 (4.5-5.9) X10^6/uL Hgb 14.0 (13.5-17.5) g/dL Hct 40.8 L (41-53) % MCV 90.6 (80-100) fL MCH 31.1 (26-34) PG MCHC 34.4 (30-36) % RDW 15.3 H (11.6-14.8) % Plt Count 138 L (150-400) X10^3/uL Neut % (Auto) 67.3 (50-75) % Lymph % (Auto) 21.5 L (25-40) % [place] % (Auto) 10.1 (3-14) % Eos % (Auto) 0.7 L (2-4) % Baso % (Auto) 0.4 (0-2) % Neut # (Auto) 5200 (5096-0030) /uL Lymph # (Auto) 1700 (0318-9875) /uL [place] # (Auto) 800 (0-900) /uL Eos # (Auto) 100 (0-450) /uL Baso # (Auto) 0 (0-100) /uL Sodium 142 (137-145) mmol/L Potassium 4.2 (3.4-5.1) mmol/L Chloride 108 H (98-107) mmol/L Carbon Dioxide 14 L (22-32) mmol/L BUN 24 H (9-20) mg/dL Creatinine 0.86 (0.66-1.25) mg/dL Estimated GFR > 60 (>60) mL/min BUN/Creatinine Ratio 27.9 H (6-22) Glucose 167 H (70-99) mg/dL Calcium 9.4 (8.4-10.2) mg/dL Magnesium 1.9 (1.6-2.3) mg/dL Total Bilirubin 1.2 (0.2-1.3) mg/dL AST 86 H (17-59) IU/L ALT 37 (<50) IU/L Alkaline Phosphatase 71 (38-126) U/L Total Protein 8.4 H (6.3-8.2) g/dL Albumin 4.7 (3.5-5.0) g/dL Globulin 3.7 (1.7-4.1) g/dL Albumin/Globulin Ratio 1.3 (1.0-2.8) Salicylates < 1.0 (<20) mg/dL Acetaminophen < 10 (10-30) ug/mL Ethyl Alcohol 232 H (<10) mg/dL Discharge Plan Departure Patient Disposition: Admitted As Inpatient Clinical Impression: Alcohol withdrawal Qualifiers: Complication of substance-induced condition: uncomplicated Qualified Code(s): F10.930 - Alcohol use, unspecified with withdrawal, uncomplicated Admit Date/Time: 01/20/25 09:40 Admit Provider: Jurgen Prasad
[2025-01-20] MEDS: SODIUM CHLORIDE 0.9% 1,000 ML 150 ML IV (11:35)
--- NOTE | 2025-01-20 11:43 | P.HP_ITS ---
History of Present Illness History of Present Illness Date Patient Seen: 01/20/25 Chief complaint: Alcohol withdrawl [facility] Medical History Alcohol abuse Social History household members: none Smoking Status: Never smoker alcohol intake: current Meds Home Medications and Allergies Home Medications ?Medication ?Instructions ?Recorded ?Confirmed ?Type amlodipine 10 mg tablet 10 mg PO DAILY 01/20/2501/10 History amoxicillin 500 mg capsule 500 mg PO 3XD 01/20/2501/10 History chlorhexidine gluconate 0.12 % 15 ml PO BID 01/20/25 0 01/20/25 History mouthwash ibuprofen 800 mg tablet 800 mg PO 3XD PRN fever or p ain 01/20/25 01/20/25 History Allergies Allergy/AdvReac Type Severity Reaction Status Date / Time caffeine (CAFFEINE) Allergy Unknown RASH, FEVER Verified 12/01/24 09:30 codeine (CODEINE) Allergy Unknown RASH Verified 12/01/24 09:30 Exam Vital Signs (past 8 hours): - 01/20/25 06:53 01/20/25 06:53 01/20/25 06:57 Temperature 98.4 F Pulse Rate 108 H 101 H Respiratory Rate 26 H Blood Pressure 142/91 H 142/91 H Pulse Oximetry 95 97 Oxygen Delivery Method Room Air 01/20/25 07:00 01/20/25 07:00 01/20/25 07:30 Temperature Pulse Rate 99 H 97 H Respiratory Rate 14 10 L Blood Pressure 145/94 H Pulse Oximetry 94 93 Oxygen Delivery Method 01/20/25 07:30 01/20/25 08:00 01/20/25 08:00 Temperature Pulse Rate 96 H Respiratory Rate 11 L Blood Pressure 128/87 145/101 H Pulse Oximetry 94 Oxygen Delivery Method 01/20/25 08:30 01/20/25 08:30 01/20/25 09:00 Temperature Pulse Rate 96 H Respiratory Rate 24 Blood Pressure 115/74 144/94 H Pulse Oximetry 96 Oxygen Delivery Method 01/20/25 09:00 01/20/25 09:30 01/20/25 09:30 Temperature Pulse Rate 90 86 Respiratory Rate 11 L 12 Blood Pressure 156/98 H Pulse Oximetry 96 99 Oxygen Delivery Method 01/20/25 10:00 01/20/25 10:00 01/20/25 10:30 Temperature Pulse Rate 91 H Respiratory Rate 25 H Blood Pressure 148/89 H 154/97 H Pulse Oximetry 97 Oxygen Delivery Method Room Air 01/20/25 10:30 Temperature Pulse Rate 91 H Respiratory Rate 16 Blood Pressure Pulse Oximetry 97 Oxygen Delivery Method Room Air Oxygen Delivery Method Room Air Objective Labs 01/20/25 06:56 01/20/25 06:56 Labs: Laboratory Results - last 24 hr 01/20/25 06:56 WBC 7.8 RBC 4.50 Hgb 14.0 Hct 40.8 L MCV 90.6 MCH 31.1 MCHC 34.4 RDW 15.3 H Plt Count 138 L Neut % (Auto) 67.3 Lymph % (Auto) 21.5 L [place] % (Auto) 10.1 Eos % (Auto) 0.7 L Baso % (Auto) 0.4 Neut # (Auto) 5200 Lymph # (Auto) 1700 [place] # (Auto) 800 Eos # (Auto) 100 Baso # (Auto) 0 Sodium 142 Potassium 4.2 Chloride 108 H Carbon Dioxide 14 L BUN 24 H Creatinine 0.86 Estimated GFR > 60 BUN/Creatinine Ratio 27.9 H Glucose 167 H Calcium 9.4 Magnesium 1.9 Total Bilirubin 1.2 AST 86 H ALT 37 Alkaline Phosphatase 71 Total Protein 8.4 H Albumin 4.7 Globulin 3.7 Albumin/Globulin Ratio 1.3 Salicylates < 1.0 Acetaminophen < 10 Ethyl Alcohol 232 H Assessment & Plan Time-Based Coding :: [TOTAL MINUTES] spent with patient and on the chart (including review of chart, obtaining history, exam, reviewing outside data, placing orders, documenting exam and treatment plan, and counseling patient) on [DATE]. Quality VTE Deep Vein Thrombosis/Pulmonary Embolism Present on Admission: No
[2025-01-20] MEDS: ACETAMINOPHEN 325 MG TABLET 650 MG PO (11:52)
[2025-01-20] MEDS: ONDANSETRON 4 MG/2 ML INJ IV (11:52)
[2025-01-20] MEDS: OXYCODONE IR 5 MG TABLET PO ×2 (11:52→16:52)
--- NOTE | 2025-01-20 13:30 | PM.HP.1 ---
History of Present Illness History of Present Illness Date Patient Seen: 01/20/25 Time Patient Seen: 13:30 Chief complaint: Alcohol withdrawl Narrative: Patient is a 64-year-old man with 7 years of sobriety started drinking every day to weeks ago. Fifth a day. Last drink 6:00 a.m. this morning. Patient has had alcohol withdrawals before. He states that he otherwise just was under a lot of stress brother mother has had a lot of things going on. And started drinking. He does not participate in AA but has been in groups before. Has people he could talk to but chose not to. Does have somebody he has in a relationship with. Not . Last month went down for stenting x3 in his heart and aortic valve replacement. Has been feeling well. Otherwise physically. Until he quit drinking this morning. Shaky and did not do well. Otherwise no change. [facility] Medical History Alcohol abuse Social History household members: none Smoking Status: Never smoker alcohol intake: current Meds Home Medications and Allergies Home Medications ?Medication ?Instructions ?Recorded ?Confirmed ?Type amlodipine 10 mg tablet 10 mg PO DAILY 01/20/25 01/20/25 History amoxicillin 500 mg capsule 500 mg PO 3XD 01/20/25 01/20/25 History chlorhexidine gluconate 0.12 % 15 ml PO BID 01/20/25 01/20/25 History mouthwash ibuprofen 800 mg tablet 800 mg PO 3XD PRN fever or pain 01/20/25 01/20/25 History Allergies Allergy/AdvReac Type Severity Reaction Status Date / Time caffeine (CAFFEINE) Allergy Unknown RASH, FEVER Verified 12/01/24 09:30 codeine (CODEINE) Allergy Unknown RASH Verified 12/01/24 09:30 Review of Systems Review of Systems Narrative: Alert male in no acute distress no chest pain no shortness a breath no abdominal pain. No change in bowel movements no urinary complaints no nausea or vomiting. Just shaky. Exam Vital Signs (past 8 hours): - 01/20/25 06:53 01/20/25 06:53 01/20/25 06:57 Temperature 98.4 F Pulse Rate 108 H 101 H Respiratory Rate 26 H Blood Pressure 142/91 H 142/91 H Pulse Oximetry 95 97 Oxygen Delivery Method Room Air Oxygen Flow Rate 01/20/25 07:00 01/20/25 07:00 01/20/25 07:30 Temperature Pulse Rate 99 H 97 H Respiratory Rate 14 10 L Blood Pressure 145/94 H Pulse Oximetry 94 93 Oxygen Delivery Method Oxygen Flow Rate 01/20/25 07:30 01/20/25 08:00 01/20/25 08:00 Temperature Pulse Rate 96 H Respiratory Rate 11 L Blood Pressure 128/87 145/101 H Pulse Oximetry 94 Oxygen Delivery Method Oxygen Flow Rate 01/20/25 08:30 01/20/25 08:30 01/20/25 09:00 Temperature Pulse Rate 96 H Respiratory Rate 24 Blood Pressure 115/74 144/94 H Pulse Oximetry 96 Oxygen Delivery Method Oxygen Flow Rate 01/20/25 09:00 01/20/25 09:30 01/20/25 09:30 Temperature Pulse Rate 90 86 Respiratory Rate 11 L 12 Blood Pressure 156/98 H Pulse Oximetry 96 99 Oxygen Delivery Method Oxygen Flow Rate 01/20/25 10:00 01/20/25 10:00 01/20/25 10:30 Temperature Pulse Rate 91 H Respiratory Rate 25 H Blood Pressure 148/89 H 154/97 H Pulse Oximetry 97 Oxygen Delivery Method Room Air Oxygen Flow Rate 01/20/25 10:30 01/20/25 11:41 Temperature 98.4 F Pulse Rate 91 H 94 H Respiratory Rate 16 20 Blood Pressure 130/98 H Pulse Oximetry 97 99 Oxygen Delivery Method Room Air Oxygen Flow Rate 0 Oxygen Delivery Method Room Air Oxygen Flow Rate 0 Narrative Exam Narrative: Alert male shaking slightly uncontrollably in no acute distress. Patient has a healing eschar in the left eye. No bruising no tenderness. Pupils are equal and responsive to light. Mucous membranes moist neck supple without adenopathy. No JVD no bruits. Lungs are clear heart is regular rate and rhythm without murmurs clicks rubs or gallops abdomen is soft positive bowel sounds nontender extremities without cyanosis clubbing edema neurologic exam patient is shaky and tearful otherwise nonfocal Objective Labs 01/20/25 06:56 01/20/25 06:56 Labs: Laboratory Results - last 24 hr 01/20/25 06:56 WBC 7.8 RBC 4.50 Hgb 14.0 Hct 40.8 L MCV 90.6 MCH 31.1 MCHC 34.4 RDW 15.3 H Plt Count 138 L Neut % (Auto) 67.3 Lymph % (Auto) 21.5 L [place] % (Auto) 10.1 Eos % (Auto) 0.7 L Baso % (Auto) 0.4 Neut # (Auto) 5200 Lymph # (Auto) 1700 [place] # (Auto) 800 Eos # (Auto) 100 Baso # (Auto) 0 Sodium 142 Potassium 4.2 Chloride 108 H Carbon Dioxide 14 L BUN 24 H Creatinine 0.86 Estimated GFR > 60 BUN/Creatinine Ratio 27.9 H Glucose 167 H Calcium 9.4 Magnesium 1.9 Total Bilirubin 1.2 AST 86 H ALT 37 Alkaline Phosphatase 71 Total Protein 8.4 H Albumin 4.7 Globulin 3.7 Albumin/Globulin Ratio 1.3 Salicylates < 1.0 Acetaminophen < 10 Ethyl Alcohol 232 H Assessment & Plan Assessment & Plan narrative: Alcohol withdrawal. Probably pretty significant. Usual protocol. I will start phenobarbital 130 b.i.d. for possible seizure disorders. Discussed this. Patient understands. Will need probable more long-term treatment options as an outpatient. Seizure precautions Grief reaction/depression. Hard to know when he is coming off his alcohol right now. But he is going to need some therapy and possibly medications. Certainly have to get him out away from his alcohol withdrawal for we do that. Coronary artery disease. Appears to be stable. Medicines restarted. Not on a lot. Will see how things go. Recent aortic valve replacement. Stable. Code status full GI prophylaxis not needed Disposition. Will be here probably several days. Given the way what he looks. No other changes. Maybe things will turn around quicker. We had a long discussion about this. Given the amount of shaking am worried significantly about seizure activity will see how things go. Precautions under place. Otherwise we need to figure out his medications cause I suspect he should be on more medications Time-Based Coding :: [TOTAL MINUTES] spent with patient and on the chart (including review of chart, obtaining history, exam, reviewing outside data, placing orders, documenting exam and treatment plan, and counseling patient) on [DATE]. Quality VTE Deep Vein Thrombosis/Pulmonary Embolism Present on Admission: No
[2025-01-20] MEDS: SODIUM CHLORIDE 0.9% 1,000 ML 100 ML IV ×2 (13:53→20:03)
[2025-01-20] MEDS: IBUPROFEN 400 MG TABLET PO (13:53)
[2025-01-20] MEDS: METOPROLOL IR 50 MG TABLET 200 MG PO (21:34)
[2025-01-20] MEDS: EZETIMIBE 10 MG TABLET PO (21:34)
[2025-01-20] MEDS: GABAPENTIN 300 MG CAPSULE PO (21:34)
[2025-01-20] MEDS: APIXABAN 5 MG TABLET PO (21:34)
[2025-01-20] MEDS: ATORVASTATIN 20 MG TABLET 80 MG PO (21:34)
[2025-01-21] VITALS (9 sets, daily range): BP systolic 109–146; BP diastolic 56–92; PULSE 56–72; RESP 14–21; TEMP 36.6–37.2; O2SAT 96–98
[2025-01-21] MEDS: ACETAMINOPHEN 325 MG TABLET 650 MG PO ×2 (05:24→15:16)
[2025-01-21] MEDS: SODIUM CHLORIDE 0.9% 1,000 ML 100 ML IV ×2 (05:25→15:14)
[2025-01-21 05:43] LABS: UR Morphine/Opiate cutoff 300 Negative (Negative); Urine MDMA Negative (Negative); Urine Methamphetamines Negative (Negative); Urine Tetrahydrocannabinol Positive (Negative); Urine Tricyclic Antidepressant Negative (Negative)
[2025-01-21 05:50] LABS: Add Manual Diff / Slide Review NO; Hematocrit 35.1 % (41-53); Hemoglobin 12.3 g/dL (13.5-17.5); Lymphocytes Absolute Auto 1200 /uL (1100-4500); Mean Corpuscular HGB Conc 34.9 % (30-36); Mean Corpuscular Hemoglobin 31.6 PG (26-34); Mean Corpuscular Volume 90.6 fL (80-100); Platelet Count 82 X10^3/uL (150-400)
[2025-01-21 06:04] LABS: Alanine Aminotransferase 26 IU/L (<50); Albumin 3.8 g/dL (3.5-5.0); Albumin Globulin Ratio 1.3 (1.0-2.8); Alkaline Phosphatase 63 U/L (38-126); Blood Urea Nitrogen 22 mg/dL (9-20); Calcium 9.0 mg/dL (8.4-10.2); Carbon Dioxide 22 mmol/L (22-32); Chloride 107 mmol/L (98-107); Estimated Glomerular Filt Rate > 60 mL/min (>60); Globulin 3.0 g/dL (1.7-4.1); Glucose 97 mg/dL (70-99); HEMOLYSIS < 15 (0-50); Potassium 4.5 mmol/L (3.4-5.1); Sodium 136 mmol/L (137-145); Total Protein 6.8 g/dL (6.3-8.2)
[2025-01-21] MEDS: THIAMINE 100 MG TABLET PO (09:15)
[2025-01-21] MEDS: APIXABAN 5 MG TABLET PO ×2 (09:15→21:53)
[2025-01-21] MEDS: MULTIVITAMIN 1 TABLET 1 TAB PO (09:15)
[2025-01-21] MEDS: AMLODIPINE 5 MG TABLET 10 MG PO (09:15)
[2025-01-21] MEDS: ENOXAPARIN 40 MG/0.4 ML SYRINGE SUBCUT (09:16)
[2025-01-21] MEDS: CLOPIDOGREL 75 MG TABLET PO (09:16)
[2025-01-21] MEDS: GABAPENTIN 300 MG CAPSULE PO ×3 (09:16→21:53)
[2025-01-21] MEDS: METOPROLOL IR 50 MG TABLET 200 MG PO ×2 (09:16→21:53)
[2025-01-21] MEDS: FOLIC ACID 1 MG TABLET PO (09:17)
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
[2025-01-21] MEDS: SENNOSIDES 8.6 MG TABLET PO ×2 (13:24→21:53)
--- NOTE | 2025-01-21 13:58 | PM.PN.IH.1 ---
Subjective Subjective Interval history: This morning the pt reports ongoing significant shakiness, minimally improved from yesterday. He denies any additional concerns. He has been feeling constipated. Exam Vital Signs (past 8 hours): - 01/21/25 06:31 01/21/25 08:56 01/21/25 10:15 Temperature 97.9 F Pulse Rate 61 63 70 Respiratory Rate 16 16 14 Blood Pressure 128/87 Pulse Oximetry 97 Oxygen Delivery Method Oxygen Flow Rate 0 01/21/25 10:59 01/21/25 13:00 Temperature 98.7 F Pulse Rate 63 Respiratory Rate 17 Blood Pressure 122/75 Pulse Oximetry 97 Oxygen Delivery Method Room Air Oxygen Flow Rate 0 Oxygen Delivery Method Room Air Oxygen Flow Rate 0 Narrative Exam Narrative: Gen: NAD, sitting comfortably in bed, speaking easily, very shaky CV: RRR, no murmurs Resp: clear to auscultation bilaterally Abd: soft, nontender, nondistended, normoactive bowel sounds Ext: no edema Neuro: no gross deficits Objective Labs 01/21/25 05:25 01/21/25 05:25 Labs: Laboratory Results - last 24 hr 01/21/25 01/21/25 05:16 05:25 WBC 4.4 L RBC 3.88 L Hgb 12.3 L Hct 35.1 L MCV 90.6 MCH 31.6 MCHC 34.9 RDW 15.1 H Plt Count 82 L Neut % (Auto) 55.0 Lymph % (Auto) 28.3 [place] % (Auto) 12.1 Eos % (Auto) 3.7 Baso % (Auto) 0.9 Neut # (Auto) 2400 Lymph # (Auto) 1200 [place] # (Auto) 500 Eos # (Auto) 200 Baso # (Auto) 0 Sodium 136 L Potassium 4.5 Chloride 107 Carbon Dioxide 22 BUN 22 H Creatinine 0.70 Estimated GFR > 60 BUN/Creatinine Ratio 31.4 H Glucose 97 Calcium 9.0 Total Bilirubin 2.7 H AST 49 ALT 26 Alkaline Phosphatase 63 Total Protein 6.8 Albumin 3.8 Globulin 3.0 Albumin/Globulin Ratio 1.3 U Opiates 300ng/mL cut Negative Ur Oxycodone Screen Positive H Urine Methadone Screen Negative Ur Barbiturates Screen Positive H U Tricyclic Antidepress Negative Ur Phencyclidine Scrn Negative Ur Amphetamines Screen Negative U Methamphetamines Scrn Negative Ur MDMA Scrn (Ecstasy) Negative U Benzodiazepines Scrn Positive H Urine Cocaine Screen Negative U Marijuana (THC) Screen Positive H Urine pH TNP Urine Specific [place] TNP Ur Creatinine TNP PFSH Medical History Alcohol abuse Social History household members: none Smoking Status: Never smoker alcohol intake: current Assessment & Plan Assessment & Plan narrative: Pt is a 64yo man with HTN, alcoholism, CAD, and recent aortic valve replacement who presented with alcohol withdrawal. 1) Alcohol withdrawal: CIWA up to 15 yesterday, now 7. Pt stable. - Continue Phenobarbital for seizure protection - Continue as per CIWA protocol with Lorazepam - Continue vitamin replacement 2) Grief reaction/depression: Will need to be better assessed as an outpatient 3) CAD, HTN, s/p aortic valve replacement: Stable - Continue home Amlodipine, Eliquis, Plavix, Atorvastatin, Ezetimibe 4) Constipation: - Start Senna Code status: Full Diet: General DVT ppx: On Eliquis Dispo: Pending stability in withdrawal symptoms. Anticipate several additional nights. Time-Based Coding :: [TOTAL MINUTES] spent with patient and on the chart (including review of chart, obtaining history, exam, reviewing outside data, placing orders, documenting exam and treatment plan, and counseling patient) on [DATE]. Quality VTE Deep Vein Thrombosis/Pulmonary Embolism Present on Admission: No IH PROFEE Director Of Strategic Marketing Document charge(s): Yes Charge Codes Subsequent inpatient/observation care: [id number]
[2025-01-21] MEDS: ATORVASTATIN 20 MG TABLET 80 MG PO (21:53)
[2025-01-21] MEDS: EZETIMIBE 10 MG TABLET PO (21:53)
[2025-01-22] MEDS: SODIUM CHLORIDE 0.9% 1,000 ML 100 ML IV (00:57)
[2025-01-22 02:55] VITALS: PULSE 64; RESP 16
[2025-01-22 05:26] VITALS: BP 110/71; PULSE 62; RESP 19; TEMP 36.9; O2SAT 93
[2025-01-22] MEDS: FOLIC ACID 1 MG TABLET PO (08:41)
[2025-01-22] MEDS: DOCUSATE 100 MG CAPSULE PO (08:41)
[2025-01-22] MEDS: METOPROLOL IR 50 MG TABLET 200 MG PO ×2 (08:41→21:08)
[2025-01-22] MEDS: GABAPENTIN 300 MG CAPSULE PO ×3 (08:41→21:08)
[2025-01-22] MEDS: ACETAMINOPHEN 325 MG TABLET 650 MG PO ×2 (08:41→17:20)
[2025-01-22] MEDS: MULTIVITAMIN 1 TABLET 1 TAB PO (08:41)
[2025-01-22] MEDS: THIAMINE 100 MG TABLET PO (08:41)
[2025-01-22] MEDS: SENNOSIDES 8.6 MG TABLET PO ×2 (08:42→21:08)
[2025-01-22] MEDS: APIXABAN 5 MG TABLET PO ×2 (08:42→21:08)
[2025-01-22] MEDS: AMLODIPINE 5 MG TABLET 10 MG PO (08:42)
[2025-01-22] MEDS: CLOPIDOGREL 75 MG TABLET PO (08:42)
[2025-01-22 08:59] VITALS: BP 135/72; PULSE 70; RESP 20; TEMP 36.8; O2SAT 97
--- NOTE | 2025-01-22 11:20 | P.PN_ITS ---
Subjective Subjective Interval history: The pt reports feeling minimally improved. He is slightly less shaky. He was able to ambulate around the floor twice yesterday, which was encouraging. He still has not had a BM. Exam Vital Signs (past 8 hours): - 01/22/25 05:26 01/22/25 08:59 Temperature 98.5 F 98.2 F Pulse Rate 62 70 Respiratory Rate 19 20 Blood Pressure 110/71 135/72 Pulse Oximetry 93 97 Oxygen Flow Rate 0 0 Oxygen Delivery Method Room Air Oxygen Flow Rate 0 Narrative Exam Narrative: Gen: NAD, sitting comfortably in bed, speaking easily, shaking significantly less than yesterday CV: RRR, no murmurs Resp: clear to auscultation bilaterally Abd: soft, nontender, nondistended, normoactive bowel sounds Ext: no edema Neuro: no gross deficits Objective Labs 01/21/25 05:25 01/21/25 05:25 [facility] Medical History Alcohol abuse Social History household members: none Smoking Status: Never smoker alcohol intake: current Assessment & Plan Assessment & Plan narrative: Pt is a 64yo man with HTN, alcoholism, CAD, and recent aortic valve replacement who presented with alcohol withdrawal. 1) Alcohol withdrawal: CIWA stable at 7. Pt stable, does show some signs of improvement - Continue Phenobarbital for seizure protection - Continue as per CIWA protocol with Lorazepam - Continue vitamin replacement 2) Grief reaction/depression: Will need to be better assessed as an outpatient 3) CAD, HTN, s/p aortic valve replacement: Stable - Continue home Amlodipine, Eliquis, Plavix, Atorvastatin, Ezetimibe 4) Constipation: - Continue Senna, Miralax - Glycerine suppository Code status: Full Diet: General DVT ppx: On Eliquis Dispo: Pending stability in withdrawal symptoms. Anticipate several additional nights. Time-Based Coding :: [TOTAL MINUTES] spent with patient and on the chart (including review of chart, obtaining history, exam, reviewing outside data, placing orders, documenting exam and treatment plan, and counseling patient) on [DATE]. Quality VTE Deep Vein Thrombosis/Pulmonary Embolism Present on Admission: No IH PROFEE Electrical Technician Instructor Document charge(s): Yes Charge Codes Subsequent inpatient/observation care: [id number]
[2025-01-22 13:00] VITALS: BP 139/80; PULSE 61; RESP 20; TEMP 36.5; O2SAT 97
[2025-01-22 17:00] VITALS: BP 134/85; PULSE 68; RESP 18; TEMP 37.2; O2SAT 96
[2025-01-22] MEDS: GLYCERIN SUPP ADULT 1 SUPP 1 EACH PR (17:20)
[2025-01-22 20:55] VITALS: BP 140/79; PULSE 67; RESP 19; TEMP 36.9; O2SAT 97
[2025-01-22] MEDS: ATORVASTATIN 20 MG TABLET 80 MG PO (21:08)
[2025-01-22] MEDS: EZETIMIBE 10 MG TABLET PO (21:09)
[2025-01-23] VITALS (8 sets, daily range): BP systolic 111–144; BP diastolic 66–85; PULSE 68–88; RESP 14–20; TEMP 36.6–37; O2SAT 95–98
[2025-01-23] MEDS: ACETAMINOPHEN 325 MG TABLET 650 MG PO (02:34)
[2025-01-23] MEDS: APIXABAN 5 MG TABLET PO ×2 (08:58→20:44)
[2025-01-23] MEDS: CLOPIDOGREL 75 MG TABLET PO (08:58)
[2025-01-23] MEDS: GABAPENTIN 300 MG CAPSULE PO ×3 (08:58→20:45)
[2025-01-23] MEDS: FOLIC ACID 1 MG TABLET PO (08:58)
[2025-01-23] MEDS: AMLODIPINE 5 MG TABLET 10 MG PO (08:58)
[2025-01-23] MEDS: THIAMINE 100 MG TABLET PO (08:59)
[2025-01-23] MEDS: METOPROLOL IR 50 MG TABLET 200 MG PO ×2 (08:59→20:43)
[2025-01-23] MEDS: MULTIVITAMIN 1 TABLET 1 TAB PO (08:59)
[2025-01-23] MEDS: SENNOSIDES 8.6 MG TABLET PO ×2 (08:59→20:44)
[2025-01-23] MEDS: OXYCODONE IR 5 MG TABLET PO ×2 (10:09→20:44)
--- NOTE | 2025-01-23 12:59 | P.PN_ITS ---
Subjective Subjective Date Patient Seen: 01/23/25 Time Patient Seen: 12:59 Interval history: Patient seen in follow-up alcohol withdrawal grief reaction coronary artery disease hypertension and recent aortic valve replacement. Patient difficult to arouse this morning confused slow to respond shaky somewhat nauseous still feeling not great. Has no new significant change. Exam Vital Signs (past 8 hours): - 01/23/25 05:20 01/23/25 07:00 01/23/25 09:00 Temperature 98 F 98.5 F Pulse Rate 70 69 77 Respiratory Rate 17 15 20 Blood Pressure 120/85 136/80 Pulse Oximetry 98 97 Oxygen Flow Rate 0 0 Oxygen Delivery Method Room Air Oxygen Flow Rate 0 Narrative Exam Narrative: Alert male shaking in no acute distress slow to respond Lungs are clear heart is regular rate and rhythm neurologic exam shows continued tremor but no other changes. Objective Labs 01/21/25 05:25 01/21/25 05:25 [facility] Medical History Alcohol abuse Social History household members: none Smoking Status: Never smoker alcohol intake: current Assessment & Plan Assessment & Plan narrative: Alcohol withdrawal. Still not at baseline. Or even closed. Still worry about his ability to function with his current mental slowness and his shaking. I believe it will require 1 more day of treatment. May have to go home on benzodiazepine for short period of time. Will have to see how he does. Discussed with social service about his treatment options. He would like to at least see what is available. We will see if we can set anything up today and then if not will be discharged home probably tomorrow. Discussed his need to continue quitting drinking Grief reaction/depression. Certainly running into some of the effects of alcoholism. Which makes a lot of as depressed. But overall I think he is stable. Do not think we have to make any changes at this time but will need to follow. Coronary artery disease hypertension patient is stable. Back on his usual medication. Having no symptoms. Will follow up with Cardiology and primary care doctor. Constipation. No change. Continue senna and MiraLax. Seems to be working. Code status full. DVT on Eliquis. Diet. General. Disposition. I am hoping he can go home tomorrow. But I am not entirely sure he will be able to move well enough. Could be several more days. Will have to see how it goes. One day at a time. Looking into treatment options will be good. Time-Based Coding :: [TOTAL MINUTES] spent with patient and on the chart (including review of chart, obtaining history, exam, reviewing outside data, placing orders, documenting exam and treatment plan, and counseling patient) on [DATE]. Quality VTE Deep Vein Thrombosis/Pulmonary Embolism Present on Admission: No
--- NOTE | 2025-01-23 16:03 | CM.DPC ---
DCP Cont: Per MD, pt still getting tx for withdrawal but making improvements and anticipates likely d/c tomorrow Tues if stable and requesting SW to provide resources to patient prior to d/c. MARJORIE met bedside with pt and he remains tearful due to his stressors and recent grief from of loved ones. Attempted to help pt call his district attorney at [place] offices in [facility] [phone] and left general msg as voicemail box did not confirm secured voicemail. Helped to advocate for pt with his Computer Typesetter Keyliner and Forest Worker ([phone]) as pt has court hearing tomorrow 01/24 at 0900 and will not be discharged in time and court asking for confirmation from hospital staff to email pt's district attorney office and the court with pt's name, ANA, case #[id number] that pt is admitted and will not be discharged in time for tomorrow's hearing. MARJORIE emailed the requested offices at [email or web address] and [email or web address] MARJORIE provided pt with legal advocacy resources for [facility] as well as provided ETOH Inpt and outpt tx options and counseling support for his grief and life stressors. [facility] Resources information was also given per pt's request. Pt states he has a very supportive men's voodoo group and one member is a licensed counselor and pt has been accepted by him as a new client and will start counseling sessions after discharge. TRENA Low
[2025-01-23] MEDS: ATORVASTATIN 20 MG TABLET 80 MG PO (20:44)
[2025-01-23] MEDS: EZETIMIBE 10 MG TABLET PO (20:45)
[2025-01-23] MEDS: SODIUM CHLORIDE 0.9% FLUSH 10 ML IV (20:49)
[2025-01-23] MEDS: ONDANSETRON 4 MG/2 ML INJ IV (20:57)
[2025-01-24] VITALS: BP 125/65; PULSE 62; RESP 16; TEMP 36.5; O2SAT 96
--- NOTE | 2025-01-24 02:23 | PC.NURSE ---
Patient is alert and oriented although off on day of month by 1 day. Bilateral UE moderate tremoring noted and had initial CIWA of 9 related to nausea, headache and tremors. Medicated with Lorazepam with CIWA going down to 6. CIWA at 0100 was 1. Breath sounds CTA with RA sat of 96%. HRR w/telemetry reading of SR w/BBB at 2000 and same + frequent PVC's at 0000. Medicated with Zofran for nausea with resolution of same. BT present and reports having had BM on previous shift. Is voiding per urinal and denied any dysuria. Is able to turn himself in bed. Up to bathroom and walking in ayoub with walker and SBA; seemed steady on feet. Medicated with oxycodone for moderately severe headache with resolution of pain. SCD's applied once in bed for the night. Fall risk score is high and bed alarm is activated.
[2025-01-24 04:00] VITALS: BP 107/56; PULSE 68; RESP 17; TEMP 36.8; O2SAT 96
[2025-01-24] MEDS: SODIUM CHLORIDE 0.9% FLUSH 10 ML IV ×3 (05:06→21:44)
[2025-01-24] MEDS: OXYCODONE IR 5 MG TABLET PO ×4 (05:27→21:50)
[2025-01-24 06:44] LABS: Ammonia (NH3) < 9 umol/L (9-30)
[2025-01-24 08:00] VITALS: BP 130/60; PULSE 63; RESP 19; TEMP 36.9; O2SAT 97
--- NOTE | 2025-01-24 08:22 | PM.PN.1 ---
Subjective Subjective Date Patient Seen: 01/24/25 Time Patient Seen: 08:23 Interval history: Patient seen in [facility]. Patient had unremarkable night. Patient is still on phenobarbital 130 mg IV Q 8 still is tremulous but is overall doing better is eating well. This is hospital day 5. Status post acute alcohol withdrawal 12 point review of systems otherwise negative Denies any chest pain shortness for breath lightheadedness or dizziness Exam Vital Signs (past 8 hours): - 01/24/25 04:00 Temperature 98.2 F Pulse Rate 68 Respiratory Rate 17 Blood Pressure 107/56 L Pulse Oximetry 96 Oxygen Flow Rate 0 Oxygen Delivery Method Room Air Oxygen Flow Rate 0 Narrative Exam Narrative: Patient is alert and oriented and conversant intermittently tearful voicing desire to reestablish relationship with his children Afebrile vital signs are stable HEENT unremarkable Neck: Supple Chest: Clear to auscultation without wheezes rhonchi or crackles Abdomen: Positive bowel sounds, soft, nontender, nondistended Extremities no edema pulses intact Unsteady gait, Objective Labs 01/21/25 05:25 01/21/25 05:25 Labs: Laboratory Results - last 24 hr 01/24/25 06:10 Ammonia < 9 L PFSH Medical History Alcohol abuse Social History household members: none Smoking Status: Never smoker alcohol intake: current Assessment & Plan Assessment & Plan narrative: Assessment & Plan narrative: Pt is a 64yo man with HTN, alcoholism, CAD, and recent aortic valve replacement who presented with alcohol withdrawal. Hospital day 5. 1) Alcohol withdrawal: CIWA stable at 6. Pt stable, does show some signs of improvement but very slow. - unfortunately we do not have IV phenobarb at [facility] so we will transition over to Librium and he may have to be discharged home with Librium likely. - Continue as per [facility] protocol with Lorazepam - Continue vitamin replacement -will recheck labs -discussed with care management for options. -due to slow progress and high-level phenobarb patient requires additional 24 hours inpatient at the minimum -will consult PT 2) Grief reaction/depression: Will need to be better assessed as an outpatient. Clearly alcohol abuse is contributing 3) CAD, HTN, s/p aortic valve replacement: Stable - Continue home Amlodipine, Eliquis, Plavix, Atorvastatin, Ezetimibe. No current concerns. Follow up with Cardiology 4) Constipation: - Continue Senna, Miralax - Glycerine suppository Code status: Full Diet: General DVT ppx: On Eliquis Dispo: Pending stability in withdrawal symptoms. Time-Based Coding :: [TOTAL MINUTES] spent with patient and on the chart (including review of chart, obtaining history, exam, reviewing outside data, placing orders, documenting exam and treatment plan, and counseling patient) on [DATE]. Quality VTE Deep Vein Thrombosis/Pulmonary Embolism Present on Admission: No
[2025-01-24] MEDS: MULTIVITAMIN 1 TABLET 1 TAB PO (08:37)
[2025-01-24] MEDS: APIXABAN 5 MG TABLET PO ×2 (08:37→21:38)
[2025-01-24] MEDS: CLOPIDOGREL 75 MG TABLET PO (08:37)
[2025-01-24] MEDS: METOPROLOL IR 50 MG TABLET 200 MG PO ×2 (08:37→21:38)
[2025-01-24] MEDS: FOLIC ACID 1 MG TABLET PO (08:37)
[2025-01-24] MEDS: GABAPENTIN 300 MG CAPSULE PO ×3 (08:37→21:38)
[2025-01-24] MEDS: AMLODIPINE 5 MG TABLET 10 MG PO (08:37)
[2025-01-24] MEDS: SENNOSIDES 8.6 MG TABLET PO ×2 (08:37→21:38)
[2025-01-24 09:09] LABS: Add Manual Diff / Slide Review NO; Hematocrit 33.9 % (41-53); Hemoglobin 11.6 g/dL (13.5-17.5); Lymphocytes Absolute Auto 1700 /uL (1100-4500); Mean Corpuscular HGB Conc 34.1 % (30-36); Mean Corpuscular Hemoglobin 31.0 PG (26-34); Mean Corpuscular Volume 91.0 fL (80-100); Platelet Count 108 X10^3/uL (150-400)
[2025-01-24 09:23] LABS: Blood Urea Nitrogen 16 mg/dL (9-20); Calcium 9.4 mg/dL (8.4-10.2); Carbon Dioxide 22 mmol/L (22-32); Chloride 103 mmol/L (98-107); Estimated Glomerular Filt Rate > 60 mL/min (>60); Glucose 153 mg/dL (70-99); HEMOLYSIS < 15 (0-50); Potassium 4.0 mmol/L (3.4-5.1); Sodium 133 mmol/L (137-145)
--- NOTE | 2025-01-24 10:34 | CM.DPC ---
DCP Cont. Reviewed EMR and team rounds for pt's medical status and updates. Pt is still on phenobarb, not yet ready for d/c. Likely 1-2 more days.
[2025-01-24 12:00] VITALS: BP 126/74; PULSE 68; RESP 18; TEMP 36.2; O2SAT 98
[2025-01-24] MEDS: ACETAMINOPHEN 325 MG TABLET 650 MG PO (14:47)
[2025-01-24 16:00] VITALS: BP 128/77; PULSE 61; RESP 20; TEMP 36.8; O2SAT 97
[2025-01-24 20:15] VITALS: BP 113/75; PULSE 66; RESP 18; TEMP 36.3; O2SAT 98
[2025-01-24] MEDS: ATORVASTATIN 20 MG TABLET 80 MG PO (21:38)
[2025-01-24] MEDS: EZETIMIBE 10 MG TABLET PO (21:38)
[2025-01-25 00:15] VITALS: BP 112/62; PULSE 64; RESP 16; TEMP 36.4; O2SAT 93
[2025-01-25 05:01] VITALS: BP 113/72; PULSE 69; RESP 16; TEMP 36.4; O2SAT 97
[2025-01-25 06:19] LABS: Add Manual Diff / Slide Review NO; Hematocrit 32.8 % (41-53); Hemoglobin 11.3 g/dL (13.5-17.5); Lymphocytes Absolute Auto 1500 /uL (1100-4500); Mean Corpuscular HGB Conc 34.3 % (30-36); Mean Corpuscular Hemoglobin 31.5 PG (26-34); Mean Corpuscular Volume 91.7 fL (80-100); Platelet Count 100 X10^3/uL (150-400)
[2025-01-25 06:33] LABS: Alanine Aminotransferase 27 IU/L (<50); Albumin 3.8 g/dL (3.5-5.0); Albumin Globulin Ratio 1.4 (1.0-2.8); Alkaline Phosphatase 86 U/L (38-126); Blood Urea Nitrogen 19 mg/dL (9-20); Calcium 9.0 mg/dL (8.4-10.2); Carbon Dioxide 26 mmol/L (22-32); Chloride 104 mmol/L (98-107); Estimated Glomerular Filt Rate > 60 mL/min (>60); Globulin 2.8 g/dL (1.7-4.1); Glucose 99 mg/dL (70-99); HEMOLYSIS < 15 (0-50); Potassium 4.3 mmol/L (3.4-5.1); Sodium 135 mmol/L (137-145); Total Protein 6.6 g/dL (6.3-8.2)
[2025-01-25] MEDS: AMLODIPINE 5 MG TABLET 10 MG PO (09:11)
[2025-01-25] MEDS: MULTIVITAMIN 1 TABLET 1 TAB PO (09:11)
[2025-01-25] MEDS: FOLIC ACID 1 MG TABLET PO (09:11)
[2025-01-25] MEDS: APIXABAN 5 MG TABLET PO ×2 (09:12→21:38)
[2025-01-25] MEDS: GABAPENTIN 300 MG CAPSULE PO ×3 (09:12→21:38)
[2025-01-25] MEDS: CLOPIDOGREL 75 MG TABLET PO (09:12)
[2025-01-25] MEDS: METOPROLOL IR 50 MG TABLET 200 MG PO ×2 (09:12→21:37)
[2025-01-25] MEDS: SENNOSIDES 8.6 MG TABLET PO ×2 (09:12→21:37)
[2025-01-25 09:20] VITALS: BP 118/70; PULSE 70; RESP 20; TEMP 36.8; O2SAT 98
--- NOTE | 2025-01-25 10:15 | PT.IIE ---
Current Diagnoses Alcohol dependence with withdrawal, unspecified (01/20/25) Medical History Alcohol abuse Physical Therapy Inpatient Evaluation/Re-Eval M1 PT/OT-IP Prior Functional Status Start: 01/25/25 12:55 Freq: NEEDED Status: Active Protocol: Document 01/25/25 10:15 AB (Rec: 01/25/25 13:11 AB [id number]) Medical Review Prior Functional Status Medical History Yes Reviewed Communication able to make needs known; slightly slow to respond to questions/instructions Mobility and Gait pt stated that he was independent with all mobilities and ambulation without AD; was still driving Social History Household Members none Living Arrangements House Number of Floors ( One Floor Floors) Number of Stairs To 6 steps B rails to enter Enter/Railing? Home Environment Standard Height Toilet,Walk in Shower Home Equipment Front Wheel Walker,Shower Seat with Backrest M2 PT-IP Current Condition Start: 01/25/25 12:55 Freq: NEEDED Status: Active Protocol: Document 01/25/25 10:15 AB (Rec: 01/25/25 13:11 AB [id number]) Physical Therapy Current Condition Current Condition Evaluation Date 01/25/25 Treatment Diagnosis alcohol withdrawal; difficulty in walking Onset Date 01/20/25 M3 PT-IP Subjective Start: 01/25/25 12:55 Freq: NEEDED Status: Active Protocol: Document 01/25/25 10:15 AB (Rec: 01/25/25 13:11 AB [id number]) Subjective Physical Therapy Visit Type Type Initial Evaluation Visit Start Time 10:15 Visit Stop Time 10:40 Number of FLIGHT STEWARD Visits 0 Physical Therapy Visit Comments Patient Comments agreeable to do PT Therapy Pain Assessment Pain When Pain Assessed At Rest Location HEAD Intensity 6 M4 PT-IP Mobility and Gait Start: 01/25/25 12:55 Freq: NEEDED Status: Active Protocol: Document 01/25/25 10:15 AB (Rec: 01/25/25 13:11 AB [id number]) PT-Bed Mobility Assessment Supine to Sit Supine to Sit Independent Sit to Supine Sit to Supine Independent PT-Transfer Assessment Sit to and From Stand Sit to and from Standby Assistance,1 Person Assistance,Use of Upper Stand Extremities Equipment Transfer Assistive Gait Belt,Front Wheeled Walker Device Transfers Transfer Destination Toilet Transfer Technique ambulated Transfer Ability Level of Assist Contact Guard Assistance,1 Person Assistance,Use of Upper Extremities Comments Mobility Comments pt in bed and agreed to do PT. obtained PLOF and home setup. pt requested to use the toilet. BP: 128/73; c/ o a headache. nurse aware. completed supine to sit mod I. sit to stand SBA and ambulated to the toilet using fWW CGA. able to complete toileting SBA. ambulated towards the sink using FWW CGA and able to maintain standing CGA while completing handwashing and grooming needs. presents with unsteady gait. pt agreed to ambulate more and completed ~ 125 ft using FWW in the hallway initial CGA but midway only needing SBA and cues for safety. pt completed up/down stairs using B rails SBA step through pattern. pt ambulated back to his room SBA using FWW. Assessed ambulation without AD and completed ~ 10 ft min A. presents with unsteady wide based gait and (+) tremors. pt requested to go back to bed. sit to supine mod I. positioned pt in bed. call light and table placed within reach. informed pt to use FWW at this time for safety and pt agreed. Gait Assessment Gait Gait Assistance Standby Assistance,Contact Guard Assist,Minimum Required: Assistance Distance (Feet) 125 Able to Maintain Yes Weight Bearing Status During Gait Assistive Devices Assistive Device None,Gait Belt,Front Wheeled Walker Orthotic/Prosthetic No Devices or Brace: Gait Deviations General Gait Pattern Ataxic,Decreased Stride Length,Decreased Feet Clearance ,Wide Based Gait Factors Limiting Gait Function Factors Limiting Decreased Activity Tolerance,Decreased Strength, Gait Function Difficulty Following Directions,Pain,Poor Balance,Poor Safety Awareness Stair Climbing Assessment Evaluation Level of Assist On Standby Assistance Stairs Devices Stair Climbing Four Wheel Walker,Right Railing Assistive Devices Technique/Endurance Stair Climbing Step Over Step Technique Number of Steps 3 Climbed Query Text: Stair Climbing Set # 2 Repetitions (reps) PT-Balance Assessment Sitting Balance and Reactions Static Sitting Normal Balance Ability Dynamic Sitting Good Balance Ability Standing Balance and Reactions Static Standing Good Balance Ability Dynamic Standing Fair Balance Ability Device Used FWW M5 PT-IP Objective Assessments Start: 01/25/25 12:55 Freq: NEEDED Status: Active Protocol: Document 01/25/25 10:15 AB (Rec: 01/25/25 13:11 AB [id number]) Orientation Orientation/Cognition Level of Alertness Alert Orientation Name,Place,Situation Safety Awareness Decreased Safety Awareness Memory Description Short Term Impaired Gross Range of Motion Lower Extremity ROM Assessment Within Functional Limits Strength Lower Extremity Strength Assessment Within Functional Limits Muscle Tone Comments Muscle Tone Comments (+) overall tremors M6 PT-IP Treatment Start: 01/25/25 12:55 Freq: NEEDED Status: Active Protocol: Document 01/25/25 10:15 AB (Rec: 01/25/25 13:11 AB [id number]) Physical Therapy Treatment Education Education Provided Safety M7 PT-IP Assessment and Plan Start: 01/25/25 12:55 Freq: NEEDED Status: Active Protocol: Document 01/25/25 10:15 AB (Rec: 01/25/25 13:11 AB [id number]) PT Summary Assessment and Plan Potential Rehabilitation Fair Potential Status of Condition Evolving at Evaluation Summary Impairments Pain,ROM,Strength,Balance,Coordination,Sensation,Tone, Cognition,Bed Mobility,Transfers,Gait,Activity Tolerance Assessment Summary pt is a 64 y/o M who is admitted for alcohol withdrawal . pt requiring SBA to CGA with ambulation using FWW and min A without AD. Recommending use of FWW at this time. pt slow to respond to questions/instructions and has decrease safety awareness. pt will need assistance at home and HHPT. Recommending OT eval and informed heel caser. Goals Transfer Goal Independent,Front Wheeled Walker Gait Goal Independent,Front Wheel Walker Gait Distance 300 Other Goals improve transfers and ambulation without AD >300 ft mod I up/down 6 steps using B rails mod I Days to Meet Goals 10 Frequency of Treatment Frequency Of Once a Day Treatment Treatment Plan Physical Therapy Bed Mobility Training,Transfer Training,Gait Training, Treatment Plan Therapeutic Exercise,Balance Retraining,Discharge Planning,Hot or Cold Pack,Neuromuscular Re-ed, Coordination Retraining,Manual Therapy Precautions Other Precautions falls Recommendations To Nursing Amount of Assist 1 Person Assist Needed Discharge Recommendations PT Discharge Home with Assistance,Home Health Recommendations Transportation Needs Private Vehicle,Wheelchair/Cabulance at Discharge - PT assist 1
[2025-01-25 13:00] VITALS: BP 128/73; PULSE 68; RESP 16; TEMP 36.8; O2SAT 98
--- NOTE | 2025-01-25 13:22 | CM.DPC ---
DCP Cont. Reviewed EMR and team rounds for pt's medical status and updates. Plan is for pt to work with PT/OT today, and if able to ambulate safely, will d/c home with family. Monitoring for final d/c needs.
[2025-01-25] MEDS: SODIUM CHLORIDE 0.9% FLUSH 10 ML IV ×2 (13:31→21:38)
--- NOTE | 2025-01-25 14:05 | OT.IP.EVAL ---
Current Diagnoses Alcohol dependence with withdrawal, unspecified (01/20/25) Past Medical History Alcohol abuse Occupational Therapy Inpatient Evaluation/Re-Eval M1 PT/OT-IP Prior Functional Status Start: 01/25/25 12:55 Freq: NEEDED Status: Active Protocol: Document 01/25/25 14:40 [facility] (Rec: 01/25/25 15:00 [facility] Desktop) Medical Review Prior Functional Status Medical History Yes Reviewed Communication able to make needs known; slightly slow to respond to questions/instructions Mobility and Gait pt stated that he was independent with all mobilities and ambulation without AD; was still driving Activities of Daily Pt prior completely independent with all needs. Living and IADL's Social History Household Members none Living Arrangements House Number of Floors ( One Floor Floors) Number of Stairs To 6 steps B rails to enter Enter/Railing? Home Environment Standard Height Toilet,Walk in Shower Home Equipment Front Wheel Walker,Shower Seat with Backrest Additional Social Pt states neighbors can assist him. Per CM his daughter History Comment lives nearby. M2 OT-IP Current Condition Start: 01/25/25 14:29 Freq: Status: Active Protocol: Document 01/25/25 14:40 [facility] (Rec: 01/25/25 15:00 [facility] Desktop) Occupational Therapy Current Condition Current Condition Evaluation Date 01/25/25 Treatment Diagnosis ETOH Withdrawal Diagnosis Onset Date 01/20/25 M3 OT- IP Subjective and Pain Start: 01/25/25 14:29 Freq: Status: Active Protocol: Document 01/25/25 14:40 [facility] (Rec: 01/25/25 15:00 [facility] Desktop) OT- Subjective Occupational Therapy Visit Type Type Initial Evaluation Visit Start Time 13:30 Visit Stop Time 14:05 Occupational Therapy Visit Comments Patient Comments Pt agreed to get up with OT to do oral care needs and toilet. Patient/Caregiver TO go home. Goals OT Pain Assessment Pain When Pain Assessed At Rest Pain Present Pain Present Denied Pain M4 OT- IP ADL's Start: 01/25/25 14:29 Freq: Status: Active Protocol: Document 01/25/25 14:40 [facility] (Rec: 01/25/25 15:00 [facility] Desktop) OT [id number] Comments OT Self-Feeding Not at meal time. Comments OT ADL-Grooming General Evaluation Grooming Ability Independent Comments OT Grooming Comments Able to do while standing at the sink. OT ADL-Oral Care General Eval Oral Care Ability Independent OT ADL-Dressing General Eval Lower Body Dressing Independent Ability Comments OT Dressing Comments Pt able to independently tiara/doff socks while seated. Encouraged pt to sit for LB dressing needs as pt is a little unstable on his feet now. OT ADL-Toileting General Evaluation Toileting Ability Independent Comments OT Toileting Pt able to get into and out of the toilet on his own Comments with distant SBA. OT ADL-Bathing Comments OT Bathing Comments Not performed. Pt will benefit from an actual shower chair versus pt states has a garden lawn chair that he can use. M5 OT- IP IADL's Start: 01/25/25 14:29 Freq: Status: Active Protocol: Document 01/25/25 14:40 [facility] (Rec: 01/25/25 15:00 [facility] Desktop) OT-Instrumental Activities of Daily Living Deficits IADL Deficits Deficits Identified Home Safety Awareness Awareness of Need Decreased Awareness for Assistance at Home Ability to Problem Able to Problem Solve Solve Emergency Situations Medication Management Medication Pt states uses a pill organizer at home. Management Comments Money Management Money Management Pt would benefit from supervision as needing time for Comments math calculations today while completing the SLUMS. Meal Preparation Meal Preparation Pt would benefit from at least supervision and assist Comments as needed. Vocational Rehabilitation Administrator Vocational Rehabilitation Administrator Pt will benefit from at least supervision due to Comments decreased dynamic balance at this time. Driving Driving Concerns Identified Regarding Safety M6 OT- IP Functional Cognition Start: 01/25/25 14:29 Freq: Status: Active Protocol: Document 01/25/25 14:40 [facility] (Rec: 01/25/25 15:00 [facility] Desktop) Cognitive Factors Limiting Selfcare Function Cognitive Ability Level of Alertness Alert Patient Orientation Name,Age,Birthday,Month,Date,Year,Day of Week,Place, Situation Attention Span Capable of Focused Attention,Capable of Sustained Ability Attention Ability to Follow Able to Follow One Step Commands Commands Memory Description Short Term Impaired Safety Awareness Underestimates Need for Assistance Cognitive Tests SLUMS Pt scored 24/30 which implies mild cognitive disorder. Pt able to recall 2/5 objects after time passed, and not able to states 4 digit number backwards, and able to answer 3/4 questions right after paragraph read. Pt having most difficulty with his STM. Cognitive Comments Cognitive Assessment Pt not able to complete [place] Making Part B and stopped Comments 2/[address] completing it. Pt needing increased time to find the numbers and letters and then forgetting the instructions. Lack of completion of the assessment implies severe impairments for visual attention, speed of processing, task switching, executive functioning, and mental flexibility. OT- Vision and Hearing OT- Hearing Assessment OT- Hearing WFL Assessment OT- Vision Assessment Visual Acuity Glasses For Reading Visual Attentiveness WFL Occular Pursuits WFL Visual Convergence WFL Visual White WFL M7 OT- IP Mobility and Balance Start: 01/25/25 14:29 Freq: Status: Active Protocol: Document 01/25/25 14:40 [facility] (Rec: 01/25/25 15:00 [facility] Desktop) OT- Bed Mobility Assessment Supine to Sit Supine to Sit Assist Independent Sit to Supine Sit to Supine Assist Independent OT-Transfer Assessment Sit to and From Stand Sit to and from Independent Stand Transfers Transfer Ability Standby Assistance Technique Transfer Destination Bed,Toilet Transfer Technique Stand Step Pivot Devices Transfer Assistive Gait Belt Devices Comments Mobility Comments Pt able to independently do bed mobility needs. Distant SBA for mobility with no device as unsteady on his feet, tremulous and ataxic with wide base of support. At this time much safer for pt to use a FWW for safety. OT- Balance Assessment Sitting Balance and Reactions Static Sitting Normal Balance Ability Dynamic Sitting Normal Balance Ability Standing Balance and Reactions Static Standing Good Balance Ability Dynamic Standing Fair Balance Ability M8 OT- IP Objective Assessments Start: 01/25/25 14:29 Freq: Status: Active Protocol: Document 01/25/25 14:40 [facility] (Rec: 01/25/25 15:00 [facility] Desktop) OT Gross Range of Motion Upper Extremity Range of Motion Assessment Within Functional Limits OT Strength Upper Extremity Strength Assessment Within Functional Limits OT- Coordination Assessment Upper Extremity Finger to Nose Test Within Functional Limits OT-Muscle Tone Assessment Muscle Tone WNL Yes M9 OT- IP Assessment and Plan Start: 01/25/25 14:29 Freq: Status: Active Protocol: Document 01/25/25 14:40 [facility] (Rec: 01/25/25 15:00 [facility] Desktop) OT Summary Assessment and Plan Potential Rehabilitation Good Potential Analytic Complexity Moderate at Evaluation Summary OT Impairments Balance,Functional Cognition,Functional Mobility, Dressing,Toileting,Bathing,Toilet Transfers,Shower Transfers Progress Towards Progressing Toward Goals Goals Assessment Summary Pt here for ETOH withdrawal and main barriers are steps , decreased dynamic balance, and STM. Pt scored 24/30 on the SLUMS which implies mild neurocognitive disorder . Pt not able to complete [place] MAking Part B which therefore implies severe impairments for visual attention, speed of processing, mental flexibility and executive functioning. Pt will benefit from assist at home especially for IADL needs. Best to have someone stay with him initially as hopefully pt improves medically. Goals Dressing Goal Independent Toileting Goal Independent Bathing Goal Independent Toilet Transfer Goal Independent Shower Transfer Goal Independent Days to Meet Goals 3 Frequency of Treatment Frequency Of Once a Day Treatment Treatment Plan OT Treatment Plan ADL Training,Functional Cognition Training,Functional Mobility,Patient/Family Education,Discharge Planning Other Treatment ACL, shower Recommendations and Next Treatment Focus Discharge Recommendations OT Discharge Home with 02/02 Assist Available Recommendations Transportation Needs Private Vehicle at Discharge
--- NOTE | 2025-01-25 16:26 | PC.NURSE ---
Pt resting at intervals T/O day Denies discomfort CiWa 3 & 1 Amb[address] hallways w/ Pt w/o incidence. Tele NSR per ICU staff Call light w/in reach, pt calls appropriately for needs. Continue w/plan of care.
[2025-01-25 17:00] VITALS: BP 123/80; PULSE 66; RESP 17; TEMP 36.6; O2SAT 98
[2025-01-25 19:42] VITALS: BP 135/76; PULSE 70; RESP 16; TEMP 36.7; O2SAT 97
--- NOTE | 2025-01-25 20:33 | PM.PN.1 ---
Subjective Subjective Date Patient Seen: 01/25/25 Time Patient Seen: 09:10 Interval history: CC: ETOH withdrawal He is improving able to stop phenobarbitol IV transitioning to librium PO - today goal is work with PT and OT - look at discharge planning based on how he does. Exam Vital Signs (past 8 hours): - 01/25/25 13:00 01/25/25 17:00 01/25/25 19:42 Temperature 98.2 F 97.8 F 98.0 F Pulse Rate 68 66 70 Respiratory Rate 16 17 16 Blood Pressure 128/73 123/80 135/76 Pulse Oximetry 98 98 97 Oxygen Flow Rate 0 0 0 Oxygen Delivery Method Room Air Oxygen Flow Rate 0 Narrative Exam Narrative: alert laying in bed Resp Other: satting well on room air moving air well clear to auscultation bilaterally Cardio Other: regular rate and rhythm s1/s2 no pedal edema GI Other: soft nontender active bowel sounds Neuro Other: alert oriented moving all limbs Objective Labs 01/25/25 05:48 01/25/25 05:48 Labs: Laboratory Results - last 24 hr 01/25/25 05:48 WBC 6.2 RBC 3.58 L Hgb 11.3 L Hct 32.8 L MCV 91.7 MCH 31.5 MCHC 34.3 RDW 15.5 H Plt Count 100 L Neut % (Auto) 59.7 Lymph % (Auto) 24.9 L [place] % (Auto) 9.4 Eos % (Auto) 5.3 H Baso % (Auto) 0.7 Neut # (Auto) 3700 Lymph # (Auto) 1500 [place] # (Auto) 600 Eos # (Auto) 300 Baso # (Auto) 0 Sodium 135 L Potassium 4.3 Chloride 104 Carbon Dioxide 26 BUN 19 Creatinine 0.82 Estimated GFR > 60 BUN/Creatinine Ratio 23.2 H Glucose 99 Calcium 9.0 Total Bilirubin 0.6 AST 34 ALT 27 Alkaline Phosphatase 86 Total Protein 6.6 Albumin 3.8 Globulin 2.8 Albumin/Globulin Ratio 1.4 PFSH Medical History Alcohol abuse Social History household members: none Smoking Status: Never smoker alcohol intake: current Assessment & Plan Assessment & Plan narrative: Pt is a 64yo man with HTN, alcoholism, CAD, and recent aortic valve replacement who presented with alcohol withdrawal. Hospital day 5. #acute alcohol withdrawal Slowly improving able to stop IVs and transition to PO meds, continue CIWA and work with PT/OT he has been in bed for a week #alcohol dependence recurrent despite outpt vivitrol #depression in setting of alcohol dependence. F/up as outpt #CAD, HTN, s/p aortic valve replacement: Stable Stable, continue home Amlodipine, Eliquis, Plavix, Atorvastatin, Ezetimibe. No current concerns. Follow up with Cardiology #Constipation Stable continue Senna, Miralax, Glycerine suppository Dispo: pending PT/OT eval Code status: Full Diet: General DVT ppx: On Eliquis Time-Based Coding :: [TOTAL MINUTES] spent with patient and on the chart (including review of chart, obtaining history, exam, reviewing outside data, placing orders, documenting exam and treatment plan, and counseling patient) on [DATE]. Quality VTE Deep Vein Thrombosis/Pulmonary Embolism Present on Admission: No
[2025-01-25] MEDS: ATORVASTATIN 20 MG TABLET 80 MG PO (21:37)
[2025-01-25] MEDS: EZETIMIBE 10 MG TABLET PO (21:37)
[2025-01-26] VITALS: BP 107/66; PULSE 62; RESP 16; TEMP 36.5; O2SAT 95
[2025-01-26 05:58] LABS: Add Manual Diff / Slide Review NO; Hematocrit 32.6 % (41-53); Hemoglobin 11.2 g/dL (13.5-17.5); Lymphocytes Absolute Auto 1700 /uL (1100-4500); Mean Corpuscular HGB Conc 34.2 % (30-36); Mean Corpuscular Hemoglobin 31.4 PG (26-34); Mean Corpuscular Volume 91.8 fL (80-100); Platelet Count 115 X10^3/uL (150-400)
[2025-01-26 06:10] LABS: Alanine Aminotransferase 25 IU/L (<50); Albumin 3.7 g/dL (3.5-5.0); Albumin Globulin Ratio 1.4 (1.0-2.8); Alkaline Phosphatase 85 U/L (38-126); Blood Urea Nitrogen 18 mg/dL (9-20); Calcium 9.2 mg/dL (8.4-10.2); Carbon Dioxide 21 mmol/L (22-32); Chloride 106 mmol/L (98-107); Estimated Glomerular Filt Rate > 60 mL/min (>60); Globulin 2.6 g/dL (1.7-4.1); Glucose 99 mg/dL (70-99); HEMOLYSIS < 15 (0-50); Potassium 4.2 mmol/L (3.4-5.1); Sodium 136 mmol/L (137-145); Total Protein 6.3 g/dL (6.3-8.2)
[2025-01-26 08:00] VITALS: BP 128/77; PULSE 67; RESP 20; TEMP 36.8; O2SAT 97
--- NOTE | 2025-01-26 08:48 | PM.DS.1 ---
History of Present Illness History of Present Illness Date Patient Seen: 01/26/25 Time Patient Seen: 08:48 Chief complaint: Alcohol withdrawl Narrative: Chief complaint acute alcohol withdrawal. Patient is feeling better today appetite is normal sleep is good able to work with PT and OT yesterday and they recommended home with assist his daughter does live nearby and will be able to help him out at home for the next couple of days. We will be sending Librium taper to [facility] the outside EMR. He will be following up with us in clinic within the week. Discharge Providers Provider Date of admission: 01/20/25 09:40 Discharge Date: 01/26/25 Primary care physician: VICKIE Vera Consults: 01/25/25 08:00 Consult to Physical Therapy Evaluate & Treat Comment: Physician Instructions: Evaluate and Treat 01/25/25 10:40 Consult to Occupational Therapy Evaluate & Treat Comment: Physician Instructions: Evaluate and treat Discharge provider: Meliton Solroio MD Summary Hospital Course Discharge Diagnosis: #acute alcohol withdrawal #alcohol dependence #depression #CAD, HTN, s/p aortic valve replacement #Constipation Hospital Course: Admitted for acute alcohol withdrawal on phenobarb drip slowly improved over course of hospitalization heavy drinker at baseline this is despite vivitrol injection similar hospitalization noted 2 months ago. Cleared by PT/OT to go home - will f/up as outpt. Status at Discharge Cognitive/behavioral status at discharge: at baseline, oriented Functional status at discharge: uses cane/walker Overall status at discharge: patient is progressing back to baseline Exam Vital Signs (past 8 hours): Oxygen Delivery Method Room Air Oxygen Flow Rate 0 Narrative Exam Narrative: Resting comfortably in bed Const Other: Well-nourished well-developed Resp Other: Clear to auscultation bilaterally Cardio Other: Regular rate and rhythm with moderate ejection murmur at upper right sternal border GI Other: Soft nontender active bowel sounds Neuro Other: Alert awake oriented Extrem Other: Moving all extremities no pedal edema Objective Labs 01/26/25 05:10 01/26/25 05:10 Labs: Laboratory Results - last 24 hr 01/26/25 05:10 WBC 6.7 RBC 3.56 L Hgb 11.2 L Hct 32.6 L MCV 91.8 MCH 31.4 MCHC 34.2 RDW 15.9 H Plt Count 115 L Neut % (Auto) 61.0 Lymph % (Auto) 24.9 L [place] % (Auto) 8.5 Eos % (Auto) 5.0 H Baso % (Auto) 0.6 Neut # (Auto) 4100 Lymph # (Auto) 1700 [place] # (Auto) 600 Eos # (Auto) 300 Baso # (Auto) 0 Sodium 136 L Potassium 4.2 Chloride 106 Carbon Dioxide 21 L BUN 18 Creatinine 0.73 Estimated GFR > 60 BUN/Creatinine Ratio 24.7 H Glucose 99 Calcium 9.2 Total Bilirubin 0.5 AST 30 ALT 25 Alkaline Phosphatase 85 Total Protein 6.3 Albumin 3.7 Globulin 2.6 Albumin/Globulin Ratio 1.4 PFSH Medical History Alcohol abuse Social History household members: none Smoking Status: Never smoker alcohol intake: current Discharge Assessment & Plan Assessment and Plan Assessment: Pt is a 64yo man with HTN, alcoholism, CAD, and recent aortic valve replacement who presented with alcohol withdrawal. #acute alcohol withdrawal Slowly improving able to stop IVs and transition to PO meds, work with PT/OT and ambulate ready to go home #alcohol dependence recurrent despite outpt vivitrol may need new strategy He admits this is not really fun for him anymore #depression in setting of alcohol dependence. F/up as outpt #CAD, HTN, s/p aortic valve replacement: Stable Stable, continue home Amlodipine, Eliquis, Plavix, Atorvastatin, Ezetimibe. No current concerns. Follow up with Cardiology #Constipation Stable continue Senna, Miralax, Glycerine suppository Dispo: home to f/up as outpt Code status: Full Diet: General DVT ppx: On Eliquis Discharge Plan Discharge Plan Patient Disposition: Home Provider Discharge Comment: Discharge Librium taper will be sent to outside pharmacy [facility] via outside EMR Discharge orders & Medications Prescriptions: Continued ibuprofen 800 mg tablet 800 mg PO 3XD PRN (Reason: fever or pain) amlodipine 10 mg tablet 10 mg PO DAILY chlorhexidine gluconate 0.12 % mouthwash 15 ml PO BID Discontinued amoxicillin 500 mg capsule 500 mg PO 3XD Follow up/Referrals: Milli Boateng ARNP [Primary Care Provider, Medical] Meliton Solorio MD [Physician, Family Practice] Diet/Activity/Treatments Diet: Diet as Tolerated Visit Report/Discharge Packet Stand Alone Forms: Patient Portal/API, Stroke Signs & Symptoms Discharge Data Primary Care Provider: Milli Boateng VTE Deep Vein Thrombosis/Pulmonary Embolism Present on Admission: No
[2025-01-26] MEDS: AMLODIPINE 5 MG TABLET 10 MG PO (08:58)
[2025-01-26] MEDS: SENNOSIDES 8.6 MG TABLET PO (08:58)
[2025-01-26] MEDS: APIXABAN 5 MG TABLET PO (08:58)
[2025-01-26] MEDS: CLOPIDOGREL 75 MG TABLET PO (08:58)
[2025-01-26] MEDS: MULTIVITAMIN 1 TABLET 1 TAB PO (08:59)
[2025-01-26] MEDS: FOLIC ACID 1 MG TABLET PO (08:59)
[2025-01-26] MEDS: METOPROLOL IR 50 MG TABLET 200 MG PO (08:59)
[2025-01-26] MEDS: GABAPENTIN 300 MG CAPSULE PO (08:59)
--- NOTE | 2025-01-26 10:53 | CM.DPC ---
DCP Discharge Home Per MD, pt is medically stable to d/c home today and will inquire with pt if he is agreeable with recommendation of HH as still somewhat unsteady and pt declined HH. Per OT, recommending FWW and pt agreeable and order placed and pt issued FWW but continues to decline HH at this time and states he needs to clean up my place, theres too much stuff around before he would feel comfortable with HH and feels he will improve in strength the next couple days. Per RN and EQUIPMENT OPERAT[employer]R, pt requesting call to [facility] for ride home as he does not want to ask his Dtr and will pay privately and they helped schedule taxi for 1000. Pt previously given multiple community resources for ETOH and supportive services. Nely Gomez MSW
--- NOTE | 2025-01-26 11:39 | PC.NURSE ---
Pt up ad jasson in room Denies c/\o at this time Nakul 0 MD in to see; D/C orders received Tele & SL D/C Home instructions given w/understanding. Pt escorted to main lobby to wait for taxi D/C in stable status
--- NOTE | 2025-01-26 11:55 | OT.IP.EVAL ---
Current Diagnoses Alcohol dependence with withdrawal, unspecified (01/20/25) Past Medical History Alcohol abuse Occupational Therapy Inpatient Evaluation/Re-Eval M1 PT/OT-IP Prior Functional Status Start: 01/25/25 12:55 Freq: NEEDED Status: Discharge Protocol: Document 01/25/25 14:40 [facility] (Rec: 01/25/25 15:00 [facility] Desktop) Medical Review Prior Functional Status Medical History Yes Reviewed Communication able to make needs known; slightly slow to respond to questions/instructions Mobility and Gait pt stated that he was independent with all mobilities and ambulation without AD; was still driving Activities of Daily Pt prior completely independent with all needs. Living and IADL's Social History Household Members none Living Arrangements House Number of Floors ( One Floor Floors) Number of Stairs To 6 steps B rails to enter Enter/Railing? Home Environment Standard Height Toilet,Walk in Shower Home Equipment Front Wheel Walker,Shower Seat with Backrest Additional Social Pt states neighbors can assist him. Per CM his daughter History Comment lives nearby. M2 OT-IP Current Condition Start: 01/25/25 14:29 Freq: Status: Discharge Protocol: Document 01/25/25 14:40 [facility] (Rec: 01/25/25 15:00 [facility] Desktop) Occupational Therapy Current Condition Current Condition Evaluation Date 01/25/25 Treatment Diagnosis ETOH Withdrawal Diagnosis Onset Date 01/20/25 M3 OT- IP Subjective and Pain Start: 01/25/25 14:29 Freq: Status: Discharge Protocol: Document 01/26/25 08:50 [facility] (Rec: 01/26/25 11:54 [facility] Desktop) OT- Subjective Occupational Therapy Visit Type Type Treatment Note Visit Start Time 08:50 Visit Stop Time 09:45 Occupational Therapy Visit Comments Patient Comments Pt states does not have the FWW anymore as he gave it away. Able to request order from for tall FWW. Patient/Caregiver TO go home. Goals OT Pain Assessment Pain When Pain Assessed At Rest Pain Present Pain Present Denied Pain M4 OT- IP ADL's Start: 01/25/25 14:29 Freq: Status: Discharge Protocol: Document 01/26/25 08:50 [facility] (Rec: 01/26/25 11:54 [facility] Desktop) OT ADL-Grooming General Evaluation Grooming Ability Independent OT ADL-Oral Care General Eval Oral Care Ability Independent OT ADL-Toileting General Evaluation Toileting Ability Independent Comments OT Toileting Pt able to do with increased time. Comments OT ADL-Bathing Comments OT Bathing Comments Per chart pt showered on his own early AM. M5 OT- IP IADL's Start: 01/25/25 14:29 Freq: Status: Discharge Protocol: Document 01/25/25 14:40 [facility] (Rec: 01/25/25 15:00 [facility] Desktop) OT-Instrumental Activities of Daily Living Deficits IADL Deficits Deficits Identified Home Safety Awareness Awareness of Need Decreased Awareness for Assistance at Home Ability to Problem Able to Problem Solve Solve Emergency Situations Medication Management Medication Pt states uses a pill organizer at home. Management Comments Money Management Money Management Pt would benefit from supervision as needing time for Comments math calculations today while completing the SLUMS. Meal Preparation Meal Preparation Pt would benefit from at least supervision and assist Comments as needed. Senior Inspector Senior Inspector Pt will benefit from at least supervision due to Comments decreased dynamic balance at this time. Driving Driving Concerns Identified Regarding Safety M6 OT- IP Functional Cognition Start: 01/25/25 14:29 Freq: Status: Discharge Protocol: Document 01/26/25 08:50 [facility] (Rec: 01/26/25 11:54 [facility] Desktop) Cognitive Factors Limiting Selfcare Function Cognitive Ability Level of Alertness Alert Patient Orientation Name,Age,Birthday,Month,Date,Year,Day of Week,Place, Situation Attention Span Capable of Focused Attention,Capable of Sustained Ability Attention Ability to Follow Able to Follow Multi-Step Commands Commands Memory Description Short Term Impaired Safety Awareness Underestimates Need for Assistance Cognitive Comments Cognitive Assessment Pt thinking better today and able to help assemble the Comments tall FWW. Pt is still a little unsteady on his feet and agreed that best to use a fww for now. Pt is resistant to call his family to let them know that he is in the hospital and would benefit from assist especially with IADL needs. M7 OT- IP Mobility and Balance Start: 01/25/25 14:29 Freq: Status: Discharge Protocol: Document 01/26/25 08:50 [facility] (Rec: 01/26/25 11:54 [facility] Desktop) OT- Bed Mobility Assessment Supine to Sit Supine to Sit Assist Independent OT-Transfer Assessment Sit to and From Stand Sit to and from Independent Stand Transfers Transfer Ability Independent Technique Transfer Destination Bed,Toilet Devices Transfer Assistive Gait Belt Devices Comments Mobility Comments Pt still a little ataxic without a device but able to walk in the room on his own. Pt much safer to use a FWW this time. OT- Balance Assessment Sitting Balance and Reactions Static Sitting Normal Balance Ability Dynamic Sitting Normal Balance Ability Standing Balance and Reactions Static Standing Good Balance Ability Dynamic Standing Fair Balance Ability M8 OT- IP Objective Assessments Start: 01/25/25 14:29 Freq: Status: Discharge Protocol: Document 01/25/25 14:40 [facility] (Rec: 01/25/25 15:00 [facility] Desktop) OT Gross Range of Motion Upper Extremity Range of Motion Assessment Within Functional Limits OT Strength Upper Extremity Strength Assessment Within Functional Limits OT- Coordination Assessment Upper Extremity Finger to Nose Test Within Functional Limits OT-Muscle Tone Assessment Muscle Tone WNL Yes M9 OT- IP Assessment and Plan Start: 01/25/25 14:29 Freq: Status: Discharge Protocol: Document 01/26/25 08:50 [facility] (Rec: 01/26/25 11:54 [facility] Desktop) OT Summary Assessment and Plan Potential Rehabilitation Good Potential Analytic Complexity Moderate at Evaluation Summary OT Impairments Balance,Functional Cognition,Functional Mobility, Dressing,Toileting,Bathing,Toilet Transfers,Shower Transfers Progress Towards Progressing Toward Goals Goals Assessment Summary Pt doing some better today, but still unsteady on his feet and best to use the FWW for safety. Pt insistent that he does not want to bother his family that he is in the hospital or will benefit from assist. Issued pt a FWW. Pt states his house in cluttered and and not sure if he wants home health but would greatly benefit from it, otherwise outpt PT. Discharge Recommendations OT Discharge Home with Assistance,Home Health,Outpatient PT Recommendations Transportation Needs Private Vehicle at Discharge
== END 2025-01-26 10:00 | disposition home or self-care (01) | DRG 897 ==
LOC: ED 09:11 → AC 09:41
PROVIDERS: Family Medicine; Admitting Provider Family Medicine; Emergency Provider Emergency Medicine; Family Provider Nurse Practitioner Gerontology; PCP Nurse Practitioner Gerontology; Referring Provider Emergency Medicine; Visit Provider Family Medicine
DX: F10.239 Alcohol dependence with withdrawal, unspecified (principal); F32.A Depression, unspecified; F43.20 Adjustment disorder, unspecified; I25.10 Atherosclerotic heart disease of native coronary artery without angina pectoris; I10 Essential (primary) hypertension; K59.00 Constipation, unspecified; Y90.7 Blood alcohol level of 200-239 mg/100 ml; Z79.01 Long term (current) use of anticoagulants; Z95.5 Presence of coronary angioplasty implant and graft; Z95.2 Presence of prosthetic heart valve; Z63.4 Disappearance and death of family member
CPT/HCPCS: 36415; 80048; 80053; 80305; 80320; 80329; 82140; 83735; 85025; 93005; 93010; 96365; 96375; 96376; 97129; 97162; 97166; 97530; 97535; 99232; 99284; G0480; J1650; J2405; J2560; J3360; J3475

== ENCOUNTER 2025-03-16 09:11 | Emergency (ER) | payer MEDICARE, SELFPAY ==
[2025-03-02 11:31] VITALS: BMI 23.2
[2025-03-16] VITALS (16 sets, daily range): BP systolic 153–173; BP diastolic 81–101; PULSE 90–101; RESP 15–25; O2SAT 94–97; BMI 26.4
--- NOTE | 2025-03-16 09:12 | DI.RAD.S_ITS ---
PROCEDURE: XR CHEST 1V INDICATIONS: Possible stroke TECHNIQUE: One view of the chest was acquired. COMPARISON: [facility], CR, XR CHEST 1V, 03/01/2025, 22:23. [facility], CR, XR CHEST 1V, 12/01/2024, 9:30. FINDINGS: Surgical changes and devices: None. Lungs and pleura: Lungs are clear. No pleural effusions or pneumothorax. Mediastinum: Mediastinal contours appear normal. Heart size is normal. Bones and chest wall: No suspicious bony lesions. Overlying soft tissues appear unremarkable. IMPRESSION: No acute cardiopulmonary abnormality is seen. Dictated by: Davis Contreras M.D. on 03/16/2025 at 9:43 Approved by: Davis Contreras M.D. on 03/16/2025 at 9:44
--- NOTE | 2025-03-16 09:12 | EKG_ITS ---
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
--- NOTE | 2025-03-16 09:12 | DI.CT.S_ITS ---
PROCEDURE: CT STROKE INDICATIONS: Positive BE-FAST, Stroke symptoms TECHNIQUE: Noncontrast 4.5 mm thick angled axial sections acquired from the foramen magnum to the vertex, with coronal reformats. For radiation dose reduction, the following was used: automated exposure control, adjustment of mA and/or kV according to patient size. COMPARISON: None. FINDINGS: Image quality: Diagnostic. CSF spaces: Basal cisterns are patent. No extra-axial fluid collections. The ventricles are symmetric in size and shape. Brain: No intracranial bleeds or mass effect. There is cerebral volume loss, with resultant ventricular and sulcal prominence. There are periventricular and deep white matter chronic small vessel ischemic changes. There is intracranial internal carotid artery atherosclerosis. Skull and face: Comminuted nasal bone fracture and deviation of the nasal septum to the left. Sinuses: Visualized sinuses and mastoids are clear. IMPRESSION: No acute intracranial pathology. Comminuted nasal bone fracture with deviation of the nasal septum to the left. Findings discussed with Dr. Ribera on 03/16/2025 at 9:28 a.m. This study fulfills neurological imaging criteria for inclusion or exclusion of acute stroke therapies based on available published neurological guidelines. Dictated by: Davis Contreras M.D. on 03/16/2025 at 9:26 Approved by: Davis Contreras M.D. on 03/16/2025 at 9:30
--- NOTE | 2025-03-16 09:12 | DI.CT.S_ITS ---
PROCEDURE: CT ANGIO HEAD AND NECK INDICATIONS: Fall on thinners uneven pupils TECHNIQUE: After the administration of intravenous contrast, 1 mm thick sections acquired from the aortic arch through the [place] of [place]. 3-dimensional veowulz-xiujhxmfu-kodalyvcbh (MIP) and/or volume rendering reformats were acquired of the central intracranial vasculature and neck separately. For radiation dose reduction, the following was used: automated exposure control, adjustment of mA and/or kV according to patient size. COMPARISON: None. FINDINGS: Image quality: Diagnostic. Cerebral CT Angiogram: Internal carotid arteries: No acute findings. Dense bilateral cavernous carotid and supraclinoid carotid calcifications. Moderate right supraclinoid carotid stenosis. No occlusion. No aneurysm. Anterior cerebral arteries: Unremarkable. No significant stenosis. No occlusion. No aneurysm. Middle cerebral arteries: Unremarkable. No significant stenosis. No occlusion. No aneurysm. Posterior cerebral arteries: Unremarkable. No significant stenosis. No occlusion. No aneurysm. Basilar artery: Unremarkable. No significant stenosis. No occlusion. No aneurysm. Vertebral arteries: Unremarkable as visualized. Dural venous sinuses: Unremarkable given phase of enhancement. Other: Arterial phase appearance of the brain parenchyma is unremarkable. Note is made of multiple periapical lucencies involving mandibular and maxillary teeth. Neck CT Angiogram: Internal carotid arteries: Suspect high-grade origin stenosis of the carotid bulb/proximal left internal carotid artery, 95% or greater. Reference axial image 265 of series 5. Calcified proximal right internal carotid artery stenosis may be 70%. Common carotid arteries: Unremarkable. No significant stenosis. No dissection or occlusion. External carotid arteries: Unremarkable. No occlusion. Vertebral arteries: Unremarkable. No significant stenosis. No dissection or occlusion. Aortic Arch and Mediastinum: Partially visualized aortic arch unremarkable without evidence of aneurysm. Origins of the great vessels unremarkable. Other: Arterial phase soft tissues of the neck and chest are unremarkable. Imaging included bone reconstruction imaging of the wall cervical spine in this patient with trauma. There is no acute fracture or dislocation. There is cervical spondylosis. IMPRESSION: Intracranial circulation demonstrates a moderate left supraclinoid carotid calcified stenosis. No large vessel occlusions and no focal filling defects. Suspect high-grade proximal left internal carotid artery stenosis, potentially 95% or greater. A proximal right internal carotid artery stenosis may be 70%. Poor dentition with multiple periapical lucencies. No cervical fracture or dislocation. Comment: Recommend brain MRI if suspect acute stroke. Recommend carotid duplex ultrasound for further evaluation of the severity of the bilateral internal carotid artery stenoses. Any quantitative measurements of stenosis were performed using NASCET criteria. Dictated by: Sriram Cash M.D. on 03/16/2025 at 9:51 Approved by: Sriram Cash M.D. on 03/16/2025 at 10:02
--- NOTE | 2025-03-16 09:32 | DI.CT.S_ITS ---
PROCEDURE: CT CHEST ABD PEL W CON INDICATIONS: fall TECHNIQUE: After the administration of intravenous contrast, 5 mm thick sections acquired from the lung apices to the symphysis. 2.5 mm thick coronal and sagittal reformats were acquired. Additional 7 mm thick coronal maximum intensity projection (MIP) reformats acquired through the lungs. Optional 10-minute delayed imaging may be performed from the kidneys to the bladder. For radiation dose reduction, the following was used: automated exposure control, adjustment of mA and/or kV according to patient size. COMPARISON: None. FINDINGS: Image quality: Diagnostic. CHEST: Lower Neck: No enlarged lymph nodes. Thyroid: No thyroid nodules which require sonographic evaluation. Axillae: No enlarged lymph nodes. Chest Wall: No subcutaneous gas. Lungs and Pleura: No pulmonary contusions or lacerations. No acute airspace opacities. No pneumothorax or hemothorax. Mediastinum: No mediastinal hematomas. Heart size is normal. No pericardial effusion. Thoracic aorta and pulmonary arteries demonstrate normal size and enhancement. No mediastinal or hilar adenopathy. Esophagus is normal in caliber. No hiatal hernia. Prosthetic aortic valve. Three-vessel stents and atrial occlusion device. Incidental finding of a subsegmental pulmonary embolus in the medial right lower lobe (series 2, image 82). ABDOMEN: Liver: No lacerations. Cirrhosis. Single phase contrast evaluation is suboptimal for detection of hepatocellular carcinoma. No large mass identified. Patent portal vein. Gallbladder: Cholelithiasis without wall thickening or adjacent fat stranding to suggest acute cholecystitis. Biliary ducts: No biliary dilation. Pancreas: Homogenous enhancement. Spleen: Homogenous enhancement without laceration or hematoma. Adrenal Glands: Symmetric enhancement. Kidneys and Ureters: Symmetric enhancement. No hydronephrosis. No solid mass. No complex renal cystic lesion which requires follow up. Stomach and Bowel: Normal colonic caliber, without significant wall thickening. Colonic diverticulosis without evidence of diverticulitis. Peritoneum: No abnormal intraperitoneal fluid. No free air. Ventral Wall: No hernia. Abdominal Nodes: No retroperitoneal or mesenteric adenopathy by size criteria. Vessels: Aorta and inferior vena cava are normal in size. PELVIS: Pelvic Organs: Unremarkable. Bladder: Normal thickness. Pelvic Nodes: No enlarged lymph nodes. Miscellaneous: No inguinal hernias are seen. Bones: Pelvic ring and hip joints appear intact. No acute, displaced rib fractures. Grade 2 anterolisthesis L4 on L5 due to pars defects. Chronic, displaced right anterior 6th, 5th, 4th rib fractures. IMPRESSION: Incidental finding of a subsegmental pulmonary embolus in the medial right lower lobe, without evidence of infarct or heart strain. No evidence of acute traumatic injury. Cirrhosis. Single phase contrast evaluation is suboptimal for detection of hepatocellular carcinoma. No large mass identified. Patent portal vein. HCC screening is recommended. Grade 2 anterolisthesis of L4 on L5 due to pars defects. Recommend outpatient spine specialists as findings may represent dynamic instability. Dictated by: Davis Contreras M.D. on 03/16/2025 at 10:58 Approved by: Davis Contreras M.D. on 03/16/2025 at 11:03
--- NOTE | 2025-03-16 09:32 | DI.CT.S_ITS ---
PROCEDURE: CT FACIAL BONES WO CON INDICATIONS: fall, trauma TECHNIQUE: Noncontrast 2.5 mm thick axial images acquired from the mandible through the frontal sinuses, with coronal and sagittal reformatting. For radiation dose reduction, the following was used: automated exposure control, adjustment of mA and/or kV according to patient size. COMPARISON: None. FINDINGS: Image quality: Excellent. Bones and teeth: Comminuted nasal bone fracture. A 4 mm fragment of the nasal bone is displaced by 9 mm along the anterior margin (series 4, image 65). There is a fracture of the nasal septum, with leftward deviation. Extensive dental caries, with periapical abscesses noted of the maxillary and mandibular molars. Sinuses: Paranasal sinuses are aerated, without fluid levels, mucosal thickening, or mucoceles. Mastoid air cells are aerated. Soft tissues: No edema, masses, or fluid collections. No enlarged lymph nodes. No soft tissue lacerations or debris. Vascular: Visualized vascular structures appear normal in the absence of contrast. Bony vascular foramina and canals are intact. IMPRESSION: Comminuted nasal bone fracture. Fracture of the nasal septum, with leftward deviation. Extensive periapical abscesses. Ended not referral is recommended. Dictated by: Davis Contreras M.D. on 03/16/2025 at 10:54 Approved by: Davis Contreras M.D. on 03/16/2025 at 10:58
[2025-03-16 09:44] LABS: Add Manual Diff / Slide Review NO; Hematocrit 33.1 % (41-53); Hemoglobin 11.0 g/dL (13.5-17.5); Lymphocytes Absolute Auto 1100 /uL (1100-4500); Mean Corpuscular HGB Conc 33.3 % (30-36); Mean Corpuscular Hemoglobin 29.9 PG (26-34); Mean Corpuscular Volume 89.8 fL (80-100); Platelet Count 103 X10^3/uL (150-400)
[2025-03-16 09:52] LABS: INR 1.1 (0.9-1.3); Prothrombin Time 12.8 SECONDS (9.4-12.5)
[2025-03-16 09:54] LABS: PTT Partial Thromboplastin Tim 26 SECONDS (25.1-36.5)
[2025-03-16 09:56] LABS: Alanine Aminotransferase 53 IU/L (<50); Albumin 4.5 g/dL (3.5-5.0); Albumin Globulin Ratio 1.3 (1.0-2.8); Alkaline Phosphatase 100 U/L (38-126); Blood Urea Nitrogen 16 mg/dL (9-20); Calcium 8.7 mg/dL (8.4-10.2); Carbon Dioxide 18 mmol/L (22-32); Chloride 104 mmol/L (98-107); Creatine Kinase 667 U/L (55-170); Estimated Glomerular Filt Rate > 60 mL/min (>60); Globulin 3.6 g/dL (1.7-4.1); Glucose 87 mg/dL (70-99); HEMOLYSIS < 15 (0-50); Potassium 3.8 mmol/L (3.4-5.1); Sodium 140 mmol/L (137-145); Total Protein 8.1 g/dL (6.3-8.2)
[2025-03-16 09:58] LABS: Ethanol (ETOH) 118 mg/dL (<10)
--- NOTE | 2025-03-16 09:59 | ED_ITS ---
HPI - General Adult General Chief complaint: Trauma Stated complaint: Fall, Stroke alert, + thinners Time Seen by Provider: 03/16/25 09:17 History of Present Illness HPI narrative: PMHx significant for chronic alcoholism with withdrawal, subdural hematoma, CAD s/p 3 stents in 2024, HTN, Afib with RVR on ASA, s/p TAVR and watchman procedure Pt presents to the ER feeling pretty lousy after a fall yesterday (unknown time). Patient reports slipping on his step and falling face-first into the dirt. He lost consciousness briefly. Since the fall, he has been experiencing an extreme headache and neck pain. He had a couple episodes of nausea and vomiting yesterday after waking up. The patient denies chest pain, abdominal pain, or diarrhea. Hx of chronic alcoholism with withdrawals. The patient reports drinking alcohol yesterday, though he is unsure of the time of last consumption. He typically consumes a fifth of alcohol daily. 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 He lives alone. The patient is currently taking aspirin 81mg daily and was previously on Eliquis, which was discontinued after his Watchman placement. He denies use of recreational drugs. Related Data Home Medications ?Medication ?Instructions ?Recorded ?Confirmed amlodipine 10 mg tablet 10 mg PO DAILY 01/20/2502/11 ibuprofen 800 mg tablet 800 mg PO 3XD PRN fever or p ain 01/20/25 03/02/25 atorvastatin 80 mg tablet 80 mg PO DAILY 03/02/2502/11 clopidogrel 75 mg tablet 75 mg PO DAILY 03/02/2502/11 ezetimibe 10 mg tablet 10 mg PO DAILY 03/02/2502/11 gabapentin 300 mg capsule 300 mg PO 3XD 03/02/2503/02 hydromorphone 2 mg tablet mg PO PRN pain 03/02/25 metoprolol succinate 25 mg 25 mg PO DAILY 03/02/25 tablet,extended release 24 hr tizanidine 4 mg tablet 4 mg PO 3XD 03/02/25 5 Previous Rx's ?Medication ?Instructions ?Recorded clonidine HCl 0.1 mg tablet 0.2 mg (2 x 0.1 mg) PO BID #30 tabs 03/06/25 metoprolol succinate 200 mg 50 mg (1/4 x 200 mg) PO DA MADDY #30 03/06/25 tablet,extended release 24 hr tabs Allergies Allergy/AdvReac Type Severity Reaction Status Date / Time caffeine (CAFFEINE) Allergy Unknown RASH, FEVER Verified 03/01/25 19:13 codeine (CODEINE) Allergy Unknown RASH Verified 03/01/25 19:13 Review of Systems Review of Systems Narrative: As noted above Patient History Medical History Mixed hyperlipidemia Paroxysmal atrial fibrillation Coronary artery disease Essential hypertension Alcohol withdrawal seizure Subdural hematoma Alcohol abuse Surgical History Status post coronary artery stent placement Status post aortic valve replacement Social History household members: none alcohol intake: current alcohol intake frequency: 3 or more drinks per day Alcohol type: hard liquor Exam Narrative Exam Narrative: VS as noted above Focused physical exam as follows: General: Well developed, well nourished, no acute distress HEENT: pink palpebral conjunctiva, anicteric sclera, TERRY, moist mucous membranes, no JVD, no cervical lymphadenopathy; moderate swelling to the nasal bridge, tender to palpation; no active epistaxis Lungs: no respiratory distress, clear to auscultation without wheezes or crackles; equal breath sounds Heart: normal rate, regular rhythm, no appreciable murmurs Abdomen: soft, nontender, no rebound or rigidity Musculoskeletal: Mild tenderness over the C, T and Lspine but no step offs, no pedal edema; nontender over the upper or lower extremities Skin: pink, warm; no rashes Neuro: ?AAOx3, GCS 15, strength and sensation intact Psyche: no SI/HI, normal affect Initial Vital Signs Initial Vital Signs: Vital Signs Pulse Rate 96 H 03/16/25 09:22 Pulse Oximetry 96 03/16/25 09:22 Course Orders Ordered: Discontinued Medications Acetaminophen (Acetaminophen 325 Mg Tablet) 650 mg PO Q6H PRN PRN Reason: Fever/Mild Pain (1-3) Gabapentin (Gabapentin 300 Mg Capsule) 300 mg PO TID SALLIE Stop: 03/19/25 14:59 Hydromorphone HCl (Hydromorphone Hcl 0.5 Mg/0.5 Ml Syringe) 0.5 mg IV NOW ONE Stop: 03/16/25 12:08 Last Admin: 03/16/25 12:29 Dose: 0.5 mg Documented By: MONSERRAT Hydromorphone HCl (Hydromorphone Hcl 0.5 Mg/0.5 Ml Syringe) 0.5 mg IV NOW ONE Stop: 03/16/25 16:43 Last Admin: 03/16/25 16:47 Dose: 0.5 mg Documented By: MONSERRAT Sodium Chloride (Normal Saline 0.9%) 1,000 mls @ 1,000 mls/hr IV BOLUS ONE Stop: 03/16/25 13:43 Last Admin: 03/16/25 16:42 Dose: Not Given Documented By: MONSERRAT Sodium Chloride (Normal Saline 0.9%) 1,000 mls @ 125 mls/hr IV CONT SALLIE Last Admin: 03/16/25 12:51 Dose: 125 mls/hr Documented By: MONSERRAT Lorazepam (Lorazepam 2 Mg/Ml Inj) 0 mg IV CIWAPRN PRN; Protocol PRN Reason: Alcohol Withdrawal Last Admin: 03/16/25 09:47 Dose: 2 mg Documented By: MARTIN Lorazepam (Lorazepam 1 Mg Tablet) 0 mg PO CIWAPRN PRN; Protocol PRN Reason: Alcohol Withdrawal Lorazepam (Lorazepam 2 Mg/Ml Inj) 0 mg IV CIWAPRN PRN; Protocol PRN Reason: Alcohol Withdrawal Lorazepam (Lorazepam 1 Mg Tablet) 0 mg PO CIWAPRN PRN; Protocol PRN Reason: Alcohol Withdrawal Lorazepam (Lorazepam 0.5 Mg Tablet) 1 mg PO NOW ONE Stop: 03/16/25 16:54 Last Admin: 03/16/25 16:55 Dose: 1 mg Documented By: MONSERRAT Multivitamins (Multivitamin 1 Tablet) 1 tab PO DAILY [facility] Multivitamins (Multivitamin 1 Tablet) 1 tab PO DAILY [facility] Naloxone HCl (Naloxone 0.4 Mg/Ml Vial) 0.2 mg IV Q2MIN PRN PRN Reason: Opiate Reversal Ondansetron HCl (Ondansetron 4 Mg/2 Ml Inj) 4 mg IV Q8HR PRN PRN Reason: Nausea And Vomiting Ondansetron HCl (Ondansetron 4 Mg/2 Ml Inj) 4 mg IV Q6HR PRN PRN Reason: Nausea And Vomiting Vital Signs Vital signs: Vital Signs - 8 hr 03/16/25 09:22 03/16/25 09:23 03/16/25 09:23 Pulse Rate 96 H 93 H Respiratory Rate 23 Blood Pressure 167/92 H Pulse Oximetry 96 97 03/16/25 09:30 03/16/25 09:30 03/16/25 09:38 Pulse Rate 96 H 95 H Respiratory Rate 25 H 18 Blood Pressure 173/94 H Pulse Oximetry 97 97 03/16/25 09:39 03/16/25 09:39 03/16/25 10:00 Pulse Rate 95 H Respiratory Rate 17 Blood Pressure 156/86 H 161/81 H Pulse Oximetry 96 03/16/25 10:00 03/16/25 10:12 03/16/25 10:27 Pulse Rate 95 H 94 H Respiratory Rate 22 18 Blood Pressure 159/84 H Pulse Oximetry 96 95 03/16/25 10:27 03/16/25 10:30 03/16/25 10:30 Pulse Rate 91 H 90 Respiratory Rate 15 Blood Pressure 154/83 H Pulse Oximetry 95 94 03/16/25 11:00 03/16/25 11:00 03/16/25 11:30 Pulse Rate 97 H Respiratory Rate 18 Blood Pressure 154/86 H 164/87 H Pulse Oximetry 97 03/16/25 11:30 03/16/25 12:00 03/16/25 12:00 Pulse Rate 99 H 97 H Respiratory Rate 21 Blood Pressure 153/84 H Pulse Oximetry 97 97 03/16/25 12:34 03/16/25 12:36 03/16/25 16:40 Pulse Rate 101 H 101 H 94 H Respiratory Rate 18 19 18 Blood Pressure 155/84 H 156/84 H Pulse Oximetry 96 95 97 Medical Decision Making Lab Data 03/16/25 09:38 03/16/25 09:38 Labs: Lab Results 03/16/25 03/16/25 03/16/25 Range/Units 09:24 09:38 16:10 WBC 6.5 (4.5-11.0) X10^3/uL RBC 3.68 L (4.5-5.9) X10^6/uL Hgb 11.0 L (13.5-17.5) g/dL Hct 33.1 L (41-53) % MCV 89.8 (80-100) fL MCH 29.9 (26-34) PG MCHC 33.3 (30-36) % RDW 18.9 H (11.6-14.8) % Plt Count 103 L (150-400) X10^3/uL Neut % (Auto) 73.9 (50-75) % Lymph % (Auto) 17.0 L (25-40) % [place] % (Auto) 8.0 (3-14) % Eos % (Auto) 0.1 L (2-4) % Baso % (Auto) 1.0 (0-2) % Neut # (Auto) 4800 (3210-8714) /uL Lymph # (Auto) 1100 (6144-3627) /uL [place] # (Auto) 500 (0-900) /uL Eos # (Auto) 0 (0-450) /uL Baso # (Auto) 100 (0-100) /uL PT 12.8 H (9.4-12.5) SECONDS INR 1.1 (0.9-1.3) APTT 26 (25.1-36.5) SECONDS Sodium 140 (137-145) mmol/L Potassium 3.8 (3.4-5.1) mmol/L Chloride 104 (98-107) mmol/L Carbon Dioxide 18 L (22-32) mmol/L BUN 16 (9-20) mg/dL Creatinine 0.74 (0.66-1.25) mg/dL Estimated GFR > 60 (>60) mL/min BUN/Creatinine Ratio 21.6 (6-22) Glucose 87 (70-99) mg/dL POC Whole Bld Glucose 91 (70-99) mg/dL Calcium 8.7 (8.4-10.2) mg/dL Total Bilirubin 1.5 H (0.2-1.3) mg/dL AST 92 H (17-59) IU/L ALT 53 H (<50) IU/L Alkaline Phosphatase 100 (38-126) U/L Total Creatine Kinase 667 H (55-170) U/L Troponin I 0.034 (0.01-0.034) ng/mL Total Protein 8.1 (6.3-8.2) g/dL Albumin 4.5 (3.5-5.0) g/dL Globulin 3.6 (1.7-4.1) g/dL Albumin/Globulin Ratio 1.3 (1.0-2.8) Urine RBC None seen (0-5/HPF) Urine WBC None seen (0-5/HPF) Ur Squamous Epith Cells None seen (0-5/HPF) Urine Bacteria None seen (None) Ur Culture Indicated? Cult not indicated Vol Urine Centrifuged 10ml (spun) U Opiates 300ng/mL cut Negative (Negative) Ur Oxycodone Screen Negative (Negative) Urine Methadone Screen Negative (Negative) Ur Barbiturates Screen Positive H (Negative) U Tricyclic Antidepress Negative (Negative) Ur Phencyclidine Scrn Negative (Negative) Ur Amphetamines Screen Negative (Negative) U Methamphetamines Scrn Negative (Negative) Ur MDMA Scrn (Ecstasy) Negative (Negative) U Benzodiazepines Scrn Positive H (Negative) Urine Cocaine Screen Negative (Negative) U Marijuana (THC) Screen Negative (Negative) Urine pH Normal (Normal) Urine Specific [place] Normal (Normal) Ethyl Alcohol 118 H (<10) mg/dL Ur Creatinine Normal (Normal) Point of Care Testing Glucose POC 91 Urine Dip Bedside Urine Glucose Negative Bedside Urine Bilirubin - Negative Bedside Urine Ketone +++ 80 Urine Specific [place] 1.010 Bedside Urine Occult Blood + Bedside Urine pH 6 Bedside Urine Protein + 30 Bedside Urine Urobilinogen +/- 1mg Bedside Urine Nitrite - Negative Bedside Urine Leukocytes - Negative Esterase Point of care testing: Point of Care Testing Glucose POC 91 Urine Dip Bedside Urine Glucose Negative Bedside Urine Bilirubin - Negative Bedside Urine Ketone +++ 80 Urine Specific [place] 1.010 Bedside Urine Occult Blood + Bedside Urine pH 6 Bedside Urine Protein + 30 Bedside Urine Urobilinogen +/- 1mg Bedside Urine Nitrite - Negative Bedside Urine Leukocytes - Negative Esterase MDM Narrative Medical decision making narrative: HPI, PMHx, PSHx, Medication list, Allergies, ROS and Focused exam were reviewed above. ?Differential diagnosis as noted below. ?Social determinants affecting care considered. ?All of these were taken into consideration warranting above listed work up. ?Consultations as deemed necessary were documented below (if listed). Labs (if ordered and noted) were independently reviewed by me. Imaging studies (if ordered and noted) were independently reviewed by me EKG (if noted) was independently reviewed by me External documents (if reviewed) are documented above Initial VS noted above. ? Differential diagnosis considered include (but not limited to) the following: CVA/TIA, intracranial bleed, concussion, facial fracture, spine fracture, alcohol withdrawal seizure, other seizure, dehydration, ACS, cardiac dysrhythmia, electrolyte imbalance, liver or kidney failure, electrolyte imbalance, adverse effect or withdrawal from illicit drug/ETOH, pancreatitis Code Stroke called LEARNING DISABILITIES SPECIALIST due to reported unequal pupils, alcohol consumption - pt sent to CT immediately on arrival after his VS were noted to be normal and had GCS of 15. Ccollar was kept in place. Pt interviewed and examined after return from CT. NIHSS zero. Unsure of last known well. Not an TNKase candidate. PT kept in Ccollar until after CT Cspine reviewed. CIWA protocol initiated. 0955 - Bedside EKG showed NSR @ 94; RBBB; nonspecific STTW changes; QTc 490 Pt with complaints of neck pain, back pain and has a reported fall yesterday. Will add CT face and CT chest/abd/pelvis trauma protocol. See results below CT head: IMPRESSION: No acute intracranial pathology. Comminuted nasal bone fracture with deviation of the nasal septum to the left. CXR: IMPRESSION: No acute cardiopulmonary abnormality is seen. CTA head and neck: IMPRESSION: Intracranial circulation demonstrates a moderate left supraclinoid carotid calcified stenosis. No large vessel occlusions and no focal filling defects. Suspect high-grade proximal left internal carotid artery stenosis, potentially 95% or greater. A proximal right internal carotid artery stenosis may be 70%. Poor dentition with multiple periapical lucencies. No cervical fracture or dislocation. Ativan given for elevated CIWA score @ 16 then down to 12. CT face: IMPRESSION: Comminuted nasal bone fracture. Fracture of the nasal septum, with leftward deviation. Extensive periapical abscesses. CT chest/abd/pelvis with trauma: IMPRESSION: Incidental finding of a subsegmental pulmonary embolus in the medial right lower lobe, without evidence of infarct or heart strain. No evidence of acute traumatic injury. Cirrhosis. Single phase contrast evaluation is suboptimal for detection of hepatocellular carcinoma. No large mass identified. Patent portal vein. HCC screening is recommended. Grade 2 anterolisthesis of L4 on L5 due to pars defects. Recommend outpatient spine specialists as findings may represent dynamic instability. Pt with PE noted incidentally (subsegemental) on the RLL. Pt at very high risk of fall and bleed if on thinners considering alcoholism. Discussed case with Dr. Tauxe - accepts for admission here to the ICU. He did not feel IVC filter was indicated at this time. After examining pt, he advised that pt should be transferred to higher level of care with ICU services, ENT, pulmonology and cardiology services. He did not feel comfortable with admission to our ICU. Called nearby facilities. Received call back from and spoke to Dr. Mata (hospitalist) who accepts pt; we agreed to hold off on anticoagulation at this time. Dilaudid given for pain. EMS here for transport. Discharge Plan Departure Patient Disposition: Admitted As Inpatient Clinical Impression: Alcohol abuse, Fracture of nasal bone, Fracture closed, nasal bone, Fall, Back pain, Alcohol withdrawal, Pulmonary embolism, Hx of coronary artery disease
[2025-03-16 10:08] LABS: Troponin I 0.034 ng/mL (0.01-0.034)
--- NOTE | 2025-03-16 12:41 | CM.IDA ---
Addendum entered by Lexis Chacko 03/16/25 16:25: Patient has been accepted at [facility] for higher level of care to address Pulmonary Embolism, ETOH withdrawals and nasal bone fx. RN to notify patient's daughter of transfer. [facility] set up for transfer to this afternoon. Lexis Chacko, [facility] Original Note: Initial DCP Assessment Note Patient is 64 y/o male who presents to ED via EMS due to concern for GLF yesterday and concern for increasing headache and neck pain. Patient presents with concern for nausea and vomiting as well, patient has hx of ETOH use, states his last drink was yesterday. Patient had similar presentation to on 03/02/25 and was admitted for ETOH withdrawals and discharged to [facility] in[facility] rehab on 03/06/25. Patient's PCP is Dr. Solorio, Patient has [employer] insurance. ELECTROMEDICAL EQUIPMENT REPAIRER enters room to meet with patient, patient presents as A/Ox4, patient endorses he fell yesterday and called 911. Patient resides in [place] alone and patient's daughter Bigg lives near by. Patient states that his daughter has plans to be on vacation this week. Patient states that he is reliant on others for transportation as he is unable to operate his vehicle. Patient endorses that he has men from his zoroastrian group as supports. Patient states his last drink was yesterday afternoon and he drank 1/5 of whiskey. Patient endorses he relapsed 4-5 months ago after being sober for 7 years. Patient endorses bad experience with AA and hx of going to [facility] for outpatient [facility] tx. Patient's BAL upon arrival was 118. Patient's most recent CIWA is 8. ELECTROMEDICAL EQUIPMENT REPAIRER asks about patient's recent [facility] rehab stay at [facility] rehab, patient endorses that he found the staff to be verbally abusive and aggressive and states that he would not return there. Patient states he only stayed at the facility for 4 days. Patient has hx of going to [facility], [facility] and [facility] for detox and Inpt. rehab. Patient endorses interest in going to [facility] for detox in [place]. Patient was admitted to the ICU by Dr. Solorio due to concern for nasal bone fracture and ETOH abuse. Per further conversation with patient's nurse patient may be transferred for higher level of care. Plan: admission to ICU vs. transfer to higher level of care. ELECTROMEDICAL EQUIPMENT REPAIRER to f/u with POC. At this time patient is interested in detox placement upon medical clearance THAIS Ferguson Discharge Planning/Care Management CM Discharge Assessment Start: 03/16/25 11:59 Freq: Status: Active Protocol: Document 03/16/25 12:28 LN (Rec: 03/16/25 12:35 LN [id number]) Discharge Planning Assessment Assigned Discharge THAIS [employer] Supervisor DPOA/Assigned Daughter- Bigg Designee Name Contact Information [phone] Advance Directives? Yes: POLST Advance Directives Yes on File History Provided By Patient,Medical Record Has Patient been Yes admitted in last 30 days? Comment 03/02/25-03/06/25 Prior Living House Arrangements Household Members none Type of Relies on Others transporation used prior to admit Comment Patient states is truck is in need of repair and cannot transport himself, per last assessment patient has hx of ignition interlock device and patient has been unable to operate car. Independent with ADL Yes 's Is patient alert and Yes oriented? Patient/Family Drug/Alcohol Rehab Preference Comment Patient endorses preference to go to [facility] for detox. Transportation taxi or patient's daughter Arrangement Review Status In Process
[2025-03-16] MEDS: SODIUM CHLORIDE 0.9% 1,000 ML 125 ML IV (12:51)
--- NOTE | 2025-03-16 13:38 | PC.NURSE ---
Hospital Call List for Patient Transfer 1300- Harry: CORRESPONDENCE REVIEW CLERK did speak with Fer, patient on wait list, was stated [facility] 12 1310- [facility]: CORRESPONDENCE REVIEW CLERK did speak with Toya, patient on wait list, was stated they have no ICU beds 1326- Verena Cooper: spoke with Lelo, patient on wait list
[2025-03-16 16:37] LABS: UR Morphine/Opiate cutoff 300 Negative (Negative); Ur Specific Gravity Normal (Normal); Urine MDMA Negative (Negative); Urine Methamphetamines Negative (Negative); Urine Tetrahydrocannabinol Negative (Negative)
[2025-03-16 16:38] LABS: Urine Tricyclic Antidepressant Negative (Negative)
[2025-03-16 16:43] LABS: Culture Indicated Urine Cult Not Indicated
--- NOTE | 2025-03-16 16:43 | PC.NURSE ---
patient had diaudid per provider order and the pt had no reaction noted. vs remained at baseline. no rash, or breathing s/sx. No changes to patient condition. pain reduced
== END 2025-03-16 17:27 | disposition admitted as inpatient to this hospital (09) ==
LOC: ED 11:01 → AC 11:58
PROVIDERS: Emergency Provider Emergency Medicine; Family Provider Nurse Practitioner Gerontology; PCP Family Medicine; Referring Provider Emergency Medicine
DX: S02.2XXA Fracture of nasal bones, initial encounter for closed fracture (principal); M54.9 Dorsalgia, unspecified; I26.99 Other pulmonary embolism without acute cor pulmonale; F10.139 Alcohol abuse with withdrawal, unspecified; Y90.5 Blood alcohol level of 100-119 mg/100 ml; S19.9XXA Unspecified injury of neck, initial encounter; R11.2 Nausea with vomiting, unspecified; Z79.82 Long term (current) use of aspirin; Z95.818 Presence of other cardiac implants and grafts; Z86.79 Personal history of other diseases of the circulatory system; R29.818 Other symptoms and signs involving the nervous system; W01.198A Fall on same level from slipping, tripping and stumbling with subsequent striking against other object, initial encounter
CPT/HCPCS: 36415; 70450; 70486; 70496; 70498; 71045; 71260; 74177; 80053; 80305; 80320; 81003; 81015; 82550; 82962; 84484; 85025; 85610; 85730; 93005; 96374; 96375; 96376; 99285; J1171; J2060; Q9967

== ENCOUNTER 2025-05-01 18:21 | Emergency (ER) | payer MEDICARE, SELFPAY ==
[2025-03-02 11:31] VITALS: BMI 23.2
[2025-05-01] VITALS (13 sets, daily range): BP systolic 132–170; BP diastolic 81–90; PULSE 83–94; RESP 12–18; TEMP 36.7; O2SAT 95–100; BMI 23.3
--- NOTE | 2025-05-01 18:42 | DI.CT.S_ITS ---
PROCEDURE: CT HEAD/BRAIN W CON INDICATIONS: falls, anticoagulated, altered mental status TECHNIQUE: 4.5 mm thick angled axial sections acquired from the foramen magnum to the vertex after the administration of intravenous contrast, with coronal and sagittal reformats. For radiation dose reduction, the following was used: automated exposure control, adjustment of mA and/or kV according to patient size. COMPARISON: [facility], CT, CT HEAD WITHOUT CONTRAST, 04/20/2025, 15:39. [facility], MR, MR BRAIN WITHOUT CONTRAST, 04/21/2025, 12:18. FINDINGS: Image quality: Excellent. CSF Spaces: Basal cisterns are patent. Ventricles are not dilated. There is effacement of the right lateral ventricle. Question at minimal effacement of the right crural basal cistern. Right subdural hematoma hyperdense measuring 0.9 cm, (4/27), new. Scant blood products layering at the right tentorium. Brain: Right to leftward midline shift measuring 0.3 cm, (2/20). No intracranial bleeds or masses. No abnormal intracranial enhancement. No area of hypodensity in a large vascular distribution to suggest acute infarction. Periventricular hypodensity consistent with chronic microvascular ischemic change. Age-related parenchymal loss. Skull and face: Prior nasal bone fracture. No suspicious osseous lesion. Sinuses: Visualized sinuses and mastoids are clear. IMPRESSION: 1. New right subdural hematoma measuring 0.9 cm. Moderate-sized. 2. Right to leftward midline shift measuring 0.3 cm. Effacement of the right lateral ventricle. Possible effacement of the right crural basal cistern. Comment: Findings were discussed with Ricarda Tay at 8:42 p.m. Dictated by: Heriberto Tobias M.D. on 05/01/2025 at 20:32 Approved by: Heriberto Tobias M.D. on 05/01/2025 at 20:43
--- NOTE | 2025-05-01 18:42 | DI.CT.S_ITS ---
PROCEDURE: CT TRAUMA CHEST ABDOMEN PELVIS INDICATIONS: trauma, fall, anticoagulated TECHNIQUE: MDCT axial chest images were obtained with IV contrast in the arterial phase. Maximum intensity projections and multiplanar reformats were obtained. MDCT axial abdomen and pelvis images were obtained with IV contrast in the portal venous phase. Multiplanar reformats were obtained. Optional delayed phase scanning may also be obtained Advanced techniques were used to lower patient radiation exposure. COMPARISON: [facility], CT, CT CHEST ABD PEL W CON, 03/16/2025, 10:19. FINDINGS Image Quality: Diagnostic. Chest: Lungs and pleura: No pneumothorax or hemothorax. No pulmonary lacerations. Mild dependent atelectasis. No solid pulmonary nodule requiring follow-up. Mild bronchiectasis. Vascular: No dissection or pseudoaneurysm. No incidental central pulmonary embolism. No hemopericardium. Left atrial appendage occluded device. Three-vessel coronary artery calcifications. TAVR stent. Mediastinum: No mediastinum hematoma. No suspicious mass or lymph nodes. No actionable thyroid nodules. Chest wall: Intact clavicles, scapula, and glenohumeral joint. No acute rib fractures identified. There are chronic rib fractures bilaterally. Bilateral shoulder DJD. Thoracic spine: No acute fracture or traumatic subluxation. ABDOMEN and PELVIS: Liver: No laceration or capsular hematoma. Nodular cirrhotic liver morphology. Gallbladder: Small gallstones. Biliary system: Non-dilated. Pancreas: Unremarkable. Spleen: No laceration or capsular hematoma. Adrenals: No suspicious nodules. Kidneys: No contrast extravasation or hydronephrosis. No solid masses. Vessels and lymph nodes: No pathology lymph nodes by size criteria. No dissection or aneurysm. No retroperitoneal hematoma. Portal vein is patent. Upper abdominal varices. Recannulization of the periumbilical vein. Bowel and peritoneum: No suspicious region of mesenteric hemorrhage or hemoperitoneum. No bowel obstruction. Normal appendix. Pelvis: Distended bladder. No stone. No free fluid. Pelvic ring and femurs: No pelvic ring disruption. No hip fractures. Lumbar spine: No acute fracture or traumatic subluxation. Mild T7 compression fracture. Anterolisthesis of L4 on L5 measuring 1.3 cm. Bilateral L4 pars defect. Abdominal wall: No drainable fluid collection or hematoma. Small fat containing left inguinal hernia. IMPRESSION: 1. No acute traumatic injury identified. Please see separately dictated same day CT head. 2. Cirrhotic liver morphology. No ascites. Gallstones. Dictated by: Heriberto Tobias M.D. on 05/01/2025 at 20:51 Approved by: Heriberto Tobias M.D. on 05/01/2025 at 21:05
--- NOTE | 2025-05-01 18:42 | DI.CT.S_ITS ---
PROCEDURE: CT CERVICAL SPINE WO CON INDICATIONS: trauma TECHNIQUE: Noncontrast 3 mm thick sections acquired from the skull base to the T4 level. Sagittal and coronal reformats were then constructed. For radiation dose reduction, the following was used: automated exposure control, adjustment of mA and/or kV according to patient size. COMPARISON: [facility], CT, CT CERVICAL SPINE WITHOUT CONTRAST, 04/19/2025, 13:39. [facility], CT, CT CERVICAL SPINE WO CON, 10/24/2022, 14:31. FINDINGS: Image quality: Excellent. Bones: No fractures or dislocations. Moderate to severe degenerative changes. Visualized superior ribs are intact. Soft tissues: Prevertebral soft tissues are normal in thickness. No paravertebral hematomas. No apical pneumothoraces. Dense carotid bulb atherosclerotic calcifications. IMPRESSION: No interval change appreciated. No displaced fracture or traumatic subluxation. Advanced degenerative changes in the cervical spine. Dictated by: Heriberto Tobias M.D. on 05/01/2025 at 20:44 Approved by: Heriberto Tobias M.D. on 05/01/2025 at 20:50
[2025-05-01 19:55] LABS: Add Manual Diff / Slide Review NO; Hematocrit 30.8 % (41-53); Hemoglobin 10.5 g/dL (13.5-17.5); Lymphocytes Absolute Auto 1700 /uL (1100-4500); Mean Corpuscular HGB Conc 34.0 % (30-36); Mean Corpuscular Hemoglobin 31.9 PG (26-34); Mean Corpuscular Volume 93.7 fL (80-100); Platelet Count 150 X10^3/uL (150-400)
[2025-05-01 20:09] LABS: INR 1.1 (0.9-1.3); Prothrombin Time 12.4 SECONDS (9.4-12.5)
[2025-05-01 20:13] LABS: Lactate (Lactic Acid) 4.0 mmol/L (0.7-2.1)
[2025-05-01 20:14] LABS: Alanine Aminotransferase 33 IU/L (<50); Albumin 4.8 g/dL (3.5-5.0); Albumin Globulin Ratio 1.3 (1.0-2.8); Alkaline Phosphatase 79 U/L (38-126); Blood Urea Nitrogen 11 mg/dL (9-20); Calcium 9.0 mg/dL (8.4-10.2); Carbon Dioxide 25 mmol/L (22-32); Chloride 107 mmol/L (98-107); Estimated Glomerular Filt Rate > 60 mL/min (>60); Globulin 3.8 g/dL (1.7-4.1); Glucose 97 mg/dL (70-99); HEMOLYSIS 63 (0-50); Lipase 116 U/L (23-300); Magnesium 2.1 mg/dL (1.6-2.3); Potassium 3.6 mmol/L (3.4-5.1); Sodium 145 mmol/L (137-145); Total Protein 8.6 g/dL (6.3-8.2)
[2025-05-01 20:21] LABS: PTT Partial Thromboplastin Tim 27 SECONDS (25.1-36.5)
[2025-05-01 20:26] LABS: Troponin I 0.018 ng/mL (0.01-0.034)
[2025-05-01 20:30] LABS: Ethanol (ETOH) 309 mg/dL (<10); Procalcitonin 0.078 ng/mL (<0.5)
--- NOTE | 2025-05-01 20:42 | ED.GENADULT ---
HPI - General Adult General Chief complaint: Trauma Stated complaint: intoxicated, bruises on thinners Time Seen by Provider: 05/01/25 18:24 Source: EMS Mode of arrival: EMS History of Present Illness HPI narrative: 65-year-old gentleman with a history of significant cardiac disease, post Watchman procedure no longer anticoagulated, hypertension, hyperlipidemia, alcohol use disorder with frequent falls and multiple recent admissions for alcohol withdrawal who apparently ordered a meal from door dash today. when the mail sorter and delivery came to deliver, noticed that there was a significant amount of dried blood from the door back to the bedroom with the gentleman lying on his bed with multiple bruises. He called 911 for additional help. Medics report number of alcohol bottles, significant dried blood throughout the home, patient has a GCS of 14 and smells of alcohol. Contusions and abrasions all over his body various stages of healing. He complains of chronic pain all over and a severe headache. He notes that he does remember falling maybe a day ago Related Data Home Medications ?Medication ?Instructions ?Recorded ?Confirmed amlodipine 10 mg tablet 10 mg PO DAILY 01/20/25 03/02/25 ibuprofen 800 mg tablet 800 mg PO 3XD PRN fever or pain 01/20/25 03/02/25 atorvastatin 80 mg tablet 80 mg PO DAILY 03/02/25 03/02/25 clopidogrel 75 mg tablet 75 mg PO DAILY 03/02/25 03/02/25 ezetimibe 10 mg tablet 10 mg PO DAILY 03/02/25 03/02/25 gabapentin 300 mg capsule 300 mg PO 3XD 03/02/25 03/02/25 hydromorphone 2 mg tablet mg PO PRN pain 03/02/25 metoprolol succinate 25 mg 25 mg PO DAILY 03/02/25 03/02/25 tablet,extended release 24 hr tizanidine 4 mg tablet 4 mg PO 3XD 03/02/25 03/02/25 Previous Rx's ?Medication ?Instructions ?Recorded clonidine HCl 0.1 mg tablet 0.2 mg (2 x 0.1 mg) PO BID #30 tabs 03/06/25 metoprolol succinate 200 mg 50 mg (1/4 x 200 mg) PO DAILY #30 03/06/25 tablet,extended release 24 hr tabs Allergies Allergy/AdvReac Type Severity Reaction Status Date / Time caffeine (CAFFEINE) Allergy Unknown RASH, FEVER Verified 05/01/25 18:40 codeine (CODEINE) Allergy Unknown RASH Verified 05/01/25 18:40 Review of Systems Review of Systems Narrative: Pertinent positive and negative findings as per HPI Patient History Medical History Mixed hyperlipidemia Paroxysmal atrial fibrillation Coronary artery disease Essential hypertension Alcohol withdrawal seizure Subdural hematoma Alcohol abuse Surgical History Status post coronary artery stent placement Status post aortic valve replacement Social History household members: none alcohol intake: current alcohol intake frequency: 3 or more drinks per day Alcohol type: hard liquor Exam Initial Vital Signs Initial Vital Signs: Vital Signs Pulse Rate 88 05/01/25 18:33 Pulse Oximetry 96 05/01/25 18:33 General: Chronically ill-appearing with multiple abrasions contusions and bruises of various ages HEENT: Multiple abrasions over his face, swelling over the bridge of his nose, pupils are equal and reactive and extraocular eye movement is not restricted. He has some tenderness over the right temporal area Neck: No midline cervical spine tenderness Respiratory: Lungs are clear to auscultation, no wheezing no rales no rhonchi. Full and symmetrical air movement Chest: He does complain with compression laterally of the thorax without point tenderness appreciated. No subcutaneous air. Bruises in various stages of healing over his ribs. No midline thoracic tenderness to palpation Cardiac: Regular rate and rhythm no murmurs no bruits Abdomen: Soft, nontender, no rebound or guarding, no flank pain. Multiple bruises across his abdomen and flanks appearing at least a couple of days old. Skin: Healing contusions to elbows forearms hands feet. Neurologic: GCS of 14, he is moving all extremities, awareness of events of the of the last couple of days is diminished Extremities: Large at least week old hematoma medial aspect of right thigh extending down into the calf. Abrasions contusions over the toe lose Psych: Cooperative, fluent speech, Course Orders Ordered: ED Orders 05/01/25 18:42 CT Trauma Chest Abdomen Pelvis Stat CT cervical spine wo con Stat CT head/brain w con Stat 05/01/25 18:43 Urinalysis and Microscopic Stat 05/01/25 19:49 Complete Blood Count AUTO DIFF Stat Comprehensive Metabolic Panel Stat Ethanol (ETOH) Stat Lactate (Lactic Acid) Stat Lipase Stat Magnesium Stat PTT Partial Thromboplastin Akash Stat Procalcitonin Stat Prothrombin Time INR Stat Troponin I Stat 05/01/25 20:20 Type and Screen Stat Discontinued Medications Hydromorphone HCl (Hydromorphone Hcl 0.5 Mg/0.5 Ml Syringe) 0.5 mg IV NOW ONE Stop: 05/01/25 21:24 Last Admin: 05/01/25 21:40 Dose: 0.5 mg Sodium Chloride (Normal Saline 0.9%) 1,000 mls @ 1,000 mls/hr IV BOLUS ONE Stop: 05/01/25 19:41 Last Infusion: 05/01/25 22:46 Dose: Infused Thiamine HCl 100 mg/ Sodium (Chloride) 101 mls @ 404 mls/hr IV NOW ONE Stop: 05/01/25 21:15 Last Infusion: 05/01/25 22:47 Dose: Infused Midazolam HCl (Midazolam 5 Mg/5 Ml Vial) 5 mg IV NOW ONE Stop: 05/01/25 22:21 Last Admin: 05/01/25 22:20 Dose: 5 mg Midazolam HCl (Midazolam 5 Mg/5 Ml Vial) 5 mg IV INTRA-OP ONE Stop: 05/01/25 22:25 Last Admin: 05/01/25 22:26 Dose: Not Given Phenobarbital (Phenobarbital 65 Mg/Ml Vial) 260 mg IV NOW ONE Stop: 05/01/25 21:54 Last Admin: 05/01/25 21:58 Dose: 260 mg Vital Signs Vital signs: Vital Signs - 8 hr 05/01/25 18:33 05/01/25 18:34 05/01/25 18:34 Temperature Pulse Rate 88 87 Respiratory Rate Blood Pressure 144/83 H Pulse Oximetry 96 95 Oxygen Delivery Method 05/01/25 18:40 05/01/25 19:00 05/01/25 19:07 Temperature 98.1 F Pulse Rate 88 83 Respiratory Rate 16 15 Blood Pressure 144/83 H 155/88 H Pulse Oximetry 96 97 Oxygen Delivery Method Room Air 05/01/25 19:07 05/01/25 19:30 05/01/25 20:09 Temperature Pulse Rate 86 83 84 Respiratory Rate 15 15 Blood Pressure Pulse Oximetry 100 97 Oxygen Delivery Method 05/01/25 20:10 05/01/25 20:10 05/01/25 20:38 Temperature Pulse Rate 86 89 Respiratory Rate Blood Pressure 140/81 Pulse Oximetry 100 95 Oxygen Delivery Method 05/01/25 20:40 05/01/25 20:40 05/01/25 21:00 Temperature Pulse Rate 91 H 94 H Respiratory Rate 18 Blood Pressure 156/86 H Pulse Oximetry 97 96 Oxygen Delivery Method 05/01/25 21:00 05/01/25 21:30 05/01/25 21:30 Temperature Pulse Rate 86 Respiratory Rate 12 Blood Pressure 132/83 166/88 H Pulse Oximetry 98 Oxygen Delivery Method 05/01/25 22:00 05/01/25 22:00 Temperature Pulse Rate 89 Respiratory Rate 17 Blood Pressure 170/90 H Pulse Oximetry 97 Oxygen Delivery Method Medical Decision Making Lab Data 05/01/25 19:49 05/01/25 19:49 Labs: Lab Results 05/01/25 05/01/25 05/01/25 Range/Units 19:49 20:20 21:05 WBC 5.5 (4.5-11.0) X10^3/uL RBC 3.29 L (4.5-5.9) X10^6/uL Hgb 10.5 L (13.5-17.5) g/dL Hct 30.8 L (41-53) % MCV 93.7 (80-100) fL MCH 31.9 (26-34) PG MCHC 34.0 (30-36) % RDW 19.5 H (11.6-14.8) % Plt Count 150 (150-400) X10^3/uL Neut % (Auto) 59.8 (50-75) % Lymph % (Auto) 30.7 (25-40) % [place] % (Auto) 8.0 (3-14) % Eos % (Auto) 1.2 L (2-4) % Baso % (Auto) 0.3 (0-2) % Neut # (Auto) 3300 (2831-1916) /uL Lymph # (Auto) 1700 (7476-5686) /uL [place] # (Auto) 400 (0-900) /uL Eos # (Auto) 100 (0-450) /uL Baso # (Auto) 0 (0-100) /uL PT 12.4 (9.4-12.5) SECONDS INR 1.1 (0.9-1.3) APTT 27 (25.1-36.5) SECONDS Sodium 145 (137-145) mmol/L Potassium 3.6 (3.4-5.1) mmol/L Chloride 107 (98-107) mmol/L Carbon Dioxide 25 (22-32) mmol/L BUN 11 (9-20) mg/dL Creatinine 0.77 (0.66-1.25) mg/dL Estimated GFR > 60 (>60) mL/min BUN/Creatinine Ratio 14.3 (6-22) Glucose 97 (70-99) mg/dL Lactate 4.0 H (0.7-2.1) mmol/L Calcium 9.0 (8.4-10.2) mg/dL Magnesium 2.1 (1.6-2.3) mg/dL Total Bilirubin 1.1 (0.2-1.3) mg/dL AST 83 H (17-59) IU/L ALT 33 (<50) IU/L Alkaline Phosphatase 79 (38-126) U/L Troponin I 0.018 (0.01-0.034) ng/mL Total Protein 8.6 H (6.3-8.2) g/dL Albumin 4.8 (3.5-5.0) g/dL Globulin 3.8 (1.7-4.1) g/dL Albumin/Globulin Ratio 1.3 (1.0-2.8) Lipase 116 (23-300) U/L Procalcitonin 0.078 (<0.5) ng/mL Urine Color Yellow Urine Appearance Clear Urine pH 5.5 (4.5-8.0) Ur Specific [place] <=1.005 (1.000-1.035) Urine Protein Negative (Negative) Urine Glucose (UA) Negative (Negative) g/dL Urine Ketones Negative (NEGATIVE) Urine Occult Blood Negative (Negative) Urine Nitrate Negative (Negative) Urine Bilirubin Negative (NEGATIVE) Urine Urobilinogen 0.2 (0.2) E.U./dL Ur Leukocyte Esterase Negative (NEGATIVE) Urine RBC 0-1/hpf (0-5/HPF) Urine WBC 0-1/hpf (0-5/HPF) Ur Squamous Epith Cells 0-1 /hpf (0-5/HPF) Urine Bacteria Occasional (0-1) (None) Ur Culture Indicated? Cult not indicated Vol Urine Centrifuged 10ml (spun) Ethyl Alcohol 309 H (<10) mg/dL Blood Type O Positive Antibody Screen Negative Imaging Data CT chest abdomen pelvis trauma: Radiologist's Impression: PROCEDURE: CT TRAUMA CHEST ABDOMEN PELVIS INDICATIONS: trauma, fall, anticoagulated TECHNIQUE: MDCT axial chest images were obtained with IV contrast in the arterial phase. Maximum intensity projections and multiplanar reformats were obtained. MDCT axial abdomen and pelvis images were obtained with IV contrast in the portal venous phase. Multiplanar reformats were obtained. Optional delayed phase scanning may also be obtained Advanced techniques were used to lower patient radiation exposure. COMPARISON: [facility], CT, CT CHEST ABD PEL W CON, 03/16/2025, 10:19. FINDINGS Image Quality: Diagnostic. Chest: Lungs and pleura: No pneumothorax or hemothorax. No pulmonary lacerations. Mild dependent atelectasis. No solid pulmonary nodule requiring follow-up. Mild bronchiectasis. Vascular: No dissection or pseudoaneurysm. No incidental central pulmonary embolism. No hemopericardium. Left atrial appendage occluded device. Three-vessel coronary artery calcifications. TAVR stent. Mediastinum: No mediastinum hematoma. No suspicious mass or lymph nodes. No actionable thyroid nodules. Chest wall: Intact clavicles, scapula, and glenohumeral joint. No acute rib fractures identified. There are chronic rib fractures bilaterally. Bilateral shoulder DJD. Thoracic spine: No acute fracture or traumatic subluxation. ABDOMEN and PELVIS: Liver: No laceration or capsular hematoma. Nodular cirrhotic liver morphology. Gallbladder: Small gallstones. Biliary system: Non-dilated. Pancreas: Unremarkable. Spleen: No laceration or capsular hematoma. Adrenals: No suspicious nodules. Kidneys: No contrast extravasation or hydronephrosis. No solid masses. Vessels and lymph nodes: No pathology lymph nodes by size criteria. No dissection or aneurysm. No retroperitoneal hematoma. Portal vein is patent. Upper abdominal varices. Recannulization of the periumbilical vein. Bowel and peritoneum: No suspicious region of mesenteric hemorrhage or hemoperitoneum. No bowel obstruction. Normal appendix. Pelvis: Distended bladder. No stone. No free fluid. Pelvic ring and femurs: No pelvic ring disruption. No hip fractures. Lumbar spine: No acute fracture or traumatic subluxation. Mild T7 compression fracture. Anterolisthesis of L4 on L5 measuring 1.3 cm. Bilateral L4 pars defect. Abdominal wall: No drainable fluid collection or hematoma. Small fat containing left inguinal hernia. IMPRESSION: 1. No acute traumatic injury identified. Please see separately dictated same day CT head. 2. Cirrhotic liver morphology. No ascites. Gallstones. Dictated by: Heriberto Tobias M.D. on 05/01/2025 at 20:51 CT - cervical spine: Radiologist's Impression: PROCEDURE: CT CERVICAL SPINE WO CON INDICATIONS: trauma TECHNIQUE: Noncontrast 3 mm thick sections acquired from the skull base to the T4 level. Sagittal and coronal reformats were then constructed. For radiation dose reduction, the following was used: automated exposure control, adjustment of mA and/or kV according to patient size. COMPARISON: [facility], CT, CT CERVICAL SPINE WITHOUT CONTRAST, 04/19/2025, 13:39. [facility], CT, CT CERVICAL SPINE WO CON, 10/24/2022, 14:31. FINDINGS: Image quality: Excellent. Bones: No fractures or dislocations. Moderate to severe degenerative changes. Visualized superior ribs are intact. Soft tissues: Prevertebral soft tissues are normal in thickness. No paravertebral hematomas. No apical pneumothoraces. Dense carotid bulb atherosclerotic calcifications. IMPRESSION: No interval change appreciated. No displaced fracture or traumatic subluxation. Advanced degenerative changes in the cervical spine. Dictated by: Heriberto Tobias M.D. on 05/01/2025 at 20:44 CT scan - head: Radiologist's Impression: PROCEDURE: CT HEAD/BRAIN W CON INDICATIONS: falls, anticoagulated, altered mental status TECHNIQUE: 4.5 mm thick angled axial sections acquired from the foramen magnum to the vertex after the administration of intravenous contrast, with coronal and sagittal reformats. For radiation dose reduction, the following was used: automated exposure control, adjustment of mA and/or kV according to patient size. COMPARISON: [facility], CT, CT HEAD WITHOUT CONTRAST, 04/20/2025, 15:39. [facility], MR, MR BRAIN WITHOUT CONTRAST, 04/21/2025, 12:18. FINDINGS: Image quality: Excellent. CSF Spaces: Basal cisterns are patent. Ventricles are not dilated. There is effacement of the right lateral ventricle. Question at minimal effacement of the right crural basal cistern. Right subdural hematoma hyperdense measuring 0.9 cm, (4/27), new. Scant blood products layering at the right tentorium. Brain: Right to leftward midline shift measuring 0.3 cm, (2/20). No intracranial bleeds or masses. No abnormal intracranial enhancement. No area of hypodensity in a large vascular distribution to suggest acute infarction. Periventricular hypodensity consistent with chronic microvascular ischemic change. Age-related parenchymal loss. Skull and face: Prior nasal bone fracture. No suspicious osseous lesion. Sinuses: Visualized sinuses and mastoids are clear. IMPRESSION: 1. New right subdural hematoma measuring 0.9 cm. Moderate-sized. 2. Right to leftward midline shift measuring 0.3 cm. Effacement of the right lateral ventricle. Possible effacement of the right crural basal cistern. Comment: Findings were discussed with Ricarda Tay at 8:42 p.m. Dictated by: Heriberto Tobias M.D. on 05/01/2025 at 20:32 MDM Narrative Medical decision making narrative: CC: Found down, altered, multiple bruises and contusions Complicating co-morbidities: Alcohol use disorder, coronary artery disease, hyperlipidemia, frequent falls Data collected from: patient, medics Medical records reviewed: Multiple recent admissions for alcohol and alcohol-related withdrawal seen in the emergency department on April 01 with alcohol-related issues, admissions for alcohol withdrawal October 30 of January 26 of March 06 Differential considered: Intracranial hemorrhage, severe alcohol intoxication, thrombocytopenia, severe coagulopathy, fulminant liver failure, assault, sequelae of multiple falls and blunt trauma Exam documented above, pertinent findings include: GCS of 14 does seem to be clearing slightly. He has multiple abrasions, contusions bruising and hematomas all over his body all in various stages of healing Lab Test results independently reviewed as above. Pertinent findings: CBC shows no leukocytosis, stable anemia with hemoglobin at 10.5. Platelets appropriate 150 PTT is normal, INR is normal Chemistries show appropriate electrolytes, creatinine of 0.7. Liver studies are actually improved from March of 2025 with normal bili, alk-phos and ALT. AST minimally elevated 83 which again is improved Troponin is not elevated Procalcitonin is not elevated Lipase is normal Imaging studies independently reviewed: CT scan of the head shows subdural hematoma right side 0.9 mm with [address] scan of the cervical spine shows no acute fracture CT scan of chest abdomen pelvis shows no acute intra thoracic or intra-abdominal bleeding. Cirrhosis is noted no ascites. No sequelae of trauma Consultations: Discussion with [facility] transfer center, patient is accepted to review ED, Dr. Irene Treatments: Half a mg of Dilaudid for pain control secondary to the severe headache. A L of fluid for overall dehydration 100 mg of IV thiamine To an 60 mg of IV phenobarbital for seizure prevention and alcohol withdrawal treatment Re-evaluations: Just prior to air lift arrival he began to have increasing psychomotor activity in upper extremities. He was awakened maintaining airway appeared more like rigors rather than actually seizure activity. Phenobarbital had just been initiated. As movement was becoming more intense 5 mg of IV Versed was given which seemed to resolve symptoms. Air lift arrived just as his increased myotonic activity was returning to baseline. Discussion: 65-year-old gentleman with severe alcohol use disorder and known coronary disease multiple falls recently dramatic outward appearance with impressive number of bruises in various stages of healing however platelets, hemoglobin as well as coagulation studies are seemingly at their baseline and liver studies are seemingly improved. There was no evidence of sepsis. No orthopedic injuries and no internal bleeding. GCS of 14 he does complain of headache which is treated with narcotics. Multiple previous admissions for alcohol withdrawal symptoms and concern for seizures. Given the subdural hematoma and concern for withdrawal he will be given IV phenobarb. We will plan on transfer to [facility] Emergency Department for definitive treatment and neurosurgical consultation and will contact [facility] for transfer. Patient is informed of the findings, concerns reasons for transfer. At this point he is cooperative expresses understanding and has no further questions. Critical Care Time Critical Care Time Critical Care Time: Yes Total Critical Care Time: 33 Attestation: Critical care time is separate from other billable procedures. There is a high probability of a significant, sudden or life-threatening deterioration that requires my full and direct attention, intervention and personal management. This critical care time includes consultation with family and other consulting doctors, review of records, and interpretation of data from labs, EKGs and imaging as well as managements of significant trauma with intracranial hemorrhage and transfer for neurosurgical consultation Discharge Plan Departure Patient Disposition: [facility] Clinical Impression: Acute subdural hematoma, Acute alcohol intoxication, Alcohol use disorder, Cirrhosis, alcoholic, Contusion of multiple sites Prescriptions: No Action ibuprofen 800 mg tablet 800 mg PO 3XD PRN (Reason: fever or pain) amlodipine 10 mg tablet 10 mg PO DAILY atorvastatin 80 mg tablet 80 mg PO DAILY clopidogrel 75 mg tablet 75 mg PO DAILY gabapentin 300 mg capsule 300 mg PO 3XD ezetimibe 10 mg tablet 10 mg PO DAILY hydromorphone 2 mg tablet PO PRN (Reason: pain) tizanidine 4 mg tablet 4 mg PO 3XD metoprolol succinate 25 mg tablet extended release 24 hr 25 mg PO DAILY clonidine HCl 0.1 mg Tablet 0.2 mg PO BID Qty: 30 0RF metoprolol succinate 200 mg tablet extended release 24 hr 50 mg PO DAILY Qty: 30 0RF Referrals: Meliton Solorio MD [Primary Care Provider, Family Practice]
[2025-05-01] MEDS: SODIUM CHLORIDE 0.9% 1,000 ML 1000 ML IV (20:49)
--- NOTE | 2025-05-01 21:11 | PC.NURSE ---
1100 ml clear yellow urine returned from calle insertion and urine specimen obtained and sent to lab
[2025-05-01 21:15] LABS: Appearance Urine UA CLEAR; Bilirubin Urine UA NEGATIVE (NEGATIVE); Color Urine UA YELLOW; Glucose Urine UA NEGATIVE (Negative); Ketones Urine UA NEGATIVE (NEGATIVE); Leukocyte Esterase Urine UA NEGATIVE (NEGATIVE); Nitrite Urine UA NEGATIVE (Negative); Occult Blood Urine UA NEGATIVE (Negative); Protein Urine UA NEGATIVE (Negative); Specific Gravity Urine UA <=1.005 (1.000-1.035); Urobilinogen Urine UA 0.2 E.U./dL (0.2); pH Urine UA 5.5 (4.5-8.0)
[2025-05-01 21:22] LABS: Culture Indicated Urine Cult Not Indicated
[2025-05-01 21:28] LABS: Reflexed Lactate in 2 Hours Y
[2025-05-01] MEDS: THIAMINE 100 MG in SODIUM CHLORIDE 0.9% 100 ML 404 MG IV (21:40)
--- NOTE | 2025-05-01 21:44 | PC.NURSE ---
Provider larry'd removal of cervical collar at 2100.
--- NOTE | 2025-05-01 22:00 | PC.NURSE ---
spoke with pt's daughter Bigg, with pt's permission, and updated her on pt's condition and plan of care, explained that Theresa would be here in 12 min so she will visit pt tomorrow, will update pt on daughter's plan
[2025-05-01] MEDS: MIDAZOLAM 5 MG/5 ML VIAL IV (22:20)
--- NOTE | 2025-05-01 22:25 | PC.NURSE ---
[employer] crew in room and report given, assisting with pt transfer, daughter's number given to crew in case contact is needed or for any updates. pt's shaking easing at times and then will return, pt obeying commands but then will sit up on the stretcher and when asked what he is doing he will state I don't know able to redirect pt
--- NOTE | 2025-05-01 22:48 | PC.NURSE ---
pt started having shaking in the upper limbs, and staring into space, for about 20 sec before responding verbally, shaking in limbs uncontrollable, phenobarb infusing Dr Tay in room to evaluate pt and pt medicated as ordered,
== END 2025-05-01 23:00 | disposition short-term general hospital (02) ==
PROVIDERS: Emergency Provider Emergency Medicine; Family Provider Nurse Practitioner Gerontology; PCP Family Medicine
DX: S06.5XAA Traumatic subdural hemorrhage with loss of consciousness status unknown, initial encounter (principal); K70.30 Alcoholic cirrhosis of liver without ascites; F10.129 Alcohol abuse with intoxication, unspecified; Y90.8 Blood alcohol level of 240 mg/100 ml or more; W19.XXXA Unspecified fall, initial encounter; Z79.01 Long term (current) use of anticoagulants; S50.02XA Contusion of left elbow, initial encounter; S50.01XA Contusion of right elbow, initial encounter; S50.12XA Contusion of left forearm, initial encounter; S50.11XA Contusion of right forearm, initial encounter; S60.222A Contusion of left hand, initial encounter; S60.221A Contusion of right hand, initial encounter; S90.32XA Contusion of left foot, initial encounter; S90.31XA Contusion of right foot, initial encounter; S30.11XA Contusion of abdominal wall, initial encounter
CPT/HCPCS: 36415; 70460; 71275; 72125; 74177; 80053; 80320; 81001; 83605; 83690; 83735; 84145; 84484; 85025; 85610; 85730; 86850; 86900; 86901; 96365; 96375; 99284; 99291; G0390; J1171; J2250; J2560; J7030; J7050; Q9967

== ENCOUNTER 2025-06-07 10:45 | Emergency (ER) | payer MEDICARE, SELFPAY ==
[2025-03-02 11:31] VITALS: BMI 23.2
[2025-06-07] VITALS (31 sets, daily range): BP systolic 130–175; BP diastolic 81–104; PULSE 85–102; RESP 15–27; TEMP 36.6–37.1; O2SAT 95–100; BMI 24.7
--- NOTE | 2025-06-07 10:46 | DI.CT.S_ITS ---
PROCEDURE: CT HEAD/BRAIN WO CON INDICATIONS: Fall on thinners TECHNIQUE: Noncontrast 4.5 mm thick angled axial sections acquired from the foramen magnum to the vertex, with coronal and sagittal reformats. For radiation dose reduction, the following was used: automated exposure control, adjustment of mA and/or kV according to patient size. COMPARISON: [facility], CT, CT HEAD/BRAIN W CON, 05/01/2025, 18:56. FINDINGS: Image quality: Diagnostic. CSF spaces: Basal cisterns are patent. No extra-axial fluid collections. The ventricles are symmetric in size and shape. Brain: Small mixed density right [id number] subdural hematoma decreased in size compared to May 01, 2025. The right-sided subdural hematoma measures 5 millimeters in maximum thickness. No midline shift. No intracranial mass effect. There is cerebral volume loss, with resultant ventricular and sulcal prominence. There are periventricular and deep white matter chronic small vessel ischemic changes. There is intracranial internal carotid artery and vertebral artery atherosclerosis. Skull and face: Right frontal and parietal nehemias holes placed in the interval since prior exam May 01, 2025. visualized facial bones appear intact, without suspicious lesions. Sinuses: Visualized sinuses and mastoids are clear. IMPRESSION: Small mixed-density acute/subacute right [id number] subdural hematoma. Dictated by: Tammie Phillips MD, PhD on 06/07/2025 at 11:07 Approved by: Tammie Phillips MD, PhD on 06/07/2025 at 11:10
--- NOTE | 2025-06-07 10:46 | DI.CT.S_ITS ---
PROCEDURE: CT CERVICAL SPINE WO CON INDICATIONS: fall with head strike on thinners with neck pain TECHNIQUE: Noncontrast 3 mm thick sections acquired from the skull base to the T4 level. Sagittal and coronal reformats were then constructed. For radiation dose reduction, the following was used: automated exposure control, adjustment of mA and/or kV according to patient size. COMPARISON: [facility], CT, CT CERVICAL SPINE WO CON, 05/01/2025, 18:56. FINDINGS: Image quality: Excellent. Bones: No acute fracture or dislocations. Stable chronic appearing T3 and T4 anterior column compression fractures. Visualized superior ribs are intact. Spine degenerative disc disease and facet arthropathy. Soft tissues: Prevertebral soft tissues are normal in thickness. No paravertebral hematomas. No apical pneumothoraces. Carotid atherosclerotic calcifications. IMPRESSION: No acute fracture. No acute osseous lesion. If symptoms and/or clinical suspicion for pathology persists, evaluation with MRI should be considered for further assessment. Dictated by: Tammie Phillips MD, PhD on 06/07/2025 at 11:10 Approved by: Tammie Phillips MD, PhD on 06/07/2025 at 11:16
--- NOTE | 2025-06-07 11:02 | PC.NURSE ---
This RN called patient modified trauma prior to arrival based on EMS report at 10:38. Patient arrives in soft collar with EMS and patient is taken straight to CT. This RN went with patient and held patient head neck during all transfers. This RN along with others assisted patient in log roll for provider to performed postier assessment.
--- NOTE | 2025-06-07 11:06 | EKG_ITS ---
[address] [address] Test Date: 2025-06-07 Pat Name: Gold Alaniz Department: Room: Gender: Male Claims Director: TEVIN : 1960 Requested By: Order Number: [id number] Reading MD: Simón Ashby Measurements Intervals [place] Rate: 101 P: 78 AR: 182 QRS: 71 QRSD: 134 T: 56 QT: 400 QTc: 518 Interpretive Statements Sinus tachycardia Right bundle branch block Electronically Signed On 06-07-2025 14:11:14 PST by Simón Ashby
--- NOTE | 2025-06-07 11:06 | DI.RAD.S_ITS ---
PROCEDURE: XR CHEST 1V INDICATIONS: fall, hit head, had SDH tfd [facility] April, d/c 05/23 TECHNIQUE: One view of the chest was acquired. COMPARISON: [facility], MENG, XR CHEST 1V, 03/16/2025, 9:10. [facility], CR, XR CHEST 1V, 03/01/2025, 22:23. FINDINGS: Surgical changes and devices: Prosthetic aortic valve. Coronary artery stents. Lungs and pleura: Lungs are clear. No pleural effusions or pneumothorax. Mediastinum: Mediastinal contours appear normal. Heart size is normal. Bones and chest wall: No suspicious bony lesions. Overlying soft tissues appear unremarkable. IMPRESSION: No acute cardiopulmonary abnormality is seen. Dictated by: Davis Contreras M.D. on 06/07/2025 at 11:54 Approved by: Davis Contreras M.D. on 06/07/2025 at 11:55
--- NOTE | 2025-06-07 11:12 | ED_ITS ---
HPI - Trauma General Chief Complaint: Trauma Stated Complaint: GLF, N/V Time Seen by Provider: 06/07/25 10:51 Source: patient, RN notes reviewed and old records reviewed (discharge summary [facility].) Limitations: no limitations History of Present Illness HPI narrative: 65-year-old male with a history of alcohol use, prior complicated withdrawals including seizures, prior subdural, CAD status post PCI on Plavix, AFib status post Watchman, severe aortic stenosis with TAVR on 04/06., patient had admitted for subdural hematoma had alcohol withdrawals in the hospital was managed in the ICU and hyponatremia patient was discharged home on Plavix. Patient presents today after reporting a mechanical ground level fall. Patient states he is feeling little bit dizzy prior to but tripped catching his foot on an object in his home and falling forwards. He describes a headache he states he has has a little bit of a headache since he was discharged but that has much worse after he fell and hit his head. Denies loss of consciousness. Denies any acute neck pain but states he did injure his cervical spine when he was in the hospital he states he did not have any interventions for it. He states his chest hurts a little bit, he denies any shortness of breath. Denies any nausea or vomiting currently. He notes some abdominal discomfort. He denies any loss of bowel or bladder control. No diarrhea or constipation, no dysuria urgency or frequency. He denies any new numbness or tingling in his extremities but notes he has chronic neuropathy in both legs and sometimes has tingling in his right arm. Patient states he has normal range of motion of all of his extremities. He feels much more comfortable being slightly upright and finds laying flat uncomfortable. Patient is unsure of his current medications he thinks he is taking an anticoagulants he states it is not aspirin but he is not sure what it is. He states he is former smoker, states he has not had any alcohol since his discharge from [facility]. States he sometimes uses marijuana denies any other recreational drugs, Dr. Solorio is his primary care physician. Related Data Home Medications ?Medication ?Instructions ?Recorded ?Confirmed amlodipine 10 mg tablet 10 mg PO DAILY 01/20/2502/11 ibuprofen 800 mg tablet 800 mg PO 3XD PRN fever or p ain 01/20/25 03/02/25 atorvastatin 80 mg tablet 80 mg PO DAILY 03/02/2502/11 clopidogrel 75 mg tablet 75 mg PO DAILY 03/02/2502/11 ezetimibe 10 mg tablet 10 mg PO DAILY 03/02/2502/11 gabapentin 300 mg capsule 300 mg PO 3XD 03/02/2503/02 hydromorphone 2 mg tablet mg PO PRN pain 03/02/25 metoprolol succinate 25 mg 25 mg PO DAILY 03/02/25 tablet,extended release 24 hr tizanidine 4 mg tablet 4 mg PO 3XD 03/02/25 5 Previous Rx's ?Medication ?Instructions ?Recorded clonidine HCl 0.1 mg tablet 0.2 mg (2 x 0.1 mg) PO BID #30 tabs 03/06/25 metoprolol succinate 200 mg 50 mg (1/4 x 200 mg) PO DA MADDY #30 03/06/25 tablet,extended release 24 hr tabs Allergies Allergy/AdvReac Type Severity Reaction Status Date / Time caffeine (CAFFEINE) Allergy Unknown RASH, FEVER Verified 06/07/25 11:02 codeine (CODEINE) Allergy Unknown RASH Verified 06/07/25 11:02 Review of Systems Review of Systems ROS Unobtainable: All systems reviewed & are unremarkable except as noted in HPI and below Patient History Medical History Mixed hyperlipidemia Paroxysmal atrial fibrillation Coronary artery disease Essential hypertension Alcohol withdrawal seizure Subdural hematoma Alcohol abuse Surgical History Status post coronary artery stent placement Status post aortic valve replacement Social History household members: none Smoking Status: Former smoker alcohol intake: current alcohol intake frequency: 3 or more drinks per day Alcohol type: hard liquor Exam Narrative Exam Narrative: GEN: Patient appears in mild distress. Patient is mildly confused but able to answer majority of questions appropriately. HEAD: No evidence of trauma, no raccoon/[place]yon sign. NECK: Nontender, painless range of motion, trachea midline Negative Nexus criteria, no midline line tenderness, distracting injury, altered mental status, neuro deficit, recent EtOH. EYES: PERRLA, EOMI ENT: External inspection normal, trachea is midline, TM's are normal no hemotypanum, Nares are clear, no septal hematoma, no dental or oral injury, airway is normal and with normal occlusion, No bony tenderness RESP: Chest is nontender and has symmetric movement, no ecchymosis, breath sounds are normal no crackles, wheezes or rales CVS: Heart sounds are normal, no murmur noted, No JVD. ABG/GI: Nontender, soft, normal bowel sounds, no distention, no organomegaly, pelvic rock is negative NEURO: Oriented AOx3, neuro is grossly intact, sensation and motor is normal all 4 extremities moving, cranial nerves II through XII are intact, GCS is 14 PSYCH: Normal mood and affect SKIN: Patient does have some small abrasions on his lower extremities, warm and dry, no crepitus and without decubitus, patient has small areas of ecchymosis in his anterior abdomen and chest less than 2-3 cm that appear to be greenish discoloration. BACK: No CVA tenderness, patient has tenderness along his entire thoracic and lumbar spine. Vertebral tenderness, no step-off's, no crepitus EXT: Atraumatic, hips are nontender, no pedal edema, normal color and temperature, normal range of motion of extremities with normal tendon exam, 2+ pulses in all four extremities Initial Vital Signs Initial Vital Signs: Vital Signs Pulse Rate 102 H 06/07/25 11:07 Respiratory Rate 27 H 06/07/25 11:07 Pulse Oximetry 100 06/07/25 11:07 Course Orders Ordered: ED Orders 06/07/25 10:46 CT cervical spine wo con Stat CT head/brain wo con Stat 06/07/25 11:00 Complete Blood Count AUTO DIFF Stat Comprehensive Metabolic Panel Stat Ethanol (ETOH) Stat Lactate (Lactic Acid) Stat Lipase Stat PTT Partial Thromboplastin Akash Stat Prothrombin Time INR Stat 06/07/25 11:06 XR chest 1V Stat EKG-12 Lead Stat 06/07/25 12:07 Type and Screen Stat Discontinued Medications Acetaminophen (Ofirmev) 1,000 mg in 100 mls @ 400 mls/hr IV NOW ONE Stop: 06/07/25 11:42 Last Infusion: 06/07/25 11:52 Dose: Infused Documented By: Admin: 06/07/25 11:35 Dose: 400 mls/hr Documented By: RB Sodium Chloride (Normal Saline 0.9%) 1,000 mls @ 1,000 mls/hr IV BOLUS ONE Stop: 06/07/25 12:38 Last Infusion: 06/07/25 12:47 Dose: Infused Documented By: Admin: 06/07/25 11:45 Dose: 1,000 mls/hr Documented By: MARTIN Labetalol HCl (Labetalol 20 Mg/4 Ml Syringe) 10 mg IV NOW ONE Stop: 06/07/25 12:54 Last Admin: 06/07/25 13:00 Dose: 10 mg Documented By: RB Metoclopramide HCl (Metoclopramide 10 Mg/2 Ml Inj) 10 mg IV NOW ONE Stop: 06/07/25 13:34 Last Admin: 06/07/25 13:39 Dose: 10 mg Documented By: LEON Ondansetron HCl (Ondansetron 4 Mg/2 Ml Inj) 4 mg IV NOW ONE Stop: 06/07/25 11:49 Last Admin: 06/07/25 11:52 Dose: 4 mg Documented By: MARTIN Vital Signs Vital signs: Vital Signs - 8 hr 06/07/25 11:07 06/07/25 11:09 06/07/25 11:12 Temperature 98.8 F Pulse Rate 102 H 100 H Respiratory Rate 27 H 22 Blood Pressure 138/81 138/81 Pulse Oximetry 100 100 Oxygen Delivery Method Room Air 06/07/25 11:12 06/07/25 11:20 06/07/25 11:20 Temperature Pulse Rate 101 H 102 H Respiratory Rate 27 H 22 Blood Pressure 142/84 H Pulse Oximetry 99 97 Oxygen Delivery Method 06/07/25 11:25 06/07/25 11:25 06/07/25 11:30 Temperature Pulse Rate 99 H Respiratory Rate 23 Blood Pressure 130/88 143/90 H Pulse Oximetry 100 Oxygen Delivery Method 06/07/25 11:30 06/07/25 11:35 06/07/25 11:35 Temperature 97.8 F Pulse Rate 96 H 96 H Respiratory Rate 18 19 Blood Pressure Pulse Oximetry 99 99 Oxygen Delivery Method 06/07/25 11:35 06/07/25 11:40 06/07/25 11:40 Temperature Pulse Rate 92 H Respiratory Rate 17 Blood Pressure 144/92 H 145/90 H Pulse Oximetry 97 Oxygen Delivery Method 06/07/25 11:45 06/07/25 11:45 06/07/25 11:50 Temperature Pulse Rate 90 92 H Respiratory Rate 18 16 Blood Pressure 144/92 H Pulse Oximetry 98 97 Oxygen Delivery Method 06/07/25 11:50 06/07/25 11:55 06/07/25 11:55 Temperature Pulse Rate 92 H Respiratory Rate 20 Blood Pressure 156/99 H 153/99 H Pulse Oximetry 99 Oxygen Delivery Method 06/07/25 12:00 06/07/25 12:00 06/07/25 12:05 Temperature Pulse Rate 92 H 91 H Respiratory Rate 20 19 Blood Pressure 165/98 H Pulse Oximetry 100 100 Oxygen Delivery Method 06/07/25 12:05 06/07/25 12:10 06/07/25 12:10 Temperature Pulse Rate 90 Respiratory Rate 23 Blood Pressure 161/95 H 167/99 H Pulse Oximetry 99 Oxygen Delivery Method 06/07/25 12:15 06/07/25 12:15 06/07/25 12:20 Temperature Pulse Rate 88 Respiratory Rate 15 Blood Pressure 166/96 H 165/98 H Pulse Oximetry 100 Oxygen Delivery Method 06/07/25 12:20 06/07/25 12:25 06/07/25 12:25 Temperature Pulse Rate 91 H 91 H Respiratory Rate 16 18 Blood Pressure 161/99 H Pulse Oximetry 99 98 Oxygen Delivery Method 06/07/25 12:30 06/07/25 12:30 06/07/25 12:35 Temperature Pulse Rate 90 Respiratory Rate 16 Blood Pressure 167/102 H 175/104 H Pulse Oximetry 97 Oxygen Delivery Method 06/07/25 12:35 06/07/25 12:40 06/07/25 12:40 Temperature Pulse Rate 85 94 H Respiratory Rate 23 Blood Pressure 163/102 H Pulse Oximetry 95 97 Oxygen Delivery Method 06/07/25 12:45 06/07/25 12:45 06/07/25 12:50 Temperature Pulse Rate 95 H Respiratory Rate 20 Blood Pressure 165/86 H 161/102 H Pulse Oximetry Oxygen Delivery Method 06/07/25 12:50 06/07/25 12:55 06/07/25 12:55 Temperature Pulse Rate 96 H 97 H Respiratory Rate 20 23 Blood Pressure 172/94 H Pulse Oximetry 100 99 Oxygen Delivery Method 06/07/25 13:00 06/07/25 13:00 06/07/25 13:00 Temperature Pulse Rate 98 H 99 H Respiratory Rate 21 Blood Pressure 172/97 H 172/97 H Pulse Oximetry 99 Oxygen Delivery Method 06/07/25 13:05 06/07/25 13:05 06/07/25 13:10 Temperature Pulse Rate 92 H Respiratory Rate 20 Blood Pressure 159/87 H 152/89 H Pulse Oximetry 98 Oxygen Delivery Method 06/07/25 13:10 06/07/25 13:15 06/07/25 13:15 Temperature Pulse Rate 87 86 Respiratory Rate 19 19 Blood Pressure 151/90 H Pulse Oximetry 98 98 Oxygen Delivery Method 06/07/25 13:20 06/07/25 13:20 06/07/25 13:25 Temperature Pulse Rate 88 89 Respiratory Rate 21 23 Blood Pressure 150/85 H Pulse Oximetry 98 99 Oxygen Delivery Method 06/07/25 13:25 06/07/25 13:30 06/07/25 13:35 Temperature Pulse Rate 92 H 88 Respiratory Rate 23 Blood Pressure 155/91 H 142/85 H Pulse Oximetry 99 Oxygen Delivery Method MDM - Trauma Lab Data 06/07/25 11:00 06/07/25 11:00 Labs: Lab Results 06/07/25 06/07/25 06/07/25 Range/Units 11:00 12:07 13:11 WBC 7.0 (4.5-11.0) X10^3/uL RBC 4.69 (4.5-5.9) X10^6/uL Hgb 13.6 (13.5-17.5) g/dL Hct 40.4 L (41-53) % MCV 86.1 (80-100) fL MCH 29.1 (26-34) PG MCHC 33.7 (30-36) % RDW 17.4 H (11.6-14.8) % Plt Count 153 (150-400) X10^3/uL Neut % (Auto) 85.9 H (50-75) % Lymph % (Auto) 7.6 L (25-40) % [place] % (Auto) 5.9 (3-14) % Eos % (Auto) 0.0 L (2-4) % Baso % (Auto) 0.6 (0-2) % Neut # (Auto) 6000 (7231-3266) /uL Lymph # (Auto) 500 L (9436-5851) /uL [place] # (Auto) 400 (0-900) /uL Eos # (Auto) 0 (0-450) /uL Baso # (Auto) 0 (0-100) /uL PT 13.6 H (9.4-12.5) SECONDS INR 1.2 (0.9-1.3) APTT 27 (25.1-36.5) SECONDS Sodium 140 (137-145) mmol/L Potassium 4.1 (3.4-5.1) mmol/L Chloride 104 (98-107) mmol/L Carbon Dioxide 14 L (22-32) mmol/L BUN 17 (9-20) mg/dL Creatinine 0.75 (0.66-1.25) mg/dL Estimated GFR > 60 (>60) mL/min BUN/Creatinine Ratio 22.7 H (6-22) Glucose 194 H (70-99) mg/dL Lactate 5.6 H* 1.7 (0.7-2.1) mmol/L Calcium 10.2 (8.4-10.2) mg/dL Total Bilirubin 2.4 H (0.2-1.3) mg/dL AST 45 (17-59) IU/L ALT 28 (<50) IU/L Alkaline Phosphatase 97 (38-126) U/L Total Protein 9.4 H (6.3-8.2) g/dL Albumin 5.2 H (3.5-5.0) g/dL Globulin 4.2 H (1.7-4.1) g/dL Albumin/Globulin Ratio 1.2 (1.0-2.8) Lipase 125 (23-300) U/L Ethyl Alcohol < 10 (<10) mg/dL Blood Type O Positive Antibody Screen Negative [facility] Narrative Medical decision making narrative: 65-year-old male presents with mechanical ground level fall reports recent hospitalization for subdural hematoma had a admitted on 04/2025 with a discharge on 05/23/2025 with substernal had nehemias holes for evacuation had alcohol withdrawal during his stay. He states he has not had alcohol since discharge. Patient does describe a headache that has present before but is worsened at this time. He noted a little bit dizziness before he fell but states catching his foot when he fell. States he is taking a blood thinner but he does not know what it is called. CT Cervical spine: no acute fracture no acute osseous lesions on CT cervical spine. Head CT small mixed density acute/subacute right frontal parietal temporal subdural hematoma. Chest x-ray shows no acute cardiopulmonary abnormality Labs show white count of 7, hemoglobin of 13.6 platelets are 153. INR and PTT are normal. Chemistries are appropriate except for CO2 which is 14, creatinine 0.75 glucose is 194 lactate 5.6 with a bilirubin of 2.4 otherwise LFTs are normal total protein albumin globulin are elevated. ETOH is less than 10. Patient had fluids and acetaminophen and Zofran. Has a persistent nausea received Reglan. Blood pressure was trending upwards to the 160s with a diastolic of 100 was given 10 mg of labetolol 65-year-old male with recent subdural with bur holes and evacuation, alcohol withdrawal syndrome hospitalized for several weeks discharged on 05/23/2025 with complaint of mechanical ground level fall today, increased headache notes he is still on anticoagulants which according to his discharge instructions appears to be Plavix. Patient slightly confused but otherwise neuro exam is normal. Appears to have possible acute on subacute bleed on his imaging and images pushed to [facility] and patient was accepted for transfer. Images pushed to [facility]. Allowed to [facility] coordinator for potential transfer for new intracranial bleed. Spoke with coordinator at 1220 plan for auto-accept. Spoke with ED attending at [facility] ED. Spoke with Dr. Christian Casillas, [facility] attending accepts for transfer. We will weather check for life flight but otherwise we will send ALS ground. Critical Care Time Critical Care Time Critical Care Time: Yes Total Critical Care Time: 35 Attestation: The high probability of a clinically significant, sudden or life threatening deterioration of the neurologic system(s) required my full and direct attention, intervention and personal management. The aggregate critical care time was [--] minutes. This time is in addition to time spent performing reported procedures but includes the following: [x] Data Review and interpretation [x] Patient assessment and monitoring of vital signs [x] Documentation [x] Medication orders and management Discharge Plan Departure Patient Disposition: [facility] Clinical Impression: Acute on chronic intracranial subdural hematoma, Acidosis, lactic, Fall Prescriptions: No Action ibuprofen 800 mg tablet 800 mg PO 3XD PRN (Reason: fever or pain) amlodipine 10 mg tablet 10 mg PO DAILY atorvastatin 80 mg tablet 80 mg PO DAILY clopidogrel 75 mg tablet 75 mg PO DAILY gabapentin 300 mg capsule 300 mg PO 3XD ezetimibe 10 mg tablet 10 mg PO DAILY hydromorphone 2 mg tablet PO PRN (Reason: pain) tizanidine 4 mg tablet 4 mg PO 3XD metoprolol succinate 25 mg tablet extended release 24 hr 25 mg PO DAILY clonidine HCl 0.1 mg Tablet 0.2 mg PO BID Qty: 30 0RF metoprolol succinate 200 mg tablet extended release 24 hr 50 mg PO DAILY Qty: 30 0RF Referrals: Meliton Solorio MD [Primary Care Provider, Family Practice]
[2025-06-07 11:19] LABS: INR 1.2 (0.9-1.3); Prothrombin Time 13.6 SECONDS (9.4-12.5)
[2025-06-07 11:20] LABS: Add Manual Diff / Slide Review NO; Hematocrit 40.4 % (41-53); Hemoglobin 13.6 g/dL (13.5-17.5); Lymphocytes Absolute Auto 500 /uL (1100-4500); Mean Corpuscular HGB Conc 33.7 % (30-36); Mean Corpuscular Hemoglobin 29.1 PG (26-34); Mean Corpuscular Volume 86.1 fL (80-100); Platelet Count 153 X10^3/uL (150-400)
[2025-06-07 11:21] LABS: PTT Partial Thromboplastin Tim 27 SECONDS (25.1-36.5)
[2025-06-07 11:23] LABS: Alanine Aminotransferase 28 IU/L (<50); Albumin 5.2 g/dL (3.5-5.0); Albumin Globulin Ratio 1.2 (1.0-2.8); Alkaline Phosphatase 97 U/L (38-126); Blood Urea Nitrogen 17 mg/dL (9-20); Calcium 10.2 mg/dL (8.4-10.2); Carbon Dioxide 14 mmol/L (22-32); Chloride 104 mmol/L (98-107); Estimated Glomerular Filt Rate > 60 mL/min (>60); Ethanol (ETOH) < 10 mg/dL (<10); Globulin 4.2 g/dL (1.7-4.1); Glucose 194 mg/dL (70-99); HEMOLYSIS 39 (0-50); Lipase 125 U/L (23-300); Potassium 4.1 mmol/L (3.4-5.1); Sodium 140 mmol/L (137-145); Total Protein 9.4 g/dL (6.3-8.2)
[2025-06-07 11:26] LABS: Lactate (Lactic Acid) 5.6 mmol/L (0.7-2.1)
[2025-06-07] MEDS: ACETAMINOPHEN IV 1,000 MG/100 ML VIAL 400 MG IV (11:35)
[2025-06-07] MEDS: SODIUM CHLORIDE 0.9% 1,000 ML 1000 ML IV (11:45)
[2025-06-07] MEDS: ONDANSETRON 4 MG/2 ML INJ IV (11:52)
[2025-06-07 12:49] LABS: Reflexed Lactate in 2 Hours Y
--- NOTE | 2025-06-07 12:53 | PC.NURSE ---
This RN informed Dr. Jacobo of patient blood pressure of 161/102 and provider gave this RN verbal order of 10mg of IV labetalol.
[2025-06-07] MEDS: LABETALOL 20 MG/4 ML SYRINGE 10 MG IV (13:00)
[2025-06-07] MEDS: METOCLOPRAMIDE 10 MG/2 ML INJ IV (13:39)
[2025-06-07 13:43] LABS: Lactate 2HR (Lactic Acid Rflx) 1.7 mmol/L (0.7-2.1)
== END 2025-06-07 13:45 | disposition short-term general hospital (02) ==
PROVIDERS: Emergency Provider Emergency Medicine; Family Provider Nurse Practitioner Gerontology; PCP Family Medicine
DX: S06.5X0A Traumatic subdural hemorrhage without loss of consciousness, initial encounter (principal); E87.20 Acidosis, unspecified; I48.91 Unspecified atrial fibrillation; W01.0XXA Fall on same level from slipping, tripping and stumbling without subsequent striking against object, initial encounter; Z79.02 Long term (current) use of antithrombotics/antiplatelets; Z95.818 Presence of other cardiac implants and grafts; Z95.2 Presence of prosthetic heart valve
CPT/HCPCS: 70450; 71045; 72125; 80053; 80320; 83605; 83690; 85025; 85610; 85730; 86850; 86900; 86901; 93005; 96365; 96375; 99284; 99291; G0390; J0131; J2405; J2765; J7030

== ENCOUNTER 2025-06-21 08:26 | Emergency (ER) | payer MEDICARE, SELFPAY ==
[2025-03-02 11:31] VITALS: BMI 23.2
--- NOTE | 2025-06-21 08:30 | ED.GENADULT ---
HPI - General Adult General Chief complaint: Allergic Reaction Stated complaint: allergic reaction Time Seen by Provider: 06/21/25 08:29 History of Present Illness HPI narrative: 65-year-old gentleman currently sound [facility] with a history of hypertension, hyperlipidemia, alcohol use disorder with previous subdural hematoma, recent discharge from [facility] who comes in today by medics with an acute flushing reaction. He describes uncomfortable tingling to his skin but beyond that no other concerns. There is no wheezing or respiratory distress. No hives. He notes that he has had similar reactions to niacin in the past. He took his usual medications this morning including a multivitamin that does include a small amount of niacin and a red rice extract that apparently does not include niacin but is new with today being the 3rd dose of this medication. He is able to speak in full sentences has no pain, diaphoresis, fevers Related Data Home Medications ?Medication ?Instructions ?Recorded ?Confirmed amlodipine 10 mg tablet 10 mg PO DAILY 01/20/25 03/02/25 ibuprofen 800 mg tablet 800 mg PO 3XD PRN fever or pain 01/20/25 03/02/25 atorvastatin 80 mg tablet 80 mg PO DAILY 03/02/25 03/02/25 clopidogrel 75 mg tablet 75 mg PO DAILY 03/02/25 03/02/25 ezetimibe 10 mg tablet 10 mg PO DAILY 03/02/25 03/02/25 gabapentin 300 mg capsule 300 mg PO 3XD 03/02/25 03/02/25 hydromorphone 2 mg tablet mg PO PRN pain 03/02/25 metoprolol succinate 25 mg 25 mg PO DAILY 03/02/25 03/02/25 tablet,extended release 24 hr tizanidine 4 mg tablet 4 mg PO 3XD 03/02/25 03/02/25 Previous Rx's ?Medication ?Instructions ?Recorded clonidine HCl 0.1 mg tablet 0.2 mg (2 x 0.1 mg) PO BID #30 tabs 03/06/25 metoprolol succinate 200 mg 50 mg (1/4 x 200 mg) PO DAILY #30 03/06/25 tablet,extended release 24 hr tabs Allergies Allergy/AdvReac Type Severity Reaction Status Date / Time caffeine (CAFFEINE) Allergy Unknown RASH, FEVER Verified 06/21/25 08:33 codeine (CODEINE) Allergy Unknown RASH Verified 06/21/25 08:33 Review of Systems Review of Systems Narrative: Pertinent positive and negative findings as per HPI Patient History Medical History Mixed hyperlipidemia Paroxysmal atrial fibrillation Coronary artery disease Essential hypertension Alcohol withdrawal seizure Subdural hematoma Alcohol abuse Surgical History Status post coronary artery stent placement Status post aortic valve replacement Social History household members: none Smoking Status: Never smoker alcohol intake: current alcohol intake frequency: 3 or more drinks per day Alcohol type: hard liquor Exam Initial Vital Signs Initial Vital Signs: Vital Signs Temperature 98.7 F 06/21/25 08:33 Pulse Rate 77 06/21/25 08:33 Respiratory Rate 15 06/21/25 08:33 Blood Pressure 142/91 H 06/21/25 08:33 Pulse Oximetry 100 06/21/25 08:33 Oxygen Delivery Method Room Air 06/21/25 08:33 General: Healthy appearing, in no acute distress. Able to give a complete and coherent history. Well-nourished well-developed HEENT: Moist mucous membranes, normal sclera with reactive pupils, Respiratory: Lungs are clear to auscultation, no wheezing no rales no rhonchi. Full and symmetrical air movement Cardiac: Regular rate and rhythm no murmurs no bruits Abdomen: Soft, nontender, no rebound or guarding, no flank pain Skin: Diffuse flushing/erythema over his entire body including face, scalp, hands, soles, palms. There are no vesicular areas, no purpura, no skin breakdown and no urticaria Neurologic: Grossly neurologically intact with no obvious asymmetries or abnormalities Extremities: No trauma, well perfused Psych: Cooperative, appropriate insight and affect Course Orders Ordered: Discontinued Medications Aspirin (Aspirin 81 Mg Chew Tab) 324 mg PO NOW ONE Stop: 06/21/25 08:35 Last Admin: 06/21/25 08:41 Dose: 324 mg Documented By: RB Vital Signs Vital signs: Vital Signs - 8 hr 06/21/25 08:33 06/21/25 09:00 06/21/25 09:30 Temperature 98.7 F Pulse Rate 77 62 54 L Respiratory Rate 15 16 Blood Pressure 142/91 H 153/91 H 166/88 H Pulse Oximetry 100 99 100 Oxygen Delivery Method Room Air Room Air Room Air 06/21/25 10:52 Temperature Pulse Rate 83 Respiratory Rate 13 Blood Pressure 137/86 Pulse Oximetry 97 Oxygen Delivery Method Room Air Medical Decision Making [facility] Narrative Medical decision making narrative: 65-year-old gentleman [facility] his [facility] with acute flushing reaction approximately 10 minutes after taking his morning pills. He does have a known reaction to niacin. He was given 325 mg of aspirin and rashes resolved over the 2 hours of observation in the emergency department. There is no evidence of an actual anaphylactic type reaction. No respiratory compromise of any kind. I believe that this was a flushing reaction to niacin rather than an acute allergic reaction We will recommend discontinuing his multivitamin and see if we can find 1 that does not contain niacin and discontinue the red rice extract. It may be that the flushing adverse effects for this gentleman also includes the red rice extract He is safe for transfer back to [facility] Discharge Plan Departure Patient Disposition: Home Clinical Impression: Flushing Activity Restrictions/Additional Instructions: Thank you for coming in today With flushing over your entire body including your face, palms and scalp the most likely explanation is reaction to your medications. With previous sensitivities to niacin that would be the most likely explanation and niacin can do this. I would suggest that you stop the new red rice extract that you started a couple of days ago. It may be that this is cross reacting due to the degree of niacin naturally present in the red rice. There was also small amount of niacin in your multivitamin. I would recommend discontinuing this as well Treatment for niacin flushing is aspirin. You were given an aspirin today and within 2 hours your symptoms have completely resolved. This was not anaphylaxis or an acute allergic reaction and medications for those diagnoses were not required If you find that you are getting worse or develop any new symptoms, please feel free to return to the emergency department for further evaluation. Prescriptions: No Action ibuprofen 800 mg tablet 800 mg PO 3XD PRN (Reason: fever or pain) amlodipine 10 mg tablet 10 mg PO DAILY atorvastatin 80 mg tablet 80 mg PO DAILY clopidogrel 75 mg tablet 75 mg PO DAILY gabapentin 300 mg capsule 300 mg PO 3XD ezetimibe 10 mg tablet 10 mg PO DAILY hydromorphone 2 mg tablet PO PRN (Reason: pain) tizanidine 4 mg tablet 4 mg PO 3XD metoprolol succinate 25 mg tablet extended release 24 hr 25 mg PO DAILY clonidine HCl 0.1 mg Tablet 0.2 mg PO BID Qty: 30 0RF metoprolol succinate 200 mg tablet extended release 24 hr 50 mg PO DAILY Qty: 30 0RF Referrals: Meliton Solorio MD [Primary Care Provider, Family Practice] Stand Alone Forms: Patient Portal/API
[2025-06-21 08:33] VITALS: BP 142/91; PULSE 77; RESP 15; TEMP 37.1; O2SAT 100; BMI 23.6
[2025-06-21] MEDS: ASPIRIN 81 MG CHEW TAB 324 MG PO (08:41)
[2025-06-21 09:00] VITALS: BP 153/91; PULSE 62; O2SAT 99
[2025-06-21 09:30] VITALS: BP 166/88; PULSE 54; RESP 16; O2SAT 100
[2025-06-21 10:52] VITALS: BP 137/86; PULSE 83; RESP 13; O2SAT 97
== END 2025-06-21 11:20 | disposition home or self-care (01) ==
PROVIDERS: Emergency Provider Emergency Medicine; Family Provider Nurse Practitioner Gerontology; PCP Family Medicine
DX: R23.2 Flushing (principal)
CPT/HCPCS: 99283

== ENCOUNTER 2025-07-07 12:27 | Emergency (ER) | payer MEDICARE, SELFPAY ==
[2025-03-02 11:31] VITALS: BMI 23.2
[2025-07-07] VITALS (21 sets, daily range): BP systolic 153–186; BP diastolic 85–105; PULSE 95–123; RESP 13–23; TEMP 36.9; O2SAT 94–100; BMI 25.9
--- NOTE | 2025-07-07 12:50 | DI.CT.S_ITS ---
PROCEDURE: CT ABDOMEN PELVIS W CON INDICATIONS: ETOH, recent falls, TECHNIQUE: After the administration of intravenous contrast, axial sections acquired from the lung bases to the pubic symphysis. Coronal and sagittal reformats were performed. For radiation dose reduction, the following was used: automated exposure control, adjustment of mA and/or kV according to patient size. COMPARISON: [facility], CR, XR CHEST 1V, 06/07/2025, 11:14. [facility], CT, CT TRAUMA CHEST ABDOMEN PELVIS, 05/01/2025, 18:56. FINDINGS: Image quality: Diagnostic. Lower Chest: TAPVR, coronary artery stent, left atrial appendage occlusion device. Normal heart size. Lung bases are clear. ABDOMEN: Liver: No solid mass. Cirrhosis. Moderate diffuse hepatic steatosis. Gallbladder: Multiple small layering gallstones. No gallbladder wall thickening. Biliary ducts: No biliary dilation. Pancreas: No ductal dilation. Spleen: Size is within normal limits. Adrenal Glands: No adrenal nodules. Kidneys and Ureters: No hydronephrosis. No solid mass. No complex renal cystic lesion which requires follow up. Stomach and Bowel: Question walled-off perforation of the superior wall of the stomach at the gastric cardia subjacent to the gastroesophageal junction. Reference coronal image 49 of series 4 and axial image 44 of series 3. This results in what appears to be a filling defect narrowing the lumen of the proximal stomach. This presumed defect is semi circular in appearance and measures approximately 3.2 cm. The presumed perforation measures approximately 1.6 cm in width. Normal colonic caliber, without significant wall thickening. Mild diverticulosis. Peritoneum: No abnormal intraperitoneal fluid. No free air. Ventral Wall: No significant ventral hernia. Abdominal Nodes: No retroperitoneal or mesenteric adenopathy by size criteria. Vessels: Aorta and inferior vena cava are normal in size. PELVIS: Pelvic Organs: Unremarkable. Bladder: No bladder wall thickening, accounting for underdistention. Pelvic Nodes: No enlarged lymph nodes. Miscellaneous: No inguinal hernias are seen. Bones: No aggressive osseous abnormality. Bilateral L4 pars defects with anterolisthesis of L4 on L5 measuring 1.3 cm. There is associated foraminal narrowing bilaterally. IMPRESSION: 1. Question contained perforation of the stomach at the gastric cardia with a presumed muscular defect measuring 1.6 cm in diameter. The process results in a possible filling defect in the lumen of the stomach. This semi circular defect measures approximately 3.2 cm in diameter. There is no free air. 2. Cirrhosis, diffuse hepatic steatosis. 3. Cholelithiasis. 4. Chronic lumbar spine findings as described above. Comment: Findings were discussed with Dr. Tariq on 07/07/2025 at 1516 hours Dictated by: Sriram Cash M.D. on 07/07/2025 at 14:50 Approved by: Sriram Cash M.D. on 07/07/2025 at 15:16
--- NOTE | 2025-07-07 12:50 | DI.CT.S_ITS ---
PROCEDURE: CT HEAD/BRAIN WO CON INDICATIONS: ETOH, recent falls, on thinners TECHNIQUE: Noncontrast 4.5 mm thick angled axial sections acquired from the foramen magnum to the vertex, with coronal and sagittal reformats. For radiation dose reduction, the following was used: automated exposure control, adjustment of mA and/or kV according to patient size. COMPARISON: [facility], CT, CT HEAD/BRAIN WO CON, 06/07/2025, 10:45. FINDINGS: Image quality: Diagnostic. CSF spaces: Basal cisterns are patent. No extra-axial fluid collections. Ventricles are normal in size and shape. Brain: No midline shift. No intracranial mass effect or hemorrhage. Luis- white matter interface is normal. Diffuse cerebral volume loss. Patchy areas of white matter hypoattenuation often associated with small vessel ischemic disease. Intracranial atherosclerotic calcification. Skull and face: Chronic nasal bone fracture. Conner holes x2 along the right skull. Sinuses: Mucosal thickening and air-fluid levels in the maxillary sinuses. IMPRESSION: Right subdural hematoma slightly increased in size compared to prior examination. No midline shift. Dictated by: Devin Magaña M.D. on 07/07/2025 at 14:45 Approved by: Devin Magaña M.D. on 07/07/2025 at 14:50
--- NOTE | 2025-07-07 12:50 | EKG_ITS ---
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
--- OUTSIDE RECORDS SUMMARY | 2025-07-07 13:30 | XMS_ITS | Encounter Summary ---
Author Organization Medicine - [facility] Address [address] [place] [address] Care Team Providers Care Bakery Products Checker Name Role Phone Meliton Solorio MD Primary Care Provider [phone] Encounter Details Date Type Department Care Team (Late st Contact Info) Description 06/09/2025 Orders Only Medicine Transfer Center [address] [place] [address] External, Imaging Ordering Provider [address] [facility] [id number] [place] [address] Sick (Primary Dx) Social History Tobacco Use Types Packs/Day Years Used Date Smoking Tobacco: Never Assessed Housing Stability Vital Sign Answer Chucky e Recorded Unable to Pay for Housing in the Last Year Not o n file 02/04/2025 Number of Times Moved in the Last Year Not on fi le 02/04/2025 At any time in the past 12 m [facility], were you homeless or living in a group home (including now)? No 02/04/2025 Humiliation, Afraid, Rape, and Kick questionnair e Answer Date Recorded Within the last year, have y ou been afraid of your partner or ex-partner? No 06/08/2025 Emotionally Abused Not on file 06/08/2025 Physically Abused Not on file 06/08/2025 Sexually Abused Not on file 06/08/2025 Hunger Vital Sign Answer Date Recorded Within the past 12 months, y ou worried that your food would run out before you got the money to buy more. Never true 06/08/20 25 Ran Out of Food in the Last Year Not on file 06/08/2025 PRAPARE - Transportation Answer Date Re corded In the past 12 months, has l ack of transportation kept you from medical appointments or from getting medications? Yes 06/08/2025 Lack of Transportation (Non-Medical) Not on file 06/08/2025 Housing Stability Vital Sign Answer Chucky e Recorded Unable to Pay for Housing in the Last Year Not o n file 06/08/2025 Number of Times Moved in the Last Year Not on fi le 06/08/2025 At any time in the past 12 m [place], were you homeless or living in a group home (including now)? Yes 06/08/2025 [facility] Utilities Answer Date Recorded In the past 12 months has th e electric, gas, oil, or water company threatened to shut off services in your home? No 06/08/2025 Sex and Gender Information Value Date Recorded Sex Assigned at Male 02/05/2025 12:32 AM PDT Legal Sex Male 4:26 AM PST Gender Identity Male 02/05/2025 12:32 AM PDT Sexual Orientation Straight 02/05/2025 12 :32 AM PDT documented as of this encounter Plan of Treatment Upcoming Encounters Date Type Department Care Team (Late st Contact Info) Description 07/19/2025 8:45 AM PST Appointment [facility] [address], [address] [place] [address] 07/19/2025 10:15 AM PST Office Visit [facility] [address] [place] [id number] documented as of this encounter Results * Radiology Records Intake Request (06/09/2025 11:35 AM PST) Narrative OUTSIDE REFERENCE PERFORMING LAB - 06/09/2025 11:35 AM PST This exam was auto-finalized as it is for image storage only and does not require a radiologist read. For images, please refer to PACS. us Imaging Ordering Provider External IMG X RAY Final Result OUTSIDE REFERENCE PERFORMING LAB (See Results) documented in this encounter Visit Diagnoses Diagnosis Sick- Primary Other unknown and unspecified cause of morbidity or mortality Sick Other unknown and unspecified cause of morbidity or mortality documented in this encounter Care Teams Bakery Products Checker Relationship Specialty Start Date End Date Meliton Solorio MD [address] [facility], [place] [id number] PCP - General Unknown Physician Specialty 02/04/25 documented as of this encounter
[2025-07-07 14:07] LABS: Add Manual Diff / Slide Review NO; Hematocrit 40.2 % (41-53); Hemoglobin 13.6 g/dL (13.5-17.5); Lymphocytes Absolute Auto 1300 /uL (1100-4500); Mean Corpuscular HGB Conc 33.7 % (30-36); Mean Corpuscular Hemoglobin 28.3 PG (26-34); Mean Corpuscular Volume 83.8 fL (80-100); Platelet Count 135 X10^3/uL (150-400)
[2025-07-07] MEDS: LACTATED RINGERS 1,000 ML 1000 ML IV ×3 (14:08→16:50)
[2025-07-07] MEDS: ONDANSETRON 4 MG/2 ML INJ IV ×2 (14:14→15:40)
[2025-07-07 14:41] LABS: Alanine Aminotransferase 62 IU/L (<50); Albumin 5.0 g/dL (3.5-5.0); Albumin Globulin Ratio 1.4 (1.0-2.8); Alkaline Phosphatase 84 U/L (38-126); Blood Urea Nitrogen 22 mg/dL (9-20); Calcium 9.6 mg/dL (8.4-10.2); Carbon Dioxide 13 mmol/L (22-32); Chloride 105 mmol/L (98-107); Estimated Glomerular Filt Rate > 60 mL/min (>60); Globulin 3.6 g/dL (1.7-4.1); Glucose 114 mg/dL (70-99); HEMOLYSIS < 15 (0-50); Lipase 134 U/L (23-300); Potassium 3.8 mmol/L (3.4-5.1); Sodium 143 mmol/L (137-145); Total Protein 8.6 g/dL (6.3-8.2)
--- NOTE | 2025-07-07 15:16 | ED.ALCOHOL ---
HPI - Alcohol General Chief Complaint: Toxicology Problem Stated Complaint: N/V chest px Time Seen by Provider: 07/07/25 12:49 Source: EMS Mode of arrival: EMS History of Present Illness HPI narrative: 65y M hx htn, hld, etoh use/abuse, previous subdural hematoma, seizure CAD status post stent PCI, AFib status post Watchman, severe aortic stenosis with TAVR on 04/06 presents numerous bouts of bilious vomit, abdominal and chest pain today. Last drink a few days ago was 1/5 of whisky. Patient reports hitting his head 5-6 days ago. He is not on longer on any Plavix or Eliquis at this time. Other than what is stated 14 point review of system is negative. Related Data Home Medications ?Medication ?Instructions ?Recorded ?Confirmed amlodipine 10 mg tablet 10 mg PO DAILY 01/20/25 03/02/25 ibuprofen 800 mg tablet 800 mg PO 3XD PRN fever or pain 01/20/25 03/02/25 atorvastatin 80 mg tablet 80 mg PO DAILY 03/02/25 03/02/25 clopidogrel 75 mg tablet 75 mg PO DAILY 03/02/25 03/02/25 ezetimibe 10 mg tablet 10 mg PO DAILY 03/02/25 03/02/25 gabapentin 300 mg capsule 300 mg PO 3XD 03/02/25 03/02/25 hydromorphone 2 mg tablet mg PO PRN pain 03/02/25 metoprolol succinate 25 mg 25 mg PO DAILY 03/02/25 03/02/25 tablet,extended release 24 hr tizanidine 4 mg tablet 4 mg PO 3XD 03/02/25 03/02/25 Previous Rx's ?Medication ?Instructions ?Recorded clonidine HCl 0.1 mg tablet 0.2 mg (2 x 0.1 mg) PO BID #30 tabs 03/06/25 metoprolol succinate 200 mg 50 mg (1/4 x 200 mg) PO DAILY #30 03/06/25 tablet,extended release 24 hr tabs Allergies Allergy/AdvReac Type Severity Reaction Status Date / Time caffeine (CAFFEINE) Allergy Unknown RASH, FEVER Verified 07/07/25 12:55 codeine (CODEINE) Allergy Unknown RASH Verified 07/07/25 12:55 Patient History Medical History Mixed hyperlipidemia Paroxysmal atrial fibrillation Coronary artery disease Essential hypertension Alcohol withdrawal seizure Subdural hematoma Alcohol abuse Surgical History Status post coronary artery stent placement Status post aortic valve replacement Social History household members: none alcohol intake: current alcohol intake frequency: 3 or more drinks per day Alcohol type: hard liquor Exam Narrative Exam Narrative: GENERAL: [65] year old patient appears stated age. Well-developed patient, in mild distress. HEAD: Atraumatic. Normocephalic. EYES: Pupils equal round and reactive. Extraocular motions intact. No scleral icterus. No injection or drainage. ENT: Nose without bleeding, purulent drainage. Throat without erythema, tonsillar hypertrophy or exudate. Airway patent. NECK: Trachea midline. Non tender CARDIOVASCULAR: Regular rate and rhythm without murmurs, gallops, or rubs. RESPIRATORY: Clear to auscultation. Breath sounds equal bilaterally. No wheezes, rales, or rhonchi. GASTROINTESTINAL: Abdomen soft, TTP periumbilcal region but no r/r/g, nondistended. EXTREMITIES: No edema or joint tenderness. BACK: Nontender without deformity or crepitance. No flank tenderness. NEURO: AOx3. SKIN: No rash or erythema of visible areas Initial Vital Signs Initial Vital Signs: Vital Signs Pulse Rate 101 H 07/07/25 12:55 Pulse Oximetry 100 07/07/25 12:55 Course Orders Ordered: ED Orders 07/07/25 12:50 CT abdomen pelvis w con Stat CT head/brain wo con Stat EKG-12 Lead Stat 07/07/25 14:00 Complete Blood Count AUTO DIFF Stat Comprehensive Metabolic Panel Stat Lipase Stat Lactated Ringer's (Lactated Ringers) 1,000 mls @ 1,000 mls/hr IV BOLUS ONE Stop: 07/07/25 15:30 Last Admin: 07/07/25 14:57 Dose: 1,000 mls/hr Documented By: GERRY Ondansetron HCl (Ondansetron 4 Mg/2 Ml Inj) 4 mg IV NOW PRN PRN Reason: Nausea And Vomiting Last Admin: 07/07/25 14:14 Dose: 4 mg Documented By: GERRY Ondansetron HCl (Ondansetron 4 Mg Odt) 4 mg PO NOW PRN PRN Reason: Nausea And Vomiting Discontinued Medications Lactated Ringer's (Lactated Ringers) 1,000 mls @ 1,000 mls/hr IV BOLUS ONE Stop: 07/07/25 15:06 Last Infusion: 07/07/25 14:57 Dose: Infused Documented By: Admin: 07/07/25 14:08 Dose: 1,000 mls/hr Documented By: GERRY Phenobarbital (Phenobarbital 65 Mg/Ml Vial) 260 mg IV NOW ONE Stop: 07/07/25 14:32 Last Admin: 07/07/25 15:00 Dose: 260 mg Documented By: GERRY Vital Signs Vital signs: Vital Signs - 8 hr 07/07/25 12:55 07/07/25 12:56 07/07/25 12:56 Temperature Pulse Rate 101 H 102 H Respiratory Rate 20 Blood Pressure 159/102 H Pulse Oximetry 100 99 Oxygen Delivery Method Room Air 07/07/25 13:00 07/07/25 13:00 07/07/25 13:16 Temperature 98.4 F Pulse Rate 100 H Respiratory Rate 20 Blood Pressure 155/102 H Pulse Oximetry 100 Oxygen Delivery Method 07/07/25 13:30 07/07/25 13:59 07/07/25 13:59 Temperature Pulse Rate 102 H 103 H Respiratory Rate 23 18 Blood Pressure 160/95 H Pulse Oximetry 99 99 Oxygen Delivery Method 07/07/25 14:00 07/07/25 14:00 Temperature Pulse Rate 104 H Respiratory Rate 15 Blood Pressure 153/95 H Pulse Oximetry 99 Oxygen Delivery Method MDM - Alcohol Lab Data 07/07/25 14:00 07/07/25 14:00 Labs: Lab Results 07/07/25 Range/Units 14:00 WBC 7.1 (4.5-11.0) X10^3/uL RBC 4.80 (4.5-5.9) X10^6/uL Hgb 13.6 (13.5-17.5) g/dL Hct 40.2 L (41-53) % MCV 83.8 (80-100) fL MCH 28.3 (26-34) PG MCHC 33.7 (30-36) % RDW 16.6 H (11.6-14.8) % Plt Count 135 L (150-400) X10^3/uL Neut % (Auto) 71.7 (50-75) % Lymph % (Auto) 18.6 L (25-40) % [place] % (Auto) 8.6 (3-14) % Eos % (Auto) 0.0 L (2-4) % Baso % (Auto) 1.1 (0-2) % Neut # (Auto) 5100 (8690-7709) /uL Lymph # (Auto) 1300 (4807-0168) /uL [place] # (Auto) 600 (0-900) /uL Eos # (Auto) 0 (0-450) /uL Baso # (Auto) 100 (0-100) /uL Sodium 143 (137-145) mmol/L Potassium 3.8 (3.4-5.1) mmol/L Chloride 105 (98-107) mmol/L Carbon Dioxide 13 L (22-32) mmol/L BUN 22 H (9-20) mg/dL Creatinine 0.85 (0.66-1.25) mg/dL Estimated GFR > 60 (>60) mL/min BUN/Creatinine Ratio 25.9 H (6-22) Glucose 114 H (70-99) mg/dL Calcium 9.6 (8.4-10.2) mg/dL Total Bilirubin 1.1 (0.2-1.3) mg/dL AST 75 H (17-59) IU/L ALT 62 H (<50) IU/L Alkaline Phosphatase 84 (38-126) U/L Total Protein 8.6 H (6.3-8.2) g/dL Albumin 5.0 (3.5-5.0) g/dL Globulin 3.6 (1.7-4.1) g/dL Albumin/Globulin Ratio 1.4 (1.0-2.8) Lipase 134 (23-300) U/L Imaging Data CT scan - abdomen/pelvis: Radiologist's Impressoin: [address] [address] [address] Scan Report Signed Patient: Gold Alaniz MR#: [id number] : 1960 Acct:[id number] Age/Sex: 65 / M Date of Service: 07/07/25 Loc: ED Accession Number: [id number] Procedure: CT abdomen pelvis w con Ordering Provider: Gian Tariq D.O. PROCEDURE: CT ABDOMEN PELVIS W CON INDICATIONS: ETOH, recent falls, TECHNIQUE: After the administration of intravenous contrast, axial sections acquired from the lung bases to the pubic symphysis. Coronal and sagittal reformats were performed. For radiation dose reduction, the following was used: automated exposure control, adjustment of mA and/or kV according to patient size. COMPARISON: [facility], CR, XR CHEST 1V, 06/07/2025, 11:14. [facility], CT, CT TRAUMA CHEST ABDOMEN PELVIS, 05/01/2025, 18:56. FINDINGS: Image quality: Diagnostic. Lower Chest: TAPVR, coronary artery stent, left atrial appendage occlusion device. Normal heart size. Lung bases are clear. ABDOMEN: Liver: No solid mass. Cirrhosis. Moderate diffuse hepatic steatosis. Gallbladder: Multiple small layering gallstones. No gallbladder wall thickening. Biliary ducts: No biliary dilation. Pancreas: No ductal dilation. Spleen: Size is within normal limits. Adrenal Glands: No adrenal nodules. Kidneys and Ureters: No hydronephrosis. No solid mass. No complex renal cystic lesion which requires follow up. Stomach and Bowel: Question walled-off perforation of the superior wall of the stomach at the gastric cardia subjacent to the gastroesophageal junction. Reference coronal image 49 of series 4 and axial image 44 of series 3. This results in what appears to be a filling defect narrowing the lumen of the proximal stomach. This presumed defect is semi circular in appearance and measures approximately 3.2 cm. The presumed perforation measures approximately 1.6 cm in width. Normal colonic caliber, without significant wall thickening. Mild diverticulosis. Peritoneum: No abnormal intraperitoneal fluid. No free air. Ventral Wall: No significant ventral hernia. Abdominal Nodes: No retroperitoneal or mesenteric adenopathy by size criteria. Vessels: Aorta and inferior vena cava are normal in size. PELVIS: Pelvic Organs: Unremarkable. Bladder: No bladder wall thickening, accounting for underdistention. Pelvic Nodes: No enlarged lymph nodes. Miscellaneous: No inguinal hernias are seen. Bones: No aggressive osseous abnormality. Bilateral L4 pars defects with anterolisthesis of L4 on L5 measuring 1.3 cm. There is associated foraminal narrowing bilaterally. IMPRESSION: 1. Question contained perforation of the stomach at the gastric cardia with a presumed muscular defect measuring 1.6 cm in diameter. The process results in a possible filling defect in the lumen of the stomach. This semi circular defect measures approximately 3.2 cm in diameter. There is no free air. 2. Cirrhosis, diffuse hepatic steatosis. 3. Cholelithiasis. 4. Chronic lumbar spine findings as described above. Comment: Findings were discussed with Dr. Tariq on 07/07/2025 at 1516 hours Dictated by: Sriram Cash M.D. on 07/07/2025 at 14:50 Approved by: Sriram Cash M.D. on 07/07/2025 at 15:16 MDM Narrative Medical decision making narrative: All lab work vital signs nurse triage note medication list previous ER visits in all imaging studies reviewed. Case d/w surgeon here given subdural hematoma will need higher level of care and transfer. Dr. Phill WILLIAMSON MD at [facility] has graciously accepted the patient for ER to ER transfer. CT head shows right subdural hematoma slightly increased in size compared to prior exam. No midline shift. CT abdomen and pelvis Discharge Plan Departure Patient Disposition: [facility] Clinical Impression: Acute subdural hematoma, Gastric perforation Prescriptions: No Action ibuprofen 800 mg tablet 800 mg PO 3XD PRN (Reason: fever or pain) amlodipine 10 mg tablet 10 mg PO DAILY atorvastatin 80 mg tablet 80 mg PO DAILY clopidogrel 75 mg tablet 75 mg PO DAILY gabapentin 300 mg capsule 300 mg PO 3XD ezetimibe 10 mg tablet 10 mg PO DAILY hydromorphone 2 mg tablet PO PRN (Reason: pain) tizanidine 4 mg tablet 4 mg PO 3XD metoprolol succinate 25 mg tablet extended release 24 hr 25 mg PO DAILY clonidine HCl 0.1 mg Tablet 0.2 mg PO BID Qty: 30 0RF metoprolol succinate 200 mg tablet extended release 24 hr 50 mg PO DAILY Qty: 30 0RF Referrals: Meliton Solorio MD [Primary Care Provider, Family Practice]
[2025-07-07] MEDS: MORPHINE 4 MG/ML INJ IV ×2 (15:40→16:40)
[2025-07-07] MEDS: PIPERACILLIN/TAZO 4.5 GM in SODIUM CHLORIDE 0.9% 100 ML IV (15:41)
[2025-07-07 16:22] LABS: Lactate (Lactic Acid) 9.1 mmol/L (0.7-2.1)
[2025-07-07 16:28] LABS: Appearance Urine UA CLEAR; Bilirubin Urine UA NEGATIVE (NEGATIVE); Color Urine UA YELLOW; Glucose Urine UA NEGATIVE (Negative); Ketones Urine UA 2+ (NEGATIVE); Leukocyte Esterase Urine UA NEGATIVE (NEGATIVE); Nitrite Urine UA NEGATIVE (Negative); Occult Blood Urine UA 1+ (Negative); Protein Urine UA 2+ (Negative); Specific Gravity Urine UA 1.025 (1.000-1.035); Urobilinogen Urine UA 0.2 E.U./dL (0.2); pH Urine UA 5.5 (4.5-8.0)
[2025-07-07 16:31] LABS: UR Morphine/Opiate cutoff 300 Positive (Negative); Ur Specific Gravity Normal (Normal); Urine MDMA Negative (Negative); Urine Methamphetamines Negative (Negative); Urine Tetrahydrocannabinol Negative (Negative); Urine Tricyclic Antidepressant Negative (Negative)
[2025-07-07 16:38] LABS: Culture Indicated Urine Cult Not Indicated
[2025-07-07 16:42] LABS: Procalcitonin 0.067 ng/mL (<0.5)
[2025-07-07] MEDS: METOCLOPRAMIDE 10 MG/2 ML INJ IV (16:50)
[2025-07-07 17:41] LABS: Reflexed Lactate in 2 Hours Y
[2025-07-07] MEDS: PROCHLORPERAZINE 10 MG/2 ML VIAL IV (18:03)
== END 2025-07-07 18:11 | disposition short-term general hospital (02) ==
PROVIDERS: Emergency Provider Family Medicine; Family Provider Nurse Practitioner Gerontology; PCP Family Medicine
DX: I62.01 Nontraumatic acute subdural hemorrhage (principal); K25.1 Acute gastric ulcer with perforation; R11.2 Nausea with vomiting, unspecified; F10.10 Alcohol abuse, uncomplicated; I10 Essential (primary) hypertension
CPT/HCPCS: 36415; 70450; 74177; 80053; 80305; 81001; 83605; 83690; 84145; 85025; 87040; 93005; 96361; 96365; 96375; 96376; 99284; J0780; J2272; J2405; J2543; J2560; J2765; J7050; J7120; Q9967